=== PATIENT | male | born 1980 | race African-American/Black ===

== ENCOUNTER 2017-05-29 18:18 | Inpatient (IN) | payer MEDICAID, OTHER ==
[~2017-05-29] VITALS: Ht 190.5 cm; Wt 122.7 kg
[2017-05-29] MEDS ORDERED: CEFEPIME 2GM/50 ML (PMX) 50 ML IVPB STA (18:45)
[2017-05-29] MEDS ORDERED: SODIUM CHLORIDE 0.9% 1L BAG IV* STA (18:45)
[2017-05-29] MEDS ORDERED: ACETAMINOPHEN 650 MG SUPP PR ONE (19:00)
[2017-05-29] MEDS ORDERED: VANCOMYCIN 1 GM (PMX) 250 ML IVPB ONE (19:00)
--- NOTE | 2017-05-29 19:09 | RADRPT ---
PROCEDURE: XR Chest. CLINICAL INDICATION: Possible sepsis TECHNIQUE: Single frontal view of the chest was obtained COMPARISON: None FINDINGS: Tracheostomy tube with tip projecting 4.3 cm above the jenelle. Low lung volumes with bibasilar atelectasis. Perihilar ground-glass opacities most suggestive of mod erate interstitial pulmonary edema. Top normal cardiac silhouette. Elevated right hemidiaphragm. No acute osseous abnormality. IMPRESSION: Findings suggestive of moderate interstitial pulmonary edema. However, atypical infection could also have this appearance. Recommend clinical correlation. Low lung volumes with bibasilar atelectasis. RPTAT: EE Physician Rafael Date Time Electronically viewed and signed by Physician Rafael on 05/29/2017 19:08 /
[2017-05-29 20:08] LABS: ABNORMAL IP MESSAGE 1; BASOPHILS % 0.1 % (0.0-2.0); HEMATOCRIT 44.1 % (42.0-52.0); HEMOGLOBIN 13.7 g/dl (14.0-18.0); LYMPHOCYTES # 0.3 10^3/ul (0.8-2.9); LYMPHOCYTES % 1.5 % (15.0-51.0); MEAN CORPUSCULAR HEMOGLOBIN 22.7 pg (29.0-33.0); MEAN CORPUSCULAR HGB CONC 31.1 g/dl (32.0-37.0); MEAN CORPUSCULAR VOLUME 73.1 fl (82.0-101.0); MEAN PLATELET VOLUME 10.1 fl (7.4-10.4); MONOCYTE # 0.6 10^3/ul (0.3-0.9); MONOCYTES % 2.8 % (0.0-11.0); NEUTROPHIL # 20.5 10^3/ul (1.6-7.5); NEUTROPHILS % 94.8 % (39.0-77.0); PLATELET COUNT 223 10^3/UL (140-415); POSITIVE DIFF @See below; RED BLOOD COUNT 6.03 10^6/ul (4.70-6.10); RED CELL DISTRIBUTION WIDTH 15.5 % (11.5-14.5); WHITE BLOOD COUNT 21.7 10^3/ul (4.8-10.8)
[2017-05-29 20:20] LABS: INR 1.14; PROTIME 14.6 Sec (12.2-14.2); PT RATIO 1.1
[2017-05-29 20:21] LABS: PARTIAL THROMBOPLASTIN TIME 36.4 Sec (25.0-35.0)
[2017-05-29 20:22] LABS: AADO2 Arterial 186.3 mmHg (7.0-24.0); Allen Test ACCEPTAB; Arterial Base Excess -3.8 mmol/L (-3.0-3); Arterial COHb 0.8 % (0.0-3.0); Arterial Fraction of Oxyhgb 97.4 % (93.0-99.0); Arterial HCO3 20.8 mmol/L (22.0-26.0); Arterial MetHb 0.5 % (0.0-1.5); Arterial Total Hemglobin 14.1 g/dl (12.0-18.0); MODE VENT - AC
[2017-05-29 20:25] LABS: ALANINE AMINOTRANSFERASE 58 IU/L (13-69); ALBUMIN 3.9 g/dl (3.3-4.9); ALBUMIN/GLOBULIN RATIO 0.76; ALKALINE PHOSPHATASE 239 IU/L (42-121); ANION GAP 15 (8-16); ASPARTATE AMINO TRANSFERASE 40 IU/L (15-46); BILIRUBIN,INDIRECT 0.4 mg/dl (0-1.1); BILIRUBIN,TOTAL 1.4 mg/dl (0.2-1.3); BLOOD UREA NITROGEN 15 mg/dl (7-20); CALCIUM 9.2 mg/dl (8.4-10.2); CARBON DIOXIDE 22 mmol/L (21-31); CHLORIDE 104 mmol/L (97-110); CREATININE 0.69 mg/dl (0.61-1.24); GLUCOSE 117 mg/dl (70-220); POTASSIUM 4.4 mmol/L (3.5-5.1); SODIUM 137 mmol/L (135-144)
[2017-05-29 20:38] LABS: TROPONIN-I < 0.012 ng/ml (0.00-0.12)
--- NOTE | 2017-05-29 21:06 | ERA ---
ER Documentation Chief Complaint Date/Time DATE: 05/29/17 TIME: 21:03 Chief Complaint BROUGHT IN VIA PRIVATE AMBULANCE DUE TO CATHETER CHANGE HPI 36-year-old male with a history of traumatic brain injury, quadriplegia, seizure disorder, respiratory failure status post tracheostomy, encephalopathy, morbid obesity, anemia, diabetes mellitus type 2 and urinary retention sent to the ED from care home facility, [facility] for Rodriguez placement. Multiple attempts at the care home [facility] were unsuccessful. History is limited due to the patient's clinical condition is obtained entirely from care home facility records and transferring paramedics. No documented change in mental status, seizures, vomiting, respiratory distress or fevers. ROS Unobtainable except as per HPI due to the patient's clinical condition and cognitive impairment. Medications Home Meds Reported Medications Magnesium Hydroxide* (Milk Of Magnesia*) 400 Mg/5 Ml Oral.susp, 30 ML PO Y for CONSTIPATION, ML 05/30/17 Bisacodyl* (Bisacodyl*) 10 Mg Supp, 10 MG WI DAILY for CONSTIPATION, SUPP 05/30/17 Epinephrine (Epipen 2-Shadi) 0.3 Mg/0.3 Ml Pen.injctr, 0.3 MG IM DIRECTED, #1 EA 05/30/17 Diphenhydramine Hcl (Banophen) 12.5 Mg/5 Ml Liquid, 25 MG PO Q6 for ITCHING 05/30/17 Diphenhydramine in 0.9 % NaCl (Diphenhydramine 25 mg/50 ml-Ns) 25 Mg/50 Ml Piggyback, 12.5 MG IV 05/30/17 Hydrocodone Bit-Acetaminophen (Hydrocodone Bit-APAP) 5-325MG Tablet, 1.5 TAB PO Q6H, TAB 05/30/17 Acetaminophen* (Tylophen*) 500 Mg Capsule, 1000 MG PO Q6H Y for PAIN LEVEL 6-10 , TAB 05/30/17 Insulin Glargine* (Lantus*) 100 Unit/Ml Soln, 8 UNIT SC QHS, #1 VIAL 05/30/17 Sennosides* (Senna* Liq) 8.8 Mg/5 Ml Syrup, 5 ML PO BID, BOTTLE 05/30/17 Ipratropium-Albuterol (Ipratropium-Albuterol) 0.5-3 Mg/3 Ml Ampul.neb, 3 ML INHALATION Q6, #30 VIAL 05/30/17 Ipratropium [place]* (Atrovent HFA*) 12.9 Gm Aer.w.adap, 2 PUFF INHALATION Q4H for SHORTNESS OF BREATH, #1 INHALER 05/30/17 Docusate Sodium (Docu Liquid) 50 Mg/5 Ml Liquid, 200 MG PO DAILY 05/30/17 Selenomethionine* (Selenium*) 200 Mcg Tablet, 200 MCG PO DAILY, TAB 05/30/17 Ascorbic Acid (Vitamin C) 500 Mg Tab, 500 MG PO DAILY, TAB 05/30/17 Phenobarbital* (Phenobarbital*) 64.8 Mg Tablet, 64.8 MG PO BID, TAB 05/30/17 Fish Oil/Dha/Epa (FISH OIL 1,200 MG FISH OIL) 1 Each Capsule, 1 EACH PO TID, CAP 05/30/17 Calcium Carbonate/Vitamin D3 (Calcium 500 + Vit D 200 Tablet) 1 Each Tablet, 1 EACH PO DAILY, TAB 05/30/17 Polyethylene Glycol* (Miralax*) 17 Gm Powd.pack, 17 GM PO DAILY, #30 PACKET 05/30/17 Esomeprazole Magnesium (Esomeprazole Magnesium) 40 Mg Capsule.dr, 40 MG PO BEFORE BREAKFAST, #30 CAP 05/30/17 Lorazepam* (Lorazepam*) 1 Mg Tablet, 2 MG PO Q6 Y for SEIZURES, #60 TAB 05/30/17 Levalbuterol Hcl* (Levalbuterol Hcl*) 1.25 Mg/3 Ml Vial.neb, 1.25 MG INHALATION Q6H Y for WHEEZING AND SOB, VIAL 05/30/17 Baclofen* (Baclofen*) 10 Mg Tablet, 10 MG PO TID, TAB 05/30/17 Multivitamins* (Theragran*) 1 Tab Tab, 1 TAB PO DAILY, TAB 05/30/17 Allergies Allergies: Coded Allergies: No Known Allergy (Unverified , 05/29/17) PMhx/Soc As per [facility], care home facility resident. Medical and Surgical Hx: Unable to obtain History of Surgery: Yes (G-tube, tracheostomy) Hx Neurological Disorder: Yes (Quadraplegia, seizures) Hx Respiratory Disorders: Yes (vent dependent resp failure) Hx Cardiac Disorders: No Hx Psychiatric Problems: No Hx Miscellaneous Medical Probl: Yes Hx Alcohol Use: No Hx Substance Use: No Hx Tobacco Use: No Smoking Status: Never smoker FmHx Not relevant to presenting complaint Physical Exam Vitals Vital Signs Date Time Temp Pulse Resp B/P Pulse Ox O2 Delivery O2 Flow Rate FiO2 05/29/17 21:25 87 14 100 50 05/29/17 19:10 83 14 100 50 05/29/17 18:54 109 19 121/83 100 Mechanical Ventilator Trach Collar 05/29/17 18:53 109 17 100 50 05/29/17 18:22 101.0 104 19 98/56 95 Physical Exam Const: Chronically ill appearing, unresponsive. Head: s/p craniotomy Eyes: Normal Conjunctiva ENT: Normal External Ears, Nose and Mouth. Mucous membranes moist. Neck: Tracheostomy. No erythema, induration or drainage. Resp: BS diminished bilaterally with assisted ventilation. No wheezing. Cardio: Tachycardia. Regular rate and rhythm, no murmurs Abd: Soft, non tender. Normal bowel sounds. Mild suprapubic distention. G- tube site clean. Skin: No petechiae or rashes Back: No deformity Ext: No cyanosis. 1+edema Neur: Unresponsive, quadriplegia Physical exam is limited due to the constraints imposed by the patients clinical condition. Result Diagram: 05/30/17 0736 05/30/17 0736 Results 24 hrs Laboratory Tests Test 05/29/17 18:51 05/29/17 19:40 Blood Gas Specimen Source Blood arterial Arterial Blood Date Drawn 05/29/2017 8:10:58 PM Arterial Blood pH (Temp corrected) 7.373 Arterial Blood pCO2 (Temp correct) 36.5mmhg Arterial Blood pO2 (Temp corrected) 129.1mmHG Arterial Blood HCO3 20.8mmol/L Arterial Blood Base Excess -3.8mmol/L Arterial Blood Oxygen Saturation 98.7mmHG Robin Test ACCEPTAB Arterial Blood Gas Puncture Site Right Radial Arterial Blood Carboxyhemoglobin 0.8% Arterial Blood Methemoglobin 0.5% Blood Gas A-a O2 Differential 186.3mmHg Oxyhemoglobin Percent 97.4% Total Hemoglobin 14.1g/dl Blood Gas Temperature 37.0C Blood Gas Respiration Rate 14.0 Blood Gas Actual Respiration Rate 14 Blood Gas Modality VENT - AC FiO2 50.0% Blood Gas Tidal Volume 600.0mL Blood Gas Low PEEP Setting 5.0cmH2O Blood Gas Notified Whom MA Blood Gas Notified Time 05/29/2017 8:22:37 PM White Blood Count 21.710^3/ul Red Blood Count 6.0310^6/ul Hemoglobin 13.7g/dl Hematocrit 44.1% Mean Corpuscular Volume 73.1fl Mean Corpuscular Hemoglobin 22.7pg Mean Corpuscular Hemoglobin Concent 31.1g/dl Red Cell Distribution Width 15.5% Platelet Count 56142^3/UL Mean Platelet Volume 10.1fl Neutrophils % 94.8% Lymphocytes % 1.5% Monocytes % 2.8% Eosinophils % 0.0% Basophils % 0.1% Nucleated Red Blood Cells % 0.0/100WBC Neutrophils # 20.510^3/ul Lymphocytes # 0.310^3/ul Monocytes # 0.610^3/ul Eosinophils # 0.010^3/ul Basophils # 0.010^3/ul Nucleated Red Blood Cells # 0.010^3/ul Prothrombin Time 14.6Sec Prothrombin Time Ratio 1.1 INR International Normalized Ratio 1.14 Activated Partial Thromboplast Time 36.4Sec Sodium Level 137mmol/L Potassium Level 4.4mmol/L Chloride Level 104mmol/L Carbon Dioxide Level 22mmol/L Anion Gap 15 Blood Urea Nitrogen 15mg/dl Creatinine 0.69mg/dl Glucose Level 117mg/dl Lactic Acid Level 1.6mmol/L Calcium Level 9.2mg/dl Total Bilirubin 1.4mg/dl Direct Bilirubin 1.00mg/dl Indirect Bilirubin 0.4mg/dl Aspartate Amino Transf (AST/SGOT) 40IU/L Alanine Aminotransferase (ALT/SGPT) 58IU/L Alkaline Phosphatase 239IU/L Troponin I < 0.012ng/ml Total Protein 9.0g/dl Albumin 3.9g/dl Globulin 5.10g/dl Albumin/Globulin Ratio 0.76 Current Medications Medications (Trade) Dose Ordered Sig/Jh Route PRN Reason Start Time Stop Time Status Last Admin Dose Admin Sodium Chloride 3800 ml 3,800 ml BOLUS OVER 2 HOURS STAT IV* 05/29/17 18:45 05/29/17 18:48 DC 05/29/17 18:45 Cefepime HCl 50 ml @ 100 mls/hr ONCE STAT IVPB 05/29/17 18:45 05/29/17 19:14 DC 05/29/17 18:45 Vancomycin HCl (Vancocin) 250 ml @ 125 mls/hr ONCE ONCE IVPB 05/29/17 19:00 05/29/17 20:59 DC 05/29/17 19:00 Acetaminophen (Tylenol Supp) 650 mg ONCE ONCE WI 05/29/17 19:00 05/29/17 19:01 DC 05/29/17 19:00 IMAGING: PROCEDURE: XR Chest. CLINICAL INDICATION: Possible sepsis TECHNIQUE: Single frontal view of the chest was obtained COMPARISON: None FINDINGS: Tracheostomy tube with tip projecting 4.3 cm above the jenelle. Low lung volumes with bibasilar atelectasis. Perihilar ground-glass opacities most suggestive of moderate interstitial pulmonary edema. Top normal cardiac silhouette. Elevated right hemidiaphragm. No acute osseous abnormality. IMPRESSION: Findings suggestive of moderate interstitial pulmonary edema. However, atypical infection could also have this appearance. Recommend clinical correlation. Low lung volumes with bibasilar atelectasis. EKG: Time:18:58. Sinus tachycardia. Ventricular rate 113. Incomplete right bundle branch block. Nonspecific T-wave changes. No acute ST segment elevation or depression. No ectopy. EP interpretation: Abnormal ECG. Procedures/MDM DOCUMENTS REVIEWED: ED nurse, care home facility records and EMS report. MEDICAL DECISION MAKIN-year-old male with a history of traumatic brain injury, quadriplegia, seizure disorder, respiratory failure status post tracheostomy, encephalopathy, morbid obesity, anemia, diabetes mellitus type 2 and urinary retention sent to the ED from care home facility, [facility] for Rodriguez placement. SIRS criteria include fever, tachycardia and leukocytosis. Sepsis likely secondary to urinary tract infection and bacteremia. Possible pneumonia. NS 30cc/kg bolus, Zosyn and Vancomycin given after cultures. No hypotension, elevated lactate or criteria for severe sepsis or septic shock. Urinary retention with multiple unsuccessful catheterization attempts will require urology consultations. Admit to telemetry. PROCEDURES: CRITICAL CARE TIME: Due to the high probability of sudden clinically significant respiratory, hemodynamic and cardiovascular deterioration, this patient with vent dependent respiratory failure, quadriplegia s/p TBA who now present with SIRS and sepsis required multiple, frequent reevaluations of vital signs and response to therapy. Additional critical care time was spent in interpretation of relevant clinical data including labs, imaging studies and ABG 's, ventilator management, obtaining supplemental history from EMS and family, review of SNF records and arranging for ongoing care with the admitting physician, Dr. Conway. TOTAL CRITICAL CARE TIME: 40 minutes not including other separately reportable procedures. Counseled family regarding diagnosis, diagnostic results and plan for admission. CALLS/CONSULTS: Time 21:10, Dr. Conway. PATIENT CARE TRANSITIONED: Time: 21:20, Dr. Conway. Departure Diagnosis: Primary Impression: Sepsis Qualified Code: A41.9 - Sepsis, due to unspecified organism Additional Impressions: SIRS (systemic inflammatory response syndrome) Post-traumatic quadriplegia Urinary retention Respiratory failure, chronic Qualified Code: J96.10 - Chronic respiratory failure, unspecified whether with hypoxia or hypercapnia Tracheostomy dependence Condition: Critical ELI BROOKS MD May 29, 2017 21:06
[2017-05-29] MEDS ORDERED: ONDANSETRON 4 MG INJ IV PRN (22:00)
[2017-05-29] MEDS ORDERED: ACETAMINOPHEN 325 MG TAB PO PRN (22:00)
[2017-05-29 22:06] VITALS: TEMP 99
--- NOTE | 2017-05-29 23:04 | RADRPT ---
PROCEDURE: Ultrasound abdomen limited. CLINICAL INDICATION: Rodriguez catheter placement.. TECHNIQUE: Ultrasound of the urinary bladder was performed via a transabdominal approach, [employer] g sun scale imaging. COMPARISON: None. FINDINGS: The urinary bladder measures 10.0 x 10.0 x 6.4 cm. The urinary bladder wall thickening is identified . There is echogenic material the posterior urinary bladder lumen, nonspecific. No Rodriguez catheter is visualized. IMPRESSION: 1. No Rodriguez catheter is visualized. 2. Echogenic material in the posterior bladder lumen. This is nonspecific but could represent sedim ent, blood, or possibly a bladder mass. Doppler imaging was not performed. Correlation with urinalys is is recommended. RPTAT: HTAR .Juan Soto MD, MD Date Time Electronically viewed and signed by .Juan Soto MD, on 05/29/2017 23:04 .R/
[2017-05-29] MEDS ORDERED: PHENOBARBITAL 32.4 MG TAB GTB ONE (23:30)
[2017-05-30] VITALS (24 sets, daily range): BP systolic 98–133; BP diastolic 54–97; PULSE 79–133; RESP 14–26; Ht 190.5 cm; Wt 122.7 kg
[2017-05-30] MEDS ORDERED: MULTI PO (01:18)
[2017-05-30] MEDS ORDERED: ESOM40CA51 PO (01:28)
[2017-05-30] MEDS ORDERED: LORA1TAB PO (01:28)
[2017-05-30] MEDS ORDERED: LEVA1.257 INHALATION (01:28)
[2017-05-30] MEDS ORDERED: CALC-61 PO (01:28)
[2017-05-30] MEDS ORDERED: POLY17PO6 PO (01:28)
[2017-05-30] MEDS ORDERED: FISH1CAP PO (01:28)
[2017-05-30] MEDS ORDERED: BACL10TA PO (01:28)
[2017-05-30] MEDS ORDERED: PHEN64.8 PO (01:55)
[2017-05-30] MEDS ORDERED: HYDR-3498 PO (01:55)
[2017-05-30] MEDS ORDERED: SENN8.8S5 PO (01:55)
[2017-05-30] MEDS ORDERED: EPIN0.3P4 IM (01:55)
[2017-05-30] MEDS ORDERED: SELE200T11 PO (01:55)
[2017-05-30] MEDS ORDERED: IPRA3AMP INHALATION (01:55)
[2017-05-30] MEDS ORDERED: DIPH25PI2 IV (01:55)
[2017-05-30] MEDS ORDERED: LANT3I SC (01:55)
[2017-05-30] MEDS ORDERED: DOCU50LI11 PO (01:55)
[2017-05-30] MEDS ORDERED: ASC500 PO (01:55)
[2017-05-30] MEDS ORDERED: BISA10SU75 PR (01:55)
[2017-05-30] MEDS ORDERED: IPRA12.93 INHALATION (01:55)
[2017-05-30] MEDS ORDERED: ACET500C5 PO (01:55)
[2017-05-30] MEDS ORDERED: DIPH12.541 PO (01:55)
[2017-05-30] MEDS ORDERED: MAGN400O4 PO (01:58)
[2017-05-30] MEDS ORDERED: HYDROmorphONE 2 MG/ML SYG IV PRN (02:07)
[2017-05-30] MEDS: LORAZEPAM 1 MG TAB PO PRN ×2 (02:38→09:40)
[2017-05-30] MEDS ORDERED: SOD CHLORIDE 0.9% 1,000 ML IV SCH (02:45)
[2017-05-30] MEDS ORDERED: BARIUM SULF 2% 450 ML BTL (BERRY SMOOTHIE) PO ONE (03:00)
[2017-05-30] MEDS ORDERED: ONDANSETRON 4 MG INJ IV PRN (03:00)
[2017-05-30] MEDS ORDERED: ACETAMINOPHEN 500 MG TAB PO PRN (03:00)
[2017-05-30] MEDS ORDERED: IPRATROPIUM (HFA) 12.9 GM INHALER INH SCH (03:00)
[2017-05-30] MEDS ORDERED: NACL 0.9% 3 ML SYG IV SCH (03:00)
[2017-05-30] MEDS ORDERED: VANCOMYCIN IV PER PHARMACY XX SCH (03:00)
[2017-05-30] MEDS ORDERED: VANCOMYCIN 1.5 GM in SOD CHLORIDE 0.9% 250 ML IVPB SCH (06:00)
--- NOTE | 2017-05-30 06:26 | HP ---
Date/Time of Note Date/Time of Note DATE: 05/30/17 TIME: 06:06 Assessment/Plan VTE Prophylaxis VTE Prophylaxis Intervention: SCD's Lines/Catheters IV Catheter Type (from [facility]): Saline Lock Urinary Cath still in place: No (failed cisneros placement 1x; failed straight cath x2) Assessment/Plan Assessment/Plan 1. Urinary tract obstruction -Multiple attempts to insert the Cisneros as well as straight cath was unsuccessful. Patient now with gross hematuria, most likely from urethral injury -Urology consult 2. Sepsis, as evidenced by fever and leukocytosis, most likely secondary to UTI , and possibly from pneumonia as well -IV antibiotic -will send blood culture and when able urinalysis and urine culture as well. 3. Chronic trach/vent dependent respiratory failure -Continue vent support -Pulmonary to manage 4. Chronic vegetative state, Quadriplegia -Supportive care - Daughter Ellen Fuchs ([phone]) has conservatorship. 5. Dysphagia, s/p G-tube -Resume tube feeding HPI/ROS Admit Date/Time Admit Date/Time May 29, 2017 at 21:56 Hx of Present Illness This is a 36-year-old male who is in a chronic vegetative state, with a history of quadriplegia, trach/vent dependent respiratory failure, anemia, type II diabetes mellitus and urinary retention who was sent to the ED from SNF for Cisneros placement. Multiple attempts at the nursing home facility were unsuccessful. Patient is in a vegetative type of state and as such information is gathered from review of ER notes. Per ER, daughter Ellen Fuchs ) has conservatorship. She stated that he had similar problem with the Cisneros insertion years ago. When he presented to the ER, attempt to place a Cisneros was unsuccessful. He actually since then has been having gross hematuria. After Cisneros was inserted in the ER, abdominal ultrasound was done that showed nonspecific echogenic material in the posterior bladder lumen, which could represent sediment, blood, or possibly a bladder mass. No Cisneros was seen in the bladder. Once admitted to the floor, a straight catheterization was unsuccessful. Initial vitals shows temperature of 101 and the labs shows a WBC of almost 22, 000. CXR showed Findings suggestive of moderate interstitial pulmonary edema. However, atypical infection could also have this appearance. Urinalysis has not been done. . PMH/Family/Social Social History Smoking Status: Unknown if ever smoked Exam/Review of Systems Vital Signs Vitals Vital Signs Date Time Temp Pulse Resp B/P Pulse Ox O2 Delivery O2 Flow Rate FiO2 05/30/17 04:34 89 05/30/17 04:18 99.0 20 98/54 97 05/30/17 03:00 50 05/29/17 22:06 Mechanical Ventilator Trach Collar Exam Constitutional: other (Trach connected to the vent. Nonverbal. No acute distress) Head: atraumatic, normocephalic Neck: other (Trach tube in place) Respiratory: diminished breath sounds Cardiovascular: other (Tachycardic with regular rhythm) Gastrointestinal: other (G-tube in place, no sign of infection in the surrounding), surgical scars Extremities: normal pulses Labs Result Diagram: 05/29/17193905/29/171939 Medications Medications Current Medications Hydromorphone HCl (Dilaudid) 1.5 mg ONCE PRN IV PAIN Last administered on 02:24; Admin Dose 1.5 MG; Start 05/30/17 at 02:07 Lorazepam 2 mg 2 mg Q6H PRN PO SEIZURES Last administered on 05/30/17 02:38; Admin Dose 2 MG; Start 05/30/17 at 02:30 Sodium Chloride (NS) 1,000 ml @ 100 mls/hr Q10H IV ; Start 05/30/17 at 02:45; Stop 05/31/17 at 23:00 Ondansetron HCl (Zofran Inj) 4 mg Q6H PRN IV NAUSEA AND/OR VOMITING; Start at 03:00 Acetaminophen (Tylenol Tab) 650 mg Q6H PRN PO PAIN LEVEL 1-3 OR FEVER; Start at 03:00 Acetaminophen (Tylenol Tab) 1,000 mg Q6H PRN PO PAIN LEVEL 6-10; Start at 03:00 Ascorbic Acid (Vitamin C) 500 mg DAILY PO ; Start 05/30/17 at 09:00 Baclofen (Lioresal) 10 mg TID PO ; Start 05/30/17 at 09:00 Bisacodyl (Dulcolax Supp) 10 mg DAILY [place] ; Start 05/30/17 at 09:00 Docusate Sodium (Colace Liquid Cup) 200 mg DAILY PO ; Start 05/30/17 at 09:00 Insulin Glargine (Lantus) 8 unit QHS SC ; Start 05/30/17 at 21:00 Multivitamins Therapeutic (Theragran) 1 tab DAILY PO ; Start 05/30/17 at 09:00 Phenobarbital (Luminal) 64.8 mg BID PO ; Start 05/30/17 at 09:00 Polyethylene Glycol (Miralax) 17 gm DAILY PO ; Start 05/30/17 at 09:00 Senna 5 ml 5 ml BID PO ; Start 05/30/17 at 09:00 Cefepime HCl 50 ml @ 100 mls/hr Q12 IVPB ; Start 05/30/17 at 09:00 Vancomycin HCl/ Sodium Chloride (Vancocin/NS) 250 ml @ 83.333 mls/ hr Q8H IVPB ; Start 05/30/17 at 06:00 MYRON LAMA MD May 30, 2017 06:16
[2017-05-30] MEDS ORDERED: GLUCOSE GEL 15 GRAM TUBE PO PRN ×2 (07:30)
[2017-05-30] MEDS ORDERED: GLUCOSE GEL 15 GRAM TUBE BUCCAL PRN (07:30)
[2017-05-30] MEDS ORDERED: GLUCAGON 1 MG INJ IM PRN (07:30)
[2017-05-30] MEDS ORDERED: DEXTROSE 50% 50 ML SYRINGE IV PRN ×2 (07:30)
--- NOTE | 2017-05-30 07:46 | RADRPT ---
PROCEDURE: CT Abdomen and Pelvis without contrast. CLINICAL INDICATION: Abdominal pain. Abnormal ultrasound. Bladder mass. TECHNIQUE: CT scan of the abdomen and pelvis without contrast was performed on a multidetector hig h-resolution CT scanner. The patient was scanned without intravenous contrast. Evaluation for under lying bladder mass is limited due to lack of IV contrast. Evaluation is limited as the patient's arm s are in the field of view causing significant scatter artifact. Coronal and sagittal reformatted im ages were obtained from the axial source images. Images were reviewed on a high-resolution PACS work station. The total exam CTDI equals 23.25 mGy and the total exam DLP equals 1746.76 mGy-cm. One or more of the following dose reduction techniques were used: - Automated exposure control. - Adjustment of the mA and/or kV according to patient size. - Use of iterative reconstruction technique. COMPARISON: US ABDOMEN 05/29/2017; DR CHEST 05/29/2017 FINDINGS: Limited study due to lack of IV contrast. CT abdomen: Severe dense confluent consolidation is seen involving the entire right lower lung. The right upper lung is still aerated at this time. Dense subsegmental atelectasis is seen in the posterior left jonah g base. Increased vascular congestion and mild subtle interstitial edema is seen scattered throughou t the lungs as well. The heart size is normal, without pericardial thickening or effusion. The liver is normal in size and density without focal mass or intrahepatic biliary dilatation. The spleen is normal in size and homogeneous in density. The stomach is partially collapsed, but is gwen ssly unremarkable. There is a G-tube in place within the stomach, in appropriate location. The pancr eas as visualized is normal. The gallbladder is remarkable for numerous small subtle layering galls tones; the biliary tree is unremarkable and there is no evidence for biliary dilatation. The adrena l glands are symmetric and normal. The kidneys are symmetrically remarkable for mild bilateral hydr onephrosis. The ureters are dilated down to the bladder region. No renal calculus or renal mass les ion is seen. The aorta is of normal caliber. Aortic vascular calcifications are present. There is no retroperit michaels lymphadenopathy. Abundant small shoddy reactive lymph nodes are seen throughout the retroperi toneum, not pathologically enlarged by size criteria. The crystal hepatis region is clear. The bowel and mesentery, as visualized, are equally unremarkable. Surgical microstaple line is seen involving a loop of bowel in the right anterior mid abdomen, old and chronic. Minimal fluid and soft tissue th ickening along the right pericolic gutter region is seen, nonspecific. CT pelvis: The bladder is distended. Air is seen along the anterior and wall of the bladder secondary to previo us recent instrumentation. There is significant hyperdense material along the posterior dependent po rtion of the bladder presumably representing hemorrhage. The patient has a history of mass lesion an d this hemorrhage may be obscure an underlying mass lesion. Further evaluation with cystoscopy is ad vised as evaluation is significantly limited due to lack of IV contrast. The small bowel loops situated within the pelvis are unremarkable. The ureters are mildly dilated do wn to the bladder. There is obstruction of the ureters secondary to the hemorrhage and bladder diste nsion and other acute process ongoing within the bladder at this time. The pelvic organs are grossly unremarkable. The prostate gland does not appear to be significantly enlarged. The pelvic sidewall s and inguinal regions are clear. The sigmoid colon and rectum are remarkable for contrast within t he distal colon. No acute colonic abnormality is present. No pelvic mass or adenopathy is seen. No free fluid is present. No acute inflammation is identified at this time. The surrounding osseous structures are remarkable for degenerative spondylosis of the spine. No ost eolytic or osteoblastic lesion is detected. Multiple mild subtle superior endplate compression fract ures throughout the lumbar spine is seen at every level. These are benign and chronic in nature. Cirilo ign chronic senescent changes are seen elsewhere throughout the study. Diffuse bony demineralization is present. Severe chronic degenerative changes of the hip joints is seen bilaterally. IMPRESSION: 1. Limited evaluation due to lack of IV contrast. 2. Distended bladder with a large area of presumed hemorrhage accumulating within the bladder. Unde rlying bladder mass cannot be excluded, and further evaluation with cystoscopy is advised. 3. Dense confluent consolidation involving the entire right lower lung, with dense subsegmental ate lectasis in the posterior left lung base. 4. Bilateral hydronephrosis secondary to ureteral obstruction at the level of the bladder. 5. Severe chronic bony demineralization with multiple old vertebral body compression fractures. 6. Other benign reactive changes and postsurgical changes, as discussed above. RPTAT: HMJB .Erich García MD, MD Date Time Electronically viewed and signed by .Erich García MD, MD on 05/30/2017 07:46 .B/
[2017-05-30] MEDS ORDERED: ALBUTEROL/IPRATROPIUM (NEB) 3 ML AMP HHN SCH (08:00)
[2017-05-30] MEDS: ALBUTEROL 18 GM INHALER INH SCH ×3 (08:04→19:33)
[2017-05-30] MEDS: IPRATROPIUM (HFA) 12.9 GM INHALER INH SCH ×3 (08:04→19:33)
[2017-05-30 08:09] LABS: ABNORMAL IP MESSAGE 1; BASOPHIL # 0.1 10^3/ul (0.0-0.1); BASOPHILS % 0.3 % (0.0-2.0); EOSINOPHILS # 0.1 10^3/ul (0.0-0.5); EOSINOPHILS % 0.3 % (0.0-7.0); HEMATOCRIT 39.3 % (42.0-52.0); HEMOGLOBIN 11.8 g/dl (14.0-18.0); LYMPHOCYTES # 0.7 10^3/ul (0.8-2.9); MEAN CORPUSCULAR HEMOGLOBIN 22.3 pg (29.0-33.0); MEAN CORPUSCULAR VOLUME 74.3 fl (82.0-101.0); MEAN PLATELET VOLUME 10.6 fl (7.4-10.4); MONOCYTE # 1.1 10^3/ul (0.3-0.9); MONOCYTES % 4.8 % (0.0-11.0); NEUTROPHIL # 20.6 10^3/ul (1.6-7.5); NEUTROPHILS % 90.2 % (39.0-77.0); PLATELET COUNT 199 10^3/UL (140-415); POSITIVE DIFF @See below; RED BLOOD COUNT 5.29 10^6/ul (4.70-6.10); WHITE BLOOD COUNT 22.8 10^3/ul (4.8-10.8)
[2017-05-30 08:35] LABS: ALBUMIN 3.5 g/dl (3.3-4.9); ALBUMIN/GLOBULIN RATIO 0.72; BILIRUBIN,DIRECT 0.7 mg/dl (0.00-0.20); BILIRUBIN,INDIRECT 0.5 mg/dl (0-1.1); BILIRUBIN,TOTAL 1.2 mg/dl (0.2-1.3); CALCIUM 8.4 mg/dl (8.4-10.2); CREATININE 0.62 mg/dl (0.61-1.24); MAGNESIUM 1.8 mg/dl (1.7-2.5); POTASSIUM 4.5 mmol/L (3.5-5.1); TOTAL PROTEIN 8.3 g/dl (6.1-8.1)
[2017-05-30] MEDS: SENNA (PO SYG) PO SCH (09:00)
[2017-05-30] MEDS: DOCUSATE SODIUM 10 MG/ML (10ML CUP) PO SCH (09:00)
[2017-05-30] MEDS: BISACODYL 10 MG SUPP PR SCH (09:00)
[2017-05-30] MEDS: POLYETHYLENE GLYCOL 17 GM PACKET PO SCH (09:00)
[2017-05-30] MEDS: CEFEPIME 1GM/50 ML (PMX) 50 ML IVPB SCH ×2 (09:40→22:08)
[2017-05-30] MEDS: ASCORBIC ACID 500 MG TAB PO SCH (09:40)
[2017-05-30] MEDS: MULTIVITAMINS THERAPEUTIC TAB PO SCH (09:40)
[2017-05-30] MEDS: BACLOFEN 10 MG TAB PO SCH ×3 (09:40→22:08)
[2017-05-30] MEDS: PHENOBARBITAL 32.4 MG TAB PO SCH ×2 (09:47→22:22)
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
[2017-05-30 12:08] LABS: IRON 26 ug/dl (35-150)
[2017-05-30 12:17] LABS: TOTAL IRON BINDING CAPACITY 252 ug/dl (241-421)
[2017-05-30] MEDS: SOD CHLORIDE 0.45% 1,000 ML IV SCH (13:09)
[2017-05-30] MEDS ORDERED: LIDOCAINE 1% (MPF) 5 ML VIAL SC ONE ×2 (14:00)
[2017-05-30] MEDS ORDERED: EPINEPHRINE 0.3 MG IM SCH (15:00)
[2017-05-30] MEDS ORDERED: IOHEXOL 300MG/ML 30 ML BTL ONE (15:16)
--- NOTE | 2017-05-30 15:52 | RADRPT ---
PROCEDURE: Ultrasound guidance for placement of needle in left upper extremity vein. CLINICAL INDICATION: Venous access. TECHNIQUE: Limited sonography of the left upper extremity was performed. Ultrasound images were recorded and s tored in the patient's medical record. COMPARISON: None. FINDINGS: The ultrasound images demonstrate a patent left upper extremity vein. The PICC line was inserted by the PICC line nurse. IMPRESSION: 1. Ultrasound guidance for a needle placement in a left upper extremity vein. 2. The left upper extremity vein is patent. RPTAT: QQ .Quirino Valera MD, MD Date Time Electronically viewed and signed by .Quirino Valera MD, MD on 05/30/2017 15:52 .R/
--- NOTE | 2017-05-30 16:36 | RADRPT ---
PROCEDURE: XR Chest. CLINICAL INDICATION: PICC line placement . TECHNIQUE: Single frontal chest x-ray. COMPARISON: None. FINDINGS: There is a guide wire extending from the left upper extremity with tip at the subclavian region. Tra cheostomy tube is in place. . There is bibasilar atelectasis or consolidations increased on the righ t.. Cardiomegaly is unchanged.. The osseous structures are intact. IMPRESSION: Tracheostomy tube in place. Bibasilar atelectasis or consolidations increased on the right. Left upper extremity guidewire in place with tip at the subclavian region.. RPTAT: GG .Guero Powers MD, Date Time Electronically viewed and signed by .Guero Powers MD, on 05/30/2017 16:35 .L/
[2017-05-30] MEDS ORDERED: LEVALBUTEROL (NEB) 1.25 MG/0.5 ML AMP INH PRN (17:00)
--- NOTE | 2017-05-30 17:11 | RADRPT ---
PROCEDURE: Ultrasound guidance for placement of needle in right upper extremity vein. CLINICAL INDICATION: Venous access. TECHNIQUE: Limited sonography of the right upper extremity was performed. Ultrasound images were recorded and stored in the patient's medical record. COMPARISON: None. FINDINGS: The ultrasound images demonstrate a patent right upper extremity vein. The PICC line was inserted b y the PICC line nurse. IMPRESSION: 1. Ultrasound guidance for a needle placement in a right upper extremity vein. 2. The visualized right upper extremity vein is patent. RPTAT: QQ .Quirino Valera MD, MD Date Time Electronically viewed and signed by .Quirino Valera MD, MD on 05/30/2017 17:11 .R/
--- NOTE | 2017-05-30 17:29 | RADRPT ---
PROCEDURE: XR Chest. CLINICAL INDICATION: Catheter placement, venous occlusion TECHNIQUE: AP Portable chest. COMPARISON: 05/30/2017 04:40 p.m. FINDINGS: The right PICC line has been pulled back with the tip in the right subclavian vein. Tracheostomy tub e is midline. Left IJ catheter is unchanged. There is tubing artifact over the right upper chest. The cardiac silhouette is enlarged. No pneumothorax is seen. Bibasilar pleural parenchymal opacities are unchanged. The hemidiaphragms are obscured. The osseous structures are intact. IMPRESSION: Right PICC line has been pulled back with the tip in the subclavian vein. Unchanged bibasilar pleural parenchymal opacities, and mild edema. Physician Edson Date Time Electronically viewed and signed by Physician Edson on 05/30/2017 17:28 /
[2017-05-30] MEDS: INSULIN ASPART [NOVOLOG] 3 ML PEN SC SCH ×2 (17:36→21:00)
--- NOTE | 2017-05-30 18:11 | RADRPT ---
PROCEDURE: Left upper extremity contrast venogram. CLINICAL INDICATION: Physical placement of left arm PICC line. TECHNIQUE: 10 ml Omnipaque-300 was injected into the PICC line in the left axillary region and a s terrence frontal view of the chest was obtained. COMPARISON: Prior chest x-ray done earlier the same day. FINDINGS: Contrast is present in multiple collateral veins in the left chest wall. There is no contrast in lef t axillary or subclavian vein. IMPRESSION: 1. Completely occluded left subclavian vein. RPTAT: QQ .Quirino Valera MD, MD Date Time Electronically viewed and signed by .Quirino Valera MD, on 05/30/2017 18:11 .R/
--- NOTE | 2017-05-30 18:14 | RADRPT ---
PROCEDURE: XR Chest. CLINICAL INDICATION: Check PICC line position. TECHNIQUE: Single frontal view. COMPARISON: Prior study done earlier the same day. FINDINGS: There is a right arm PICC line with the tip in the collateral vein in the right upper chest wall. T he tracheostomy tube remains in position. There is atelectasis at the lung bases with right worse th an left. The heart is enlarged. There is no pleural effusion. There is no pneumothorax. IMPRESSION: 1. Right arm PICC line tip in collateral vein in the right upper chest wall. 2. No other change from the prior study done earlier the same day. RPTAT: QQ .Quirino Valera MD, MD Date Time Electronically viewed and signed by .Quirino Valera MD, on 05/30/2017 18:13 .R/
--- NOTE | 2017-05-30 18:16 | RADRPT ---
PROCEDURE: XR Chest. CLINICAL INDICATION: Check PICC line position. TECHNIQUE: Single frontal view. COMPARISON: Prior study done earlier the same day. FINDINGS: There is a right arm PICC line with the tip in the right internal jugular vein. The tracheostomy tu be remains in satisfactory position. There is atelectasis at the lung bases with right worse than le ft, unchanged. The heart is enlarged. There is no pleural effusion. There is no pneumothorax. IMPRESSION: 1. Right arm PICC line tip in right internal jugular vein. 2. No other change from the prior study done earlier the same day. RPTAT: QQ .Quirino Valera MD, MD Date Time Electronically viewed and signed by .Quirino Valera MD, on 05/30/2017 18:16 .R/
--- NOTE | 2017-05-30 18:30 | RADRPT ---
AMENDMENT: 05/30/2017 7:21:19 PM Quirino Valera MD Correction: The right axillary vein is patent. However, there is occlusion of the mid right subclav kaitlin vein. PROCEDURE: Right upper extremity contrast venogram. CLINICAL INDICATION: Difficult placement of right arm PICC line. TECHNIQUE: 10 ml Omnipaque-300 was injected into the PICC line in the right axillary region and a si ngle frontal view of the chest was obtained. COMPARISON: Prior chest x-ray done earlier the same day. FINDINGS: Contrast is present in a small right axillary vein and right subclavian vein. IMPRESSION: 1. Small but patent right axillary and subclavian vein. RPTAT: QQ .Quirino Valera MD, MD Date Time Electronically viewed and signed by .Quirino Valera MD, MD on 05/30/2017 19:21 .R/
[2017-05-30] MEDS ORDERED: FISH OIL 1,000 MG CAP PO SCH (21:00)
[2017-05-30] MEDS: INSULIN GLARGINE [LANtus] 3 ML PEN SC SCH (22:13)
--- NOTE | 2017-05-30 22:33 | PN ---
DATE: 05/30/2017 REQUESTING PHYSICIAN: Dr. Bai. Thank you Dr. Bai for this consultation. HISTORY OF PRESENT ILLNESS: This is a debilitated, 36-year-old man from [facility] facility with a history of chronic respiratory failure, quadriplegia, persistent vegetative state, diabetes, anemia, urinary retention. Acutely, the patient was admitted with urinary retention after unsuccessful multiple attempts of placement of Rodriguez catheter at nursing facility. Patient came with fever of 101, heart rate 104, respirations 19, blood pressure 98/56, saturation 95% on vent. WBC 21.7, H and H 13.7 and 44.1, platelets 223,000, neutrophils 94.8, no bands. Sodium 137, potassium 4.4, carbon dioxide 22, BUN 15, creatinine 0.69. Lactic acid 1.6, total bilirubin 1.4, alk phos 239, AST 40, ALT 58, albumin 3.9. MICROBIOLOGY: Blood culture growing gram-negative rods, preliminary. INDWELLINGS: Patient has trach, PEG, peripheral IV. ANTIMICROBIALS: He was started on IV vancomycin and given a dose of cefepime. He is not allergic to any antibiotics or medications. PHYSICAL EXAMINATION: GENERAL: This is a chronically ill-appearing, middle-aged man who is in persistent vegetative state. HEENT: Head atraumatic, normocephalic. Sclerae anicteric. Buccal mucosa dry. NECK: Supple. Tracheostomy present. CHEST: Rise symmetrical. Breath sounds diminished at the bases. HEART: S1, S2. ABDOMEN: Soft, bowel sounds hypoactive. EXTREMITIES: With bilateral edema. SKIN: With severe anasarca. No rashes. No cyanosis. IMPRESSION: This is a 36-year-old man with numerous medical problems, admitted with sepsis, gram-negative gilbert bacteremia likely secondary to urinary tract infection. The patient has significant urinary retention and awaiting for urology evaluation for placement of Rodriguez catheter. He is currently on vancomycin and cefepime. We are going to discontinue vancomycin and keep him on cefepime to cover gram-negative rods which he is growing in his blood. Await for final cultures. Await for urology evaluation and once patient has Rodriguez catheter placement will send urine for culture as well. Discussed with Dr. Elias Esteban. Dictated By: Chau Swartz NP /guerline/jose luis /Document#: [id number] MTDD
[2017-05-30 23:00] LABS: HEMATOCRIT 36.5 % (42.0-52.0)
[2017-05-31] VITALS (23 sets, daily range): BP systolic 100–130; BP diastolic 56–84; PULSE 95–130; RESP 15–24
[2017-05-31] MEDS: SOD CHLORIDE 0.45% 1,000 ML IV SCH ×2 (00:51→18:38)
[2017-05-31] MEDS: SENNA (PO SYG) PO SCH ×2 (00:55→09:00)
[2017-05-31] MEDS: ALBUTEROL 18 GM INHALER INH SCH ×4 (01:41→19:53)
[2017-05-31] MEDS: IPRATROPIUM (HFA) 12.9 GM INHALER INH SCH ×4 (01:41→19:52)
[2017-05-31] MEDS ORDERED: ACCU-CHEK XX SCH ×2 (02:00)
[2017-05-31] MEDS ORDERED: morphine 4 MG/ML VIAL IV ONE (03:56)
[2017-05-31] MEDS: INSULIN ASPART [NOVOLOG] 3 ML PEN SC SCH ×4 (06:00→18:00)
[2017-05-31 07:11] LABS: BASOPHILS % 0.2 % (0.0-2.0); EOSINOPHILS % 0.1 % (0.0-7.0); HEMATOCRIT 35.4 % (42.0-52.0); HEMOGLOBIN 10.7 g/dl (14.0-18.0); LYMPHOCYTES # 0.6 10^3/ul (0.8-2.9); LYMPHOCYTES % 4.2 % (15.0-51.0); MEAN CORPUSCULAR HEMOGLOBIN 22.3 pg (29.0-33.0); MEAN CORPUSCULAR HGB CONC 30.2 g/dl (32.0-37.0); MEAN CORPUSCULAR VOLUME 73.8 fl (82.0-101.0); MEAN PLATELET VOLUME 10.4 fl (7.4-10.4); MONOCYTE # 0.8 10^3/ul (0.3-0.9); MONOCYTES % 5.7 % (0.0-11.0); NEUTROPHIL # 12.7 10^3/ul (1.6-7.5); NEUTROPHILS % 87.5 % (39.0-77.0); PLATELET COUNT 172 10^3/UL (140-415); POSITIVE DIFF @See below; RED CELL DISTRIBUTION WIDTH 15.8 % (11.5-14.5); WHITE BLOOD COUNT 14.5 10^3/ul (4.8-10.8)
[2017-05-31 07:44] LABS: PHOSPHORUS 3.6 mg/dl (2.5-4.9)
[2017-05-31 08:16] LABS: CALCIUM 8.2 mg/dl (8.4-10.2); CREATININE 0.94 mg/dl (0.61-1.24); POTASSIUM 3.8 mmol/L (3.5-5.1)
[2017-05-31] MEDS ORDERED: SELENOMETHIONINE 200 MCG PO SCH (09:00)
[2017-05-31] MEDS: BISACODYL 10 MG SUPP PR SCH (09:00)
[2017-05-31] MEDS: DOCUSATE SODIUM 10 MG/ML (10ML CUP) PO SCH (09:45)
[2017-05-31] MEDS: ASCORBIC ACID 500 MG TAB PO SCH (09:45)
[2017-05-31] MEDS: ACETAMINOPHEN 325 MG TAB PO PRN (09:46)
[2017-05-31] MEDS: METOPROLOL 25 MG TAB PO SCH ×2 (09:46→21:00)
[2017-05-31] MEDS: CEFEPIME 1GM/50 ML (PMX) 50 ML IVPB SCH (09:47)
[2017-05-31] MEDS: MULTIVITAMINS THERAPEUTIC TAB PO SCH (09:47)
[2017-05-31] MEDS: POLYETHYLENE GLYCOL 17 GM PACKET PO SCH (09:47)
[2017-05-31] MEDS: BACLOFEN 10 MG TAB PO SCH ×2 (09:50→13:38)
[2017-05-31] MEDS: PHENOBARBITAL 32.4 MG TAB PO SCH (09:51)
[2017-05-31] MEDS: FISH OIL 1,000 MG CAP PO SCH ×3 (09:54→21:00)
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
--- NOTE | 2017-05-31 19:04 | CONS ---
Date/Time of Note Date/Time of Note DATE: 05/31/17 TIME: 19:03 Consult Date/Type/Reason Admit Date/Time May 29, 2017 at 21:56 Initial Consult Date 05/30/17 Type of Consultation: Pulmonary Subjective On vent. No events. Objective Vital Signs Date Time Temp Pulse Resp B/P Pulse Ox O2 Delivery O2 Flow Rate FiO2 05/31/17 17:06 111 16 100 30 05/31/17 15:10 99.0 105/58 05/29/17 22:06 Mechanical Ventilator Trach Collar Intake and Output 05/30/17 05/30/17 05/31/17 15:00 23:00 07:00 Intake Total 1875 ml 1010 ml Output Total 900 ml Balance 1875 ml 110 ml Exam HEENT: Neck supple; no JVD; no LAD; trach clean CVS: RRR, S1 and S2 CHEST: Clear ABD: Soft, NT, + BS EXT: No c/c/e Results/Medications Result Diagram: 05/31/17 0640 05/31/17 0640 Results 24 hrs Laboratory Tests Test 05/30/17 22:01 05/30/17 22:02 05/31/17 00:32 05/31/17 06:09 Bedside Glucose 114 117 151 Hemoglobin 11.0 L Hematocrit 36.5 L Test 05/31/17 06:40 05/31/17 11:21 05/31/17 18:12 White Blood Count 14.5 #H Red Blood Count 4.80 Hemoglobin 10.7 L Hematocrit 35.4 L Mean Corpuscular Volume 73.8 L Mean Corpuscular Hemoglobin 22.3 L Mean Corpuscular Hemoglobin Concent 30.2 L Red Cell Distribution Width 15.8 H Platelet Count 172 Mean Platelet Volume 10.4 Neutrophils % 87.5 H Lymphocytes % 4.2 L Monocytes % 5.7 Eosinophils % 0.1 Basophils % 0.2 Nucleated Red Blood Cells % 0.0 Neutrophils # 12.7 H Lymphocytes # 0.6 L Monocytes # 0.8 Eosinophils # 0.0 Basophils # 0.0 Nucleated Red Blood Cells # 0.0 Sodium Level 140 Potassium Level 3.8 Chloride Level 112 H Carbon Dioxide Level 20 L Anion Gap 12 Blood Urea Nitrogen 24 H Creatinine 0.94 Glucose Level 128 Calcium Level 8.2 L Phosphorus Level 3.6 Magnesium Level 2.0 Bedside Glucose 162 117 Medications Current Medications Hydromorphone HCl (Dilaudid) 1.5 mg ONCE PRN IV PAIN Last administered on 02:24; Admin Dose 1.5 MG; Start 05/30/17 at 02:07 Lorazepam (Ativan) 2 mg Q6H PRN PO SEIZURES Last administered on 05/30/17 09: 40; Admin Dose 2 MG; Start 05/30/17 at 02:30 Ondansetron HCl (Zofran Inj) 4 mg Q6H PRN IV NAUSEA AND/OR VOMITING; Start at 03:00 Acetaminophen (Tylenol Tab) 650 mg Q6H PRN PO PAIN LEVEL 1-3 OR FEVER Last administered on 05/31/17 09:46; Admin Dose 650 MG; Start 05/30/17 at 03:00 Acetaminophen (Tylenol Tab) 1,000 mg Q6H PRN PO PAIN LEVEL 6-10; Start at 03:00 Ascorbic Acid (Vitamin C) 500 mg DAILY PO Last administered on 05/31/17 09:45 ; Admin Dose 500 MG; Start 05/30/17 at 09:00 Baclofen (Lioresal) 10 mg TID PO Last administered on 05/31/17 13:38; Admin Dose 10 MG; Start 05/30/17 at 09:00 Bisacodyl (Dulcolax Supp) 10 mg DAILY [place] ; Start 05/30/17 at 09:00 Docusate Sodium (Colace Liquid Cup) 200 mg DAILY PO Last administered on 09:45; Admin Dose 200 MG; Start 05/30/17 at 09:00 Insulin Glargine (Lantus) 8 unit QHS SC Last administered on 05/30/17 22:13; Admin Dose 8 UNIT; Start 05/30/17 at 21:00 Multivitamins Therapeutic (Theragran) 1 tab DAILY PO Last administered on 09:47; Admin Dose 1 TAB; Start 05/30/17 at 09:00 Phenobarbital (Luminal) 64.8 mg BID PO Last administered on 05/31/17 09:51; Admin Dose 64.8 MG; Start 05/30/17 at 09:00 Polyethylene Glycol (Miralax) 17 gm DAILY PO Last administered on 05/31/17 09: 47; Admin Dose 17 GM; Start 05/30/17 at 09:00 Senna 5 ml 5 ml BID PO Last administered on 05/31/17 00:55; Admin Dose 5 ML; Start 05/30/17 at 09:00 Cefepime HCl (Maxipime 1gm/50 ml (Pmx)) 50 ml @ 100 mls/hr Q12 IVPB Last administered on 05/31/17 09:47; Admin Dose 100 MLS/HR; Start 05/30/17 at 09:00 Miscellaneous Information 1 ea NOTE XX ; Start 05/30/17 at 07:30 Glucose (Glutose) 15 gm Q15M PRN PO DECREASED GLUCOSE; Start 05/30/17 at 07:30 Glucose (Glutose) 22.5 gm Q15M PRN PO DECREASED GLUCOSE; Start 05/30/17 at 07: 30 Dextrose (D50w Syringe) 25 ml Q15M PRN IV DECREASED GLUCOSE; Start 05/30/17 at 07:30 Dextrose (D50w Syringe) 50 ml Q15M PRN IV DECREASED GLUCOSE; Start 05/30/17 at 07:30 Glucagon (Glucagen) 1 mg Q15M PRN IM DECREASED GLUCOSE; Start 05/30/17 at 07:30 Glucose 15 gm 15 gm Q15M PRN BUCCAL DECREASED GLUCOSE; Start 05/30/17 at 07:30 Sodium Chloride (1/2 NS) 1,000 ml @ 75 mls/hr [id number] IV Last administered on 05/31/17 18:38; Admin Dose 75 MLS/HR; Start 05/30/17 at 12:00 Lorazepam (Ativan) 1 mg Q1H PRN IV SEIZURES; Start 05/30/17 at 15:00 IV Flush (NS 10 ml) 10 ml PRN PRN IV IV PROTOCOL; Start 05/30/17 at 18:30 Insulin Aspart (Novolog Insulin Pen) NOVOLOG *MILD* ALGORI... Q6 SC Last administered on 05/31/17 11:43; Admin Dose 1 UNIT; Start 05/31/17 at 00:00 Metoprolol Tartrate (Lopressor) 25 mg BID PO Last administered on 05/31/17 09: 46; Admin Dose 25 MG; Start 05/31/17 at 09:00 Fish Oil (Fish Oil) 1,000 mg TID PO Last administered on 05/31/17t 13:38; Admin Dose 1,000 MG; Start 05/31/17 at 10:00 Assessment/Plan Additional Assessment/Plan IMP: 1. Urosepsis 2. VDRF RECS: 1. Abx per ID 2. Vent support BRIANDA ADAMS MD May 31, 2017 19:04
[2017-06-01] VITALS (24 sets, daily range): BP systolic 109–129; BP diastolic 55–81; PULSE 85–100; RESP 14–25
[2017-06-01] MEDS: SENNA (PO SYG) PO SCH ×3 (00:51→21:27)
[2017-06-01] MEDS: CEFEPIME 1GM/50 ML (PMX) 50 ML IVPB SCH ×2 (00:54→09:15)
[2017-06-01] MEDS: BACLOFEN 10 MG TAB PO SCH ×4 (00:59→21:27)
[2017-06-01] MEDS: PHENOBARBITAL 32.4 MG TAB PO SCH ×3 (01:00→21:28)
[2017-06-01] MEDS: INSULIN GLARGINE [LANtus] 3 ML PEN SC SCH ×2 (01:04→22:57)
[2017-06-01] MEDS: IPRATROPIUM (HFA) 12.9 GM INHALER INH SCH ×4 (01:31→19:20)
[2017-06-01] MEDS: ALBUTEROL 18 GM INHALER INH SCH ×4 (01:32→19:20)
[2017-06-01] MEDS ORDERED: morphine 4 MG/ML VIAL IV PRN (02:30)
[2017-06-01] MEDS ORDERED: morphine (ER) 30 MG TAB PO SCH (02:30)
[2017-06-01] MEDS ORDERED: FENTAnyl PATCH 75 MCG/HR TRANSDERM SCH (04:00)
[2017-06-01] MEDS: SOD CHLORIDE 0.45% 1,000 ML IV SCH ×2 (04:36→09:13)
[2017-06-01] MEDS: INSULIN ASPART [NOVOLOG] 3 ML PEN SC SCH ×4 (06:00→18:00)
[2017-06-01 06:41] LABS: BASOPHILS % 0.2 % (0.0-2.0); EOSINOPHILS # 0.1 10^3/ul (0.0-0.5); EOSINOPHILS % 0.7 % (0.0-7.0); HEMATOCRIT 31.7 % (42.0-52.0); HEMOGLOBIN 9.9 g/dl (14.0-18.0); LYMPHOCYTES # 1.1 10^3/ul (0.8-2.9); MEAN CORPUSCULAR HEMOGLOBIN 22.7 pg (29.0-33.0); MEAN CORPUSCULAR HGB CONC 31.2 g/dl (32.0-37.0); MEAN CORPUSCULAR VOLUME 72.7 fl (82.0-101.0); MEAN PLATELET VOLUME 11.1 fl (7.4-10.4); MONOCYTE # 0.8 10^3/ul (0.3-0.9); MONOCYTES % 7.3 % (0.0-11.0); NEUTROPHIL # 9.2 10^3/ul (1.6-7.5); NEUTROPHILS % 81.3 % (39.0-77.0); PLATELET COUNT 172 10^3/UL (140-415); RED BLOOD COUNT 4.36 10^6/ul (4.70-6.10); RED CELL DISTRIBUTION WIDTH 15.7 % (11.5-14.5); WHITE BLOOD COUNT 11.4 10^3/ul (4.8-10.8)
[2017-06-01 07:04] LABS: MAGNESIUM 2.2 mg/dl (1.7-2.5); PHOSPHORUS 2.6 mg/dl (2.5-4.9)
[2017-06-01 07:23] LABS: CALCIUM 8.3 mg/dl (8.4-10.2); CREATININE 0.62 mg/dl (0.61-1.24); POTASSIUM 3.1 mmol/L (3.5-5.1)
[2017-06-01] MEDS: BISACODYL 10 MG SUPP PR SCH (09:00)
[2017-06-01] MEDS: METOPROLOL 25 MG TAB PO SCH ×2 (09:00→21:28)
[2017-06-01] MEDS: DOCUSATE SODIUM 10 MG/ML (10ML CUP) PO SCH (09:11)
[2017-06-01] MEDS: FISH OIL 1,000 MG CAP PO SCH ×3 (09:12→21:27)
[2017-06-01] MEDS: ASCORBIC ACID 500 MG TAB PO SCH (09:12)
[2017-06-01] MEDS: POLYETHYLENE GLYCOL 17 GM PACKET PO SCH (09:12)
[2017-06-01] MEDS: MULTIVITAMINS THERAPEUTIC TAB PO SCH (09:12)
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
[2017-06-01] MEDS ORDERED: HYDROCODONE/APAP (7.5/325) TAB PO PRN (11:30)
[2017-06-01] MEDS: POTASSIUM CHLORIDE 250 ML IVPB SCH ×2 (11:36→16:26)
[2017-06-01] MEDS ORDERED: morphine 2 MG INJ IV PRN (12:00)
[2017-06-01] MEDS: SOD FERRIC GLUC COMPLX 125 MG in SOD CHLORIDE 0.9% 100 ML IVPB SCH (13:21)
[2017-06-01] MEDS: MEROPENEM 1 GM/50ML(PMX) 50 ML IVPB SCH ×2 (14:51→22:56)
--- NOTE | 2017-06-01 17:26 | CONS ---
Date/Time of Note Date/Time of Note DATE: 06/01/17 TIME: 17:24 Consult Date/Type/Reason Admit Date/Time May 29, 2017 at 21:56 Initial Consult Date 05/30/17 Type of Consultation: Pulmonary Subjective Hematuria noted overnight Objective Vital Signs Date Time Temp Pulse Resp B/P Pulse Ox O2 Delivery O2 Flow Rate FiO2 06/01/17 16:48 97 06/01/17 15:43 98.6 23 114/55 99 06/01/17 15:11 30 05/29/17 22:06 Mechanical Ventilator Trach Collar Intake and Output 05/31/17 05/31/17 06/01/17 15:00 23:00 07:00 Intake Total 1460 ml 1700 ml Output Total 1200 ml 1400 ml Balance 260 ml 300 ml Exam HEENT: Neck supple; no JVD; no LAD; trach clean CVS: RRR, S1 and S2 CHEST: Clear ABD: Soft, NT, + BS EXT: No c/c/e Results/Medications Result Diagram: 06/01/17 0604 06/01/17 0604 Results 24 hrs Laboratory Tests Test 05/31/17 18:12 05/31/17 22:07 06/01/17 00:38 06/01/17 05:38 Bedside Glucose 117 117 115 97 Test 06/01/17 06:04 06/01/17 11:28 White Blood Count 11.4 #H Red Blood Count 4.36 L Hemoglobin 9.9 L Hematocrit 31.7 L Mean Corpuscular Volume 72.7 L Mean Corpuscular Hemoglobin 22.7 L Mean Corpuscular Hemoglobin Concent 31.2 L Red Cell Distribution Width 15.7 H Platelet Count 172 Mean Platelet Volume 11.1 H Neutrophils % 81.3 H Lymphocytes % 10.0 L Monocytes % 7.3 Eosinophils % 0.7 Basophils % 0.2 Nucleated Red Blood Cells % 0.0 Neutrophils # 9.2 H Lymphocytes # 1.1 Monocytes # 0.8 Eosinophils # 0.1 Basophils # 0.0 Nucleated Red Blood Cells # 0.0 Sodium Level 142 Potassium Level 3.1 L Chloride Level 111 H Carbon Dioxide Level 23 Anion Gap 11 Blood Urea Nitrogen 20 Creatinine 0.62 Glucose Level 94 Calcium Level 8.3 L Phosphorus Level 2.6 Magnesium Level 2.2 Bedside Glucose 121 Medications Current Medications Hydromorphone HCl (Dilaudid) 1.5 mg ONCE PRN IV PAIN Last administered on 02:24; Admin Dose 1.5 MG; Start 05/30/17 at 02:07 Lorazepam (Ativan) 2 mg Q6H PRN PO SEIZURES Last administered on 05/30/17 09: 40; Admin Dose 2 MG; Start 05/30/17 at 02:30 Ondansetron HCl (Zofran Inj) 4 mg Q6H PRN IV NAUSEA AND/OR VOMITING; Start at 03:00 Acetaminophen (Tylenol Tab) 650 mg Q6H PRN PO PAIN LEVEL 1-3 OR FEVER Last administered on 05/31/17 09:46; Admin Dose 650 MG; Start 05/30/17 at 03:00 Acetaminophen (Tylenol Tab) 1,000 mg Q6H PRN PO PAIN LEVEL 6-10; Start at 03:00 Ascorbic Acid (Vitamin C) 500 mg DAILY PO Last administered on 06/01/17 09:12 ; Admin Dose 500 MG; Start 05/30/17 at 09:00 Baclofen (Lioresal) 10 mg TID PO Last administered on 06/01/17 13:21; Admin Dose 10 MG; Start 05/30/17 at 09:00 Bisacodyl (Dulcolax Supp) 10 mg DAILY [place] ; Start 05/30/17 at 09:00 Docusate Sodium (Colace Liquid Cup) 200 mg DAILY PO Last administered on 09:11; Admin Dose 200 MG; Start 05/30/17 at 09:00 Insulin Glargine (Lantus) 8 unit QHS SC Last administered on 06/01/17 01:04; Admin Dose 8 UNIT; Start 05/30/17 at 21:00 Multivitamins Therapeutic (Theragran) 1 tab DAILY PO Last administered on 09:12; Admin Dose 1 TAB; Start 05/30/17 at 09:00 Phenobarbital (Luminal) 64.8 mg BID PO Last administered on 06/01/17 09:12; Admin Dose 64.8 MG; Start 05/30/17 at 09:00 Polyethylene Glycol (Miralax) 17 gm DAILY PO Last administered on 06/01/17 09: 12; Admin Dose 17 GM; Start 05/30/17 at 09:00 Senna (Senokot (Ped)) 5 ml BID PO Last administered on 06/01/17 09:12; Admin Dose 5 ML; Start 05/30/17 at 09:00 Miscellaneous Information 1 ea NOTE XX ; Start 05/30/17 at 07:30 Glucose (Glutose) 15 gm Q15M PRN PO DECREASED GLUCOSE; Start 05/30/17 at 07:30 Glucose (Glutose) 22.5 gm Q15M PRN PO DECREASED GLUCOSE; Start 05/30/17 at 07: 30 Dextrose (D50w Syringe) 25 ml Q15M PRN IV DECREASED GLUCOSE; Start 05/30/17 at 07:30 Dextrose (D50w Syringe) 50 ml Q15M PRN IV DECREASED GLUCOSE; Start 05/30/17 at 07:30 Glucagon (Glucagen) 1 mg Q15M PRN IM DECREASED GLUCOSE; Start 05/30/17 at 07:30 Glucose 15 gm 15 gm Q15M PRN BUCCAL DECREASED GLUCOSE; Start 05/30/17 at 07:30 Sodium Chloride (1/2 NS) 1,000 ml @ 75 mls/hr [id number] IV Last administered on 06/01/17 09:13; Admin Dose 75 MLS/HR; Start 05/30/17 at 12:00 Lorazepam (Ativan) 1 mg Q1H PRN IV SEIZURES; Start 05/30/17 at 15:00 IV Flush (NS 10 ml) 10 ml PRN PRN IV IV PROTOCOL; Start 05/30/17 at 18:30 Insulin Aspart (Novolog Insulin Pen) NOVOLOG *MILD* ALGORI... Q6 SC Last administered on 05/31/17 11:43; Admin Dose 1 UNIT; Start 05/31/17 at 00:00 Metoprolol Tartrate (Lopressor) 25 mg BID PO Last administered on 05/31/17 21: 00; Admin Dose 25 MG; Start 05/31/17 at 09:00 Fish Oil 1000 mg 1,000 mg TID PO Last administered on 06/01/17 13:21; Admin Dose 1,000 MG; Start 05/31/17 at 10:00 Meropenem/Sodium Chloride 50 ml @ 100 mls/hr Q8 IVPB Last administered on 06/01 14:51; Admin Dose 100 MLS/HR; Start 06/01/17 at 14:00 Ferric Sodium Gluconate Complex 125 mg/Sodium Chloride 110 ml @ 100 mls/hr Q24H IVPB Last administered on 06/01/17 13:21; Admin Dose 100 MLS/HR; Start at 13:00; Stop 06/03/17 at 14:05 Potassium Chloride (KCl 40 MEQ/250 ML NS) 250 ml @ 62.5 mls/hr Q4H IVPB Last administered on 06/01/17 16:26; Admin Dose 62.5 MLS/HR; Start 06/01/17 at 11:30 ; Stop 06/01/17 at 19:29 Morphine Sulfate (morphine) 2 mg Q4H PRN IV breakthrough pain Last administered on 06/01/17 13:22; Admin Dose 2 MG; Start 06/01/17 at 12:00 Acetaminophen/ Hydrocodone Bitart ([place] (7.5-325)) 1 tab Q4H PRN PO PAIN LEVEL 8-10; Start 06/01/17 at 11:30 Assessment/Plan Additional Assessment/Plan IMP: 1. Urosepsis 2. VDRF 3. PVS RECS: 1. Abx per ID 2. Vent support 3. check H/H 4. replete BRIANDA Danielle MD Jun 01, 2017 17:25
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
[2017-06-02] VITALS (24 sets, daily range): BP systolic 104–136; BP diastolic 62–81; PULSE 84–93; RESP 14–20
[2017-06-02] MEDS: IPRATROPIUM (HFA) 12.9 GM INHALER INH SCH ×4 (03:31→20:19)
[2017-06-02] MEDS: ALBUTEROL 18 GM INHALER INH SCH ×4 (03:31→20:19)
[2017-06-02] MEDS: INSULIN ASPART [NOVOLOG] 3 ML PEN SC SCH ×4 (06:00→18:00)
[2017-06-02] MEDS: SOD CHLORIDE 0.45% 1,000 ML IV SCH (06:03)
[2017-06-02] MEDS: MEROPENEM 1 GM/50ML(PMX) 50 ML IVPB SCH ×2 (06:03→12:47)
[2017-06-02 07:25] LABS: BASOPHILS % 0.1 % (0.0-2.0); EOSINOPHILS # 0.1 10^3/ul (0.0-0.5); EOSINOPHILS % 1.4 % (0.0-7.0); HEMATOCRIT 30.5 % (42.0-52.0); HEMOGLOBIN 9.2 g/dl (14.0-18.0); LYMPHOCYTES # 1.3 10^3/ul (0.8-2.9); LYMPHOCYTES % 14.8 % (15.0-51.0); MEAN CORPUSCULAR HEMOGLOBIN 21.9 pg (29.0-33.0); MEAN CORPUSCULAR HGB CONC 30.2 g/dl (32.0-37.0); MEAN CORPUSCULAR VOLUME 72.4 fl (82.0-101.0); MEAN PLATELET VOLUME 11.1 fl (7.4-10.4); MONOCYTE # 0.7 10^3/ul (0.3-0.9); MONOCYTES % 7.8 % (0.0-11.0); NEUTROPHIL # 6.9 10^3/ul (1.6-7.5); NEUTROPHILS % 75.5 % (39.0-77.0); PLATELET COUNT 167 10^3/UL (140-415); RED BLOOD COUNT 4.21 10^6/ul (4.70-6.10); RED CELL DISTRIBUTION WIDTH 16.1 % (11.5-14.5); WHITE BLOOD COUNT 9.1 10^3/ul (4.8-10.8)
[2017-06-02 07:58] LABS: CALCIUM 8.5 mg/dl (8.4-10.2); CREATININE 0.48 mg/dl (0.61-1.24); POTASSIUM 3.7 mmol/L (3.5-5.1)
[2017-06-02] MEDS: METOPROLOL 25 MG TAB PO SCH ×2 (09:00→22:56)
[2017-06-02] MEDS: POLYETHYLENE GLYCOL 17 GM PACKET PO SCH (09:41)
[2017-06-02] MEDS: SENNA (PO SYG) PO SCH (09:42)
[2017-06-02] MEDS: DOCUSATE SODIUM 10 MG/ML (10ML CUP) PO SCH (09:42)
[2017-06-02] MEDS: BISACODYL 10 MG SUPP PR SCH (09:43)
[2017-06-02] MEDS: ASCORBIC ACID 500 MG TAB PO SCH (09:43)
[2017-06-02] MEDS: MULTIVITAMINS THERAPEUTIC TAB PO SCH (09:43)
[2017-06-02] MEDS: FISH OIL 1,000 MG CAP PO SCH ×3 (09:43→22:55)
[2017-06-02] MEDS: PHENOBARBITAL 32.4 MG TAB PO SCH ×2 (09:43→22:56)
[2017-06-02] MEDS: BACLOFEN 10 MG TAB PO SCH ×3 (09:43→22:55)
--- NOTE | 2017-06-02 11:18 | CONS ---
Date/Time of Note Date/Time of Note DATE: 06/02/17 TIME: 11:16 Assessment/Plan Assessment/Plan Additional Assessment/Plan Ventilator setting; AC of 14, tidal volume 600, PEEP of 5, 30% FiO2. Assessment and recommendations; 1. Patient admitted with UTI and sepsis clinically improving. 2. Chronic respiratory failure due to severe anoxic brain injury. Continue current treatment. Consultation Date/Type/Reason Admit Date/Time May 29, 2017 at 21:56 Initial Consult Date 05/30/17 Type of Consultation: Pulmonary 24 HR Interval Summary Free Text/Dictation Patient condition stable. Remains unresponsive due to anoxic brain injury. Also remains chronically ventilator dependent. General exam; young male, on ventilator via tracheostomy unresponsive, currently in no distress. Exam/Review of Systems Vital Signs Vitals Vital Signs Date Time Temp Pulse Resp B/P Pulse Ox O2 Delivery O2 Flow Rate FiO2 06/02/17 09:10 87 15 99 30 06/02/17 07:09 98.2 104/62 05/29/17 22:06 Mechanical Ventilator Trach Collar Intake and Output 06/01/17 06/01/17 06/02/17 15:00 23:00 07:00 Intake Total 1500 ml 1600 ml Output Total 1250 ml 2000 ml Balance 250 ml -400 ml Exam HEENT exam; supple neck, no JVD. No lymphadenopathy. Midline trachea. No thyromegaly. Tracheostomy. Chest exam; clear to auscultation. S1-S2 audible, no murmurs. Regular rhythm. Abdomen exam; soft, no organomegaly. G-tube in place. Bowel sounds audible. Extremity exam; no peripheral edema. 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 Results Result Diagram: 06/02/17 0612 06/02/17 0612 Results 24 hrs Laboratory Tests Test 06/01/17 11:28 06/01/17 18:06 06/02/17 00:50 06/02/17 06:12 Bedside Glucose 121 92 93 93 White Blood Count 9.1 # Red Blood Count 4.21 L Hemoglobin 9.2 L Hematocrit 30.5 L Mean Corpuscular Volume 72.4 L Mean Corpuscular Hemoglobin 21.9 L Mean Corpuscular Hemoglobin Concent 30.2 L Red Cell Distribution Width 16.1 H Platelet Count 167 Mean Platelet Volume 11.1 H Neutrophils % 75.5 Lymphocytes % 14.8 L Monocytes % 7.8 Eosinophils % 1.4 Basophils % 0.1 Nucleated Red Blood Cells % 0.0 Neutrophils # 6.9 Lymphocytes # 1.3 Monocytes # 0.7 Eosinophils # 0.1 Basophils # 0.0 Nucleated Red Blood Cells # 0.0 Sodium Level 142 Potassium Level 3.7 Chloride Level 110 Carbon Dioxide Level 26 Anion Gap 10 Blood Urea Nitrogen 15 Creatinine 0.48 L Glucose Level 93 Calcium Level 8.5 Medications Medications Current Medications Hydromorphone HCl (Dilaudid) 1.5 mg ONCE PRN IV PAIN Last administered on 02:24; Admin Dose 1.5 MG; Start 05/30/17 at 02:07 Lorazepam (Ativan) 2 mg Q6H PRN PO SEIZURES Last administered on 05/30/17 09: 40; Admin Dose 2 MG; Start 05/30/17 at 02:30 Ondansetron HCl (Zofran Inj) 4 mg Q6H PRN IV NAUSEA AND/OR VOMITING; Start at 03:00 Acetaminophen (Tylenol Tab) 650 mg Q6H PRN PO PAIN LEVEL 1-3 OR FEVER Last administered on 05/31/17 09:46; Admin Dose 650 MG; Start 05/30/17 at 03:00 Acetaminophen (Tylenol Tab) 1,000 mg Q6H PRN PO PAIN LEVEL 6-10; Start at 03:00 Ascorbic Acid (Vitamin C) 500 mg DAILY PO Last administered on 06/02/17 09:43 ; Admin Dose 500 MG; Start 05/30/17 at 09:00 Baclofen (Lioresal) 10 mg TID PO Last administered on 06/02/17 09:43; Admin Dose 10 MG; Start 05/30/17 at 09:00 Bisacodyl (Dulcolax Supp) 10 mg DAILY [place] Last administered on 06/02/17 09:43; Admin Dose 10 MG; Start 05/30/17 at 09:00 Docusate Sodium (Colace Liquid Cup) 200 mg DAILY PO Last administered on 09:42; Admin Dose 200 MG; Start 05/30/17 at 09:00 Insulin Glargine (Lantus) 8 unit QHS SC Last administered on 06/01/17 22:57; Admin Dose 8 UNIT; Start 05/30/17 at 21:00 Multivitamins Therapeutic (Theragran) 1 tab DAILY PO Last administered on 09:43; Admin Dose 1 TAB; Start 05/30/17 at 09:00 Phenobarbital (Luminal) 64.8 mg BID PO Last administered on 06/02/17 09:43; Admin Dose 64.8 MG; Start 05/30/17 at 09:00 Polyethylene Glycol (Miralax) 17 gm DAILY PO Last administered on 06/02/17 09: 41; Admin Dose 17 GM; Start 05/30/17 at 09:00 Senna (Senokot (Ped)) 5 ml BID PO Last administered on 06/02/17 09:42; Admin Dose 5 ML; Start 05/30/17 at 09:00 Miscellaneous Information 1 ea NOTE XX ; Start 05/30/17 at 07:30 Glucose (Glutose) 15 gm Q15M PRN PO DECREASED GLUCOSE; Start 05/30/17 at 07:30 Glucose (Glutose) 22.5 gm Q15M PRN PO DECREASED GLUCOSE; Start 05/30/17 at 07: 30 Dextrose (D50w Syringe) 25 ml Q15M PRN IV DECREASED GLUCOSE; Start 05/30/17 at 07:30 Dextrose (D50w Syringe) 50 ml Q15M PRN IV DECREASED GLUCOSE; Start 05/30/17 at 07:30 Glucagon (Glucagen) 1 mg Q15M PRN IM DECREASED GLUCOSE; Start 05/30/17 at 07:30 Glucose 15 gm 15 gm Q15M PRN BUCCAL DECREASED GLUCOSE; Start 05/30/17 at 07:30 Sodium Chloride (1/2 NS) 1,000 ml @ 75 mls/hr [id number] IV Last administered on 06/02/17 06:03; Admin Dose 75 MLS/HR; Start 05/30/17 at 12:00 Lorazepam (Ativan) 1 mg Q1H PRN IV SEIZURES; Start 05/30/17 at 15:00 IV Flush (NS 10 ml) 10 ml PRN PRN IV IV PROTOCOL; Start 05/30/17 at 18:30 Insulin Aspart (Novolog Insulin Pen) NOVOLOG *MILD* ALGORI... Q6 SC Last administered on 05/31/17 11:43; Admin Dose 1 UNIT; Start 05/31/17 at 00:00 Metoprolol Tartrate (Lopressor) 25 mg BID PO Last administered on 06/01/17 21: 28; Admin Dose 25 MG; Start 05/31/17 at 09:00 Fish Oil 1000 mg 1,000 mg TID PO Last administered on 06/02/17 09:43; Admin Dose 1,000 MG; Start 05/31/17 at 10:00 Meropenem/Sodium Chloride 50 ml @ 100 mls/hr Q8 IVPB Last administered on 06/02 06:03; Admin Dose 100 MLS/HR; Start 06/01/17 at 14:00 Ferric Sodium Gluconate Complex/ Sodium Chloride ([place]cit/NS) 110 ml @ 100 mls/hr Q24H IVPB Last administered on 06/01/17 13:21; Admin Dose 100 MLS/HR; Start 06/01/17 at 13:00; Stop 06/03/17 at 14:05 Morphine Sulfate (morphine) 2 mg Q4H PRN IV breakthrough pain Last administered on 06/01/17 13:22; Admin Dose 2 MG; Start 06/01/17 at 12:00 Acetaminophen/ Hydrocodone Bitart ([place] (7.5-325)) 1 tab Q4H PRN PO PAIN LEVEL 8-10; Start 06/01/17 at 11:30 DONOVAN NULL Jun 02, 2017 11:18
[2017-06-02] MEDS: SOD FERRIC GLUC COMPLX 125 MG in SOD CHLORIDE 0.9% 100 ML IVPB SCH (12:47)
[2017-06-02] MEDS: ERTAPENEM SODIUM 1 GM in SOD CHLORIDE 0.9% 100 ML IVPB SCH (17:35)
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
--- NOTE | 2017-06-02 18:44 | PN ---
DATE: 06/02/2017 SUBJECTIVE DATA: No acute changes. Patient is nonverbal, noncommunicative, lying comfortably in bed. He is afebrile. LABORATORY AND DIAGNOSTIC DATA: WBC today 9.1, no shift, no bands. BUN 15, creatinine 0.48. MICROBIOLOGY: Blood and urine culture growing E coli, ESBL. ANTIMICROBIALS: Patient is on meropenem. INDWELLINGS: Trach, PEG, suprapubic catheter, peripheral IV, PICC line. OBJECTIVE DATA: GENERAL: Chronically ill-appearing, middle-aged man, who is in persistent vegetative state. HEENT: Head atraumatic, normocephalic. Sclerae anicteric. NECK: Obese. CHEST: Rise symmetrical. Breath sounds diminished at the bases. HEART: S1, S2. ABDOMEN: Soft, bowel sounds present. EXTREMITIES: With bilateral edema. ASSESSMENT: 1. Sepsis with Escherichia coli extended-spectrum beta- lactamase bacteremia secondary to number 2. 2. Escherichia coli extended-spectrum beta-lactamase urinary tract infection. 3. Chronic respiratory failure. 4. Anoxic brain injury. 5. Diabetes. PLAN: Patient remains stable. We are going to change meropenem to Invanz. Repeat blood cultures. Anticipate complete treatment with antibiotics for 2 weeks. Dictated By: Chau Swartz NP /[email or web address]/chet /Document#: [id number]
[2017-06-02] MEDS: INSULIN GLARGINE [LANtus] 3 ML PEN SC SCH (23:09)
[2017-06-03] VITALS (23 sets, daily range): BP systolic 123–155; BP diastolic 66–87; PULSE 77–85; RESP 14–20
[2017-06-03] MEDS: IPRATROPIUM (HFA) 12.9 GM INHALER INH SCH ×4 (02:00→20:47)
[2017-06-03] MEDS: ALBUTEROL 18 GM INHALER INH SCH ×4 (02:00→20:47)
[2017-06-03] MEDS: INSULIN ASPART [NOVOLOG] 3 ML PEN SC SCH ×5 (06:00→23:35)
[2017-06-03] MEDS: SENNA (PO SYG) PO SCH ×2 (06:50→08:52)
[2017-06-03 07:35] LABS: BASOPHILS % 0.4 % (0.0-2.0); EOSINOPHILS # 0.1 10^3/ul (0.0-0.5); EOSINOPHILS % 1.5 % (0.0-7.0); HEMATOCRIT 29.3 % (42.0-52.0); LYMPHOCYTES # 1.6 10^3/ul (0.8-2.9); LYMPHOCYTES % 19.6 % (15.0-51.0); MEAN CORPUSCULAR HEMOGLOBIN 21.9 pg (29.0-33.0); MEAN CORPUSCULAR HGB CONC 30.7 g/dl (32.0-37.0); MEAN CORPUSCULAR VOLUME 71.3 fl (82.0-101.0); MEAN PLATELET VOLUME 11.1 fl (7.4-10.4); MONOCYTE # 0.8 10^3/ul (0.3-0.9); MONOCYTES % 9.8 % (0.0-11.0); NEUTROPHIL # 5.6 10^3/ul (1.6-7.5); PLATELET COUNT 191 10^3/UL (140-415); RED BLOOD COUNT 4.11 10^6/ul (4.70-6.10); RED CELL DISTRIBUTION WIDTH 15.8 % (11.5-14.5); WHITE BLOOD COUNT 8.3 10^3/ul (4.8-10.8)
[2017-06-03 08:07] LABS: CALCIUM 8.6 mg/dl (8.4-10.2); CREATININE 0.47 mg/dl (0.61-1.24); POTASSIUM 3.7 mmol/L (3.5-5.1)
[2017-06-03] MEDS: DOCUSATE SODIUM 10 MG/ML (10ML CUP) PO SCH (08:40)
[2017-06-03] MEDS: BACLOFEN 10 MG TAB PO SCH ×2 (08:40→12:46)
[2017-06-03] MEDS: ASCORBIC ACID 500 MG TAB PO SCH (08:41)
[2017-06-03] MEDS: METOPROLOL 25 MG TAB PO SCH (08:42)
[2017-06-03] MEDS: BISACODYL 10 MG SUPP PR SCH (08:43)
[2017-06-03] MEDS: POLYETHYLENE GLYCOL 17 GM PACKET PO SCH (08:43)
[2017-06-03] MEDS: MULTIVITAMINS THERAPEUTIC TAB PO SCH (08:43)
[2017-06-03] MEDS: FISH OIL 1,000 MG CAP PO SCH ×3 (08:43→21:00)
[2017-06-03] MEDS: PHENOBARBITAL 32.4 MG TAB PO SCH (08:52)
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
--- NOTE | 2017-06-03 11:56 | CONS ---
Date/Time of Note Date/Time of Note DATE: 06/03/17 TIME: 11:54 Assessment/Plan Assessment/Plan Additional Assessment/Plan Data setting; AC of 14, tidal volume 600, PEEP of 5, 30% FiO2. Assessment and recommendations; 1. Patient admitted with sepsis due to UTI with a history of severe anoxic brain injury requiring chronic ventilator support. Continue current treatment. Consider discharge. Consultation Date/Type/Reason Admit Date/Time May 29, 2017 at 21:56 Initial Consult Date 05/30/17 Type of Consultation: Pulmonary 24 HR Interval Summary Free Text/Dictation Patient's condition remains stable. Has remained hemodynamically stable. No untoward events reported. General exam; young male, on ventilator via tracheostomy. Currently in no distress. Unresponsive. Exam/Review of Systems Vital Signs Vitals Vital Signs Date Time Temp Pulse Resp B/P Pulse Ox O2 Delivery O2 Flow Rate FiO2 06/03/17 11:31 100.0 83 17 137/87 100 06/03/17 11:05 30 Intake and Output 06/02/17 06/02/17 06/03/17 15:00 23:00 07:00 Intake Total 50 ml 1200 ml Output Total 1200 ml Balance 50 ml 0 ml Exam HEENT exam; supple neck, no JVD. No lymphadenopathy. Midline trachea. No thyromegaly. Tracheostomy in place. Insertion site is clean. Patient has fair dentition. Multiple well-healed cranial scars are present. Chest exam; clear to auscultation. S1-S2 audible, no murmurs. Regular rhythm. Abdomen exam; soft, no organomegaly. Bowel sounds audible. G-tube in place. Extremity exam; no edema. [employer] exam; patient remains unresponsive. Results Result Diagram: 06/03/17 0646 06/03/17 0646 Results 24 hrs Laboratory Tests Test 06/02/17 18:15 06/02/17 22:52 06/03/17 01:06 06/03/17 06:42 Bedside Glucose 109 95 105 105 Test 06/03/17 06:46 White Blood Count 8.3 Red Blood Count 4.11 L Hemoglobin 9.0 L Hematocrit 29.3 L Mean Corpuscular Volume 71.3 L Mean Corpuscular Hemoglobin 21.9 L Mean Corpuscular Hemoglobin Concent 30.7 L Red Cell Distribution Width 15.8 H Platelet Count 191 Mean Platelet Volume 11.1 H Neutrophils % 68.0 Lymphocytes % 19.6 Monocytes % 9.8 Eosinophils % 1.5 Basophils % 0.4 Nucleated Red Blood Cells % 0.0 Neutrophils # 5.6 Lymphocytes # 1.6 Monocytes # 0.8 Eosinophils # 0.1 Basophils # 0.0 Nucleated Red Blood Cells # 0.0 Sodium Level 141 Potassium Level 3.7 Chloride Level 106 Carbon Dioxide Level 28 Anion Gap 11 Blood Urea Nitrogen 12 Creatinine 0.47 L Glucose Level 95 Calcium Level 8.6 Medications Medications Current Medications Hydromorphone HCl (Dilaudid) 1.5 mg ONCE PRN IV PAIN Last administered on 02:24; Admin Dose 1.5 MG; Start 05/30/17 at 02:07 Lorazepam (Ativan) 2 mg Q6H PRN PO SEIZURES Last administered on 05/30/17 09: 40; Admin Dose 2 MG; Start 05/30/17 at 02:30 Ondansetron HCl (Zofran Inj) 4 mg Q6H PRN IV NAUSEA AND/OR VOMITING; Start at 03:00 Acetaminophen (Tylenol Tab) 650 mg Q6H PRN PO PAIN LEVEL 1-3 OR FEVER Last administered on 05/31/17 09:46; Admin Dose 650 MG; Start 05/30/17 at 03:00 Acetaminophen (Tylenol Tab) 1,000 mg Q6H PRN PO PAIN LEVEL 6-10; Start at 03:00 Ascorbic Acid (Vitamin C) 500 mg DAILY PO Last administered on 06/03/17 08:41 ; Admin Dose 500 MG; Start 05/30/17 at 09:00 Baclofen (Lioresal) 10 mg TID PO Last administered on 06/03/17 08:40; Admin Dose 10 MG; Start 05/30/17 at 09:00 Bisacodyl (Dulcolax Supp) 10 mg DAILY [place] Last administered on 06/03/17 08:43; Admin Dose 10 MG; Start 05/30/17 at 09:00 Docusate Sodium (Colace Liquid Cup) 200 mg DAILY PO Last administered on 08:40; Admin Dose 200 MG; Start 05/30/17 at 09:00 Insulin Glargine (Lantus) 8 unit QHS SC Last administered on 06/02/17 23:09; Admin Dose 8 UNIT; Start 05/30/17 at 21:00 Multivitamins Therapeutic (Theragran) 1 tab DAILY PO Last administered on 08:43; Admin Dose 1 TAB; Start 05/30/17 at 09:00 Phenobarbital (Luminal) 64.8 mg BID PO Last administered on 06/03/17 08:52; Admin Dose 64.8 MG; Start 05/30/17 at 09:00 Polyethylene Glycol (Miralax) 17 gm DAILY PO Last administered on 06/03/17 08: 43; Admin Dose 17 GM; Start 05/30/17 at 09:00 Senna (Senokot (Ped)) 5 ml BID PO Last administered on 06/03/17 08:52; Admin Dose 5 ML; Start 05/30/17 at 09:00 Miscellaneous Information 1 ea NOTE XX ; Start 05/30/17 at 07:30 Glucose (Glutose) 15 gm Q15M PRN PO DECREASED GLUCOSE; Start 05/30/17 at 07:30 Glucose (Glutose) 22.5 gm Q15M PRN PO DECREASED GLUCOSE; Start 05/30/17 at 07: 30 Dextrose (D50w Syringe) 25 ml Q15M PRN IV DECREASED GLUCOSE; Start 05/30/17 at 07:30 Dextrose (D50w Syringe) 50 ml Q15M PRN IV DECREASED GLUCOSE; Start 05/30/17 at 07:30 Glucagon (Glucagen) 1 mg Q15M PRN IM DECREASED GLUCOSE; Start 05/30/17 at 07:30 Glucose (Glutose) 15 gm Q15M PRN BUCCAL DECREASED GLUCOSE; Start 05/30/17 at 07 :30 Lorazepam (Ativan) 1 mg Q1H PRN IV SEIZURES; Start 05/30/17 at 15:00 IV Flush (NS 10 ml) 10 ml PRN PRN IV IV PROTOCOL; Start 05/30/17 at 18:30 Insulin Aspart (Novolog Insulin Pen) NOVOLOG *MILD* ALGORI... Q6 SC Last administered on 05/31/17 11:43; Admin Dose 1 UNIT; Start 05/31/17 at 00:00 Metoprolol Tartrate (Lopressor) 25 mg BID PO Last administered on 06/03/17 08: 42; Admin Dose 25 MG; Start 05/31/17 at 09:00 Fish Oil 1000 mg 1,000 mg TID PO Last administered on 06/02/17 22:55; Admin Dose 1,000 MG; Start 05/31/17 at 10:00 Ferric Sodium Gluconate Complex/ Sodium Chloride (Ferrlecit/NS) 110 ml @ 100 mls/hr Q24H IVPB Last administered on 06/02/17 12:47; Admin Dose 100 MLS/HR; Start 06/01/17 at 13:00; Stop 06/03/17 at 14:05 Morphine Sulfate (morphine) 2 mg Q4H PRN IV breakthrough pain Last administered on 06/01/17 13:22; Admin Dose 2 MG; Start 06/01/17 at 12:00 Acetaminophen/ Hydrocodone Bitart 1 tab 1 tab Q4H PRN PO PAIN LEVEL 8-10; Start 06/01/17 at 11:30 Ertapenem/Sodium Chloride (Invanz/NS) 100 ml @ 200 mls/hr Q24H IVPB Last administered on 06/02/17 17:35; Admin Dose 200 MLS/HR; Start 06/02/17 at 17:00 DONOVAN NULL Jun 03, 2017 11:56
[2017-06-03] MEDS: ACETAMINOPHEN 325 MG TAB PO PRN (12:46)
[2017-06-03] MEDS: SOD FERRIC GLUC COMPLX 125 MG in SOD CHLORIDE 0.9% 100 ML IVPB SCH (12:46)
--- NOTE | 2017-06-03 15:25 | CONS ---
Date/Time of Note Date/Time of Note DATE: 06/03/17 TIME: 15:24 Assessment/Plan Assessment/Plan Chief Complaint/Hosp Course SUBJECTIVE DATA: No acute changes. Patient is nonverbal, noncommunicative, lying comfortably in bed. He is afebrile. MICROBIOLOGY: Blood and urine culture since admission growing E coli, ESBL. ANTIMICROBIALS: Invanz INDWELLINGS: Trach, PEG, suprapubic catheter, peripheral IV, PICC line. OBJECTIVE DATA: GENERAL: Chronically ill-appearing, middle-aged man, who is in persistent vegetative state. HEENT: Head atraumatic, normocephalic. Sclerae anicteric. NECK: Obese. CHEST: Rise symmetrical. Breath sounds diminished at the bases. HEART: S1, S2. ABDOMEN: Soft, bowel sounds present. EXTREMITIES: With bilateral edema. ASSESSMENT: 1. Sepsis with Escherichia coli extended-spectrum beta- lactamase bacteremia secondary to number 2. 2. Escherichia coli extended-spectrum beta-lactamase urinary tract infection. 3. Chronic respiratory failure. 4. Anoxic brain injury. 5. Diabetes. PLAN: Patient remains stable. Continue abx to complete treatment for urosepsis , f/u repeat bld cx Problems: Consultation Date/Type/Reason Admit Date/Time May 29, 2017 at 21:56 Initial Consult Date 05/30/17 Type of Consultation: id Exam/Review of Systems Vital Signs Vitals Vital Signs Date Time Temp Pulse Resp B/P Pulse Ox O2 Delivery O2 Flow Rate FiO2 06/03/17 13:20 78 15 98 30 06/03/17 11:31 100.0 137/87 Intake and Output 06/02/17 06/02/17 06/03/17 15:00 23:00 07:00 Intake Total 50 ml 1200 ml Output Total 1200 ml Balance 50 ml 0 ml Results Result Diagram: 06/03/17 0646 06/03/17 0646 Results 24 hrs Laboratory Tests Test 06/02/17 18:15 06/02/17 22:52 06/03/17 01:06 06/03/17 06:42 Bedside Glucose 109 95 105 105 Test 06/03/17 06:46 06/03/17 12:48 White Blood Count 8.3 Red Blood Count 4.11 L Hemoglobin 9.0 L Hematocrit 29.3 L Mean Corpuscular Volume 71.3 L Mean Corpuscular Hemoglobin 21.9 L Mean Corpuscular Hemoglobin Concent 30.7 L Red Cell Distribution Width 15.8 H Platelet Count 191 Mean Platelet Volume 11.1 H Neutrophils % 68.0 Lymphocytes % 19.6 Monocytes % 9.8 Eosinophils % 1.5 Basophils % 0.4 Nucleated Red Blood Cells % 0.0 Neutrophils # 5.6 Lymphocytes # 1.6 Monocytes # 0.8 Eosinophils # 0.1 Basophils # 0.0 Nucleated Red Blood Cells # 0.0 Sodium Level 141 Potassium Level 3.7 Chloride Level 106 Carbon Dioxide Level 28 Anion Gap 11 Blood Urea Nitrogen 12 Creatinine 0.47 L Glucose Level 95 Calcium Level 8.6 Bedside Glucose 106 Medications Medications Current Medications Hydromorphone HCl (Dilaudid) 1.5 mg ONCE PRN IV PAIN Last administered on 02:24; Admin Dose 1.5 MG; Start 05/30/17 at 02:07 Lorazepam (Ativan) 2 mg Q6H PRN PO SEIZURES Last administered on 05/30/17 09: 40; Admin Dose 2 MG; Start 05/30/17 at 02:30 Ondansetron HCl (Zofran Inj) 4 mg Q6H PRN IV NAUSEA AND/OR VOMITING; Start at 03:00 Acetaminophen (Tylenol Tab) 650 mg Q6H PRN PO PAIN LEVEL 1-3 OR FEVER Last administered on 06/03/17 12:46; Admin Dose 650 MG; Start 05/30/17 at 03:00 Acetaminophen (Tylenol Tab) 1,000 mg Q6H PRN PO PAIN LEVEL 6-10; Start at 03:00 Ascorbic Acid (Vitamin C) 500 mg DAILY PO Last administered on 06/03/17 08:41 ; Admin Dose 500 MG; Start 05/30/17 at 09:00 Baclofen (Lioresal) 10 mg TID PO Last administered on 06/03/17 12:46; Admin Dose 10 MG; Start 05/30/17 at 09:00 Bisacodyl (Dulcolax Supp) 10 mg DAILY IN Last administered on 06/03/17 08:43; Admin Dose 10 MG; Start 05/30/17 at 09:00 Docusate Sodium (Colace Liquid Cup) 200 mg DAILY PO Last administered on 08:40; Admin Dose 200 MG; Start 05/30/17 at 09:00 Insulin Glargine (Lantus) 8 unit QHS SC Last administered on 06/02/17 23:09; Admin Dose 8 UNIT; Start 05/30/17 at 21:00 Multivitamins Therapeutic (Theragran) 1 tab DAILY PO Last administered on 08:43; Admin Dose 1 TAB; Start 05/30/17 at 09:00 Phenobarbital (Luminal) 64.8 mg BID PO Last administered on 06/03/17 08:52; Admin Dose 64.8 MG; Start 05/30/17 at 09:00 Polyethylene Glycol (Miralax) 17 gm DAILY PO Last administered on 06/03/17 08: 43; Admin Dose 17 GM; Start 05/30/17 at 09:00 Senna (Senokot (Ped)) 5 ml BID PO Last administered on 06/03/17 08:52; Admin Dose 5 ML; Start 05/30/17 at 09:00 Miscellaneous Information 1 ea NOTE XX ; Start 05/30/17 at 07:30 Glucose (Glutose) 15 gm Q15M PRN PO DECREASED GLUCOSE; Start 05/30/17 at 07:30 Glucose (Glutose) 22.5 gm Q15M PRN PO DECREASED GLUCOSE; Start 05/30/17 at 07: 30 Dextrose (D50w Syringe) 25 ml Q15M PRN IV DECREASED GLUCOSE; Start 05/30/17 at 07:30 Dextrose (D50w Syringe) 50 ml Q15M PRN IV DECREASED GLUCOSE; Start 05/30/17 at 07:30 Glucagon (Glucagen) 1 mg Q15M PRN IM DECREASED GLUCOSE; Start 05/30/17 at 07:30 Glucose (Glutose) 15 gm Q15M PRN BUCCAL DECREASED GLUCOSE; Start 05/30/17 at 07 :30 Lorazepam (Ativan) 1 mg Q1H PRN IV SEIZURES; Start 05/30/17 at 15:00 IV Flush (NS 10 ml) 10 ml PRN PRN IV IV PROTOCOL; Start 05/30/17 at 18:30 Insulin Aspart (Novolog Insulin Pen) NOVOLOG *MILD* ALGORI... Q6 SC Last administered on 05/31/17 11:43; Admin Dose 1 UNIT; Start 05/31/17 at 00:00 Metoprolol Tartrate (Lopressor) 25 mg BID PO Last administered on 06/03/17 08: 42; Admin Dose 25 MG; Start 05/31/17 at 09:00 Fish Oil (Fish Oil) 1,000 mg TID PO Last administered on 06/02/17 22:55; Admin Dose 1,000 MG; Start 05/31/17 at 10:00 Morphine Sulfate (morphine) 2 mg Q4H PRN IV breakthrough pain Last administered on 06/01/17 13:22; Admin Dose 2 MG; Start 06/01/17 at 12:00 Acetaminophen/ Hydrocodone Bitart 1 tab 1 tab Q4H PRN PO PAIN LEVEL 8-10; Start 06/01/17 at 11:30 Ertapenem/Sodium Chloride (Invanz/NS) 100 ml @ 200 mls/hr Q24H IVPB Last administered on 06/02/17 17:35; Admin Dose 200 MLS/HR; Start 06/02/17 at 17:00 MIKE TRACY NP Jun 03, 2017 15:25
[2017-06-03] MEDS: ERTAPENEM SODIUM 1 GM in SOD CHLORIDE 0.9% 100 ML IVPB SCH (18:21)
[2017-06-03] MEDS: SENNA (PO SYG) GTB SCH (21:00)
[2017-06-03] MEDS: INSULIN GLARGINE [LANtus] 3 ML PEN SC SCH (21:55)
[2017-06-03] MEDS ORDERED: METOPROLOL 25 MG TAB ONE (22:05)
[2017-06-03] MEDS ORDERED: BACLOFEN 10 MG TAB ONE (22:05)
[2017-06-03] MEDS: BACLOFEN 10 MG TAB GTB SCH (22:10)
[2017-06-03] MEDS: PHENOBARBITAL 32.4 MG TAB GTB SCH (22:11)
[2017-06-03] MEDS: METOPROLOL 25 MG TAB GTB SCH (22:12)
[2017-06-03] MEDS ORDERED: VANCOMYCIN IV PER PHARMACY XX SCH (23:00)
[2017-06-03] MEDS ORDERED: VANCOMYCIN 2 GM in SOD CHLORIDE 0.9% 500 ML IVPB ONE (23:00)
[2017-06-04] VITALS (25 sets, daily range): BP systolic 109–129; BP diastolic 66–80; PULSE 70–83; RESP 14–20
[2017-06-04] MEDS: ALBUTEROL 18 GM INHALER INH SCH ×4 (01:34→19:16)
[2017-06-04] MEDS: IPRATROPIUM (HFA) 12.9 GM INHALER INH SCH ×4 (01:34→19:16)
[2017-06-04] MEDS: INSULIN ASPART [NOVOLOG] 3 ML PEN SC SCH ×4 (05:48→23:28)
[2017-06-04] MEDS: VANCOMYCIN 1.5 GM in SOD CHLORIDE 0.9% 250 ML IVPB SCH ×3 (07:11→23:12)
[2017-06-04 08:16] LABS: BASOPHILS % 0.2 % (0.0-2.0); EOSINOPHILS # 0.1 10^3/ul (0.0-0.5); EOSINOPHILS % 1.4 % (0.0-7.0); HEMATOCRIT 29.7 % (42.0-52.0); HEMOGLOBIN 9.1 g/dl (14.0-18.0); LYMPHOCYTES # 1.7 10^3/ul (0.8-2.9); LYMPHOCYTES % 18.6 % (15.0-51.0); MEAN CORPUSCULAR HEMOGLOBIN 21.8 pg (29.0-33.0); MEAN CORPUSCULAR HGB CONC 30.6 g/dl (32.0-37.0); MEAN CORPUSCULAR VOLUME 71.2 fl (82.0-101.0); MEAN PLATELET VOLUME 11.1 fl (7.4-10.4); MONOCYTE # 0.8 10^3/ul (0.3-0.9); MONOCYTES % 8.1 % (0.0-11.0); NEUTROPHIL # 6.5 10^3/ul (1.6-7.5); NEUTROPHILS % 70.4 % (39.0-77.0); PLATELET COUNT 219 10^3/UL (140-415); RED BLOOD COUNT 4.17 10^6/ul (4.70-6.10); RED CELL DISTRIBUTION WIDTH 15.8 % (11.5-14.5); WHITE BLOOD COUNT 9.3 10^3/ul (4.8-10.8)
[2017-06-04] MEDS: DOCUSATE SODIUM 10 MG/ML (10ML CUP) PO SCH (08:19)
[2017-06-04] MEDS: SENNA (PO SYG) GTB SCH ×2 (08:20→20:19)
[2017-06-04] MEDS: ASCORBIC ACID 500 MG TAB PO SCH (08:20)
[2017-06-04] MEDS: PHENOBARBITAL 32.4 MG TAB GTB SCH ×2 (08:29→20:19)
[2017-06-04] MEDS: BACLOFEN 10 MG TAB GTB SCH ×3 (08:30→20:18)
[2017-06-04] MEDS: BISACODYL 10 MG SUPP PR SCH (08:31)
[2017-06-04] MEDS: MULTIVITAMINS THERAPEUTIC TAB PO SCH (08:31)
[2017-06-04] MEDS: METOPROLOL 25 MG TAB GTB SCH ×2 (08:31→20:19)
[2017-06-04] MEDS: FISH OIL 1,000 MG CAP PO SCH ×3 (08:31→20:20)
[2017-06-04] MEDS: POLYETHYLENE GLYCOL 17 GM PACKET PO SCH (08:32)
[2017-06-04 08:41] LABS: CALCIUM 8.5 mg/dl (8.4-10.2); CREATININE 0.41 mg/dl (0.61-1.24); POTASSIUM 3.7 mmol/L (3.5-5.1)
[2017-06-04] MEDS ORDERED: SENNA (PO SYG) GTB SCH (09:00)
[2017-06-04] MEDS ORDERED: BACLOFEN 10 MG TAB GTB SCH (09:00)
[2017-06-04] MEDS ORDERED: PHENOBARBITAL 32.4 MG TAB GTB SCH (09:00)
[2017-06-04] MEDS ORDERED: METOPROLOL 25 MG TAB GTB SCH (09:00)
--- NOTE | 2017-06-04 12:09 | RADRPT ---
PROCEDURE: US upper extremity Venous. CLINICAL INDICATION: Upper extremity swelling TECHNIQUE: Multiple sonographic images of the bilateral upper extremity venous system was obtained utilizing sun scale, color-flow, compressive sonography and doppler imaging with augmentation. COMPARISON: Chest 05/30/2017 FINDINGS: Catheter within the left internal jugular vein. Catheter within the right basilic vein. Nonocclusive thrombus in the left subclavian vein. Normal compressibility and flow demonstrated with in the bilateral internal jugular veins, right subclavian vein, bilateral axillary and brachial vein s.. Normal compressibility of the basilic and cephalic veins. IMPRESSION: Nonocclusive thrombus in the left subclavian vein. Results called to the patient's nurse, Francheska at 06/04/2017 12:03:13 PM. RPTAT:AAJJ Physician Shaylee Date Time Electronically viewed and signed by Physician Shaylee on 06/04/2017 12:09 /
--- NOTE | 2017-06-04 12:11 | CONS ---
Date/Time of Note Date/Time of Note DATE: 06/04/17 TIME: 12:09 Assessment/Plan Assessment/Plan Chief Complaint/Hosp Course SUBJECTIVE DATA: No acute changes overnight patient is nonverbal and noncommunicative. T-max 99.9 pulse 79 respirations 16 blood pressure 111/66 saturation 100 on vent WBC 9.3 H&H 9.1 and 29.7 platelets 219 BUN 12 creatinine 0.41 Microbiology: Repeat blood culture growing staph species 1 out of 2 sets ANTIMICROBIALS: Invanz INDWELLINGS: Trach, PEG, suprapubic catheter, PICC line. OBJECTIVE DATA: GENERAL: Chronically ill-appearing, middle-aged man, who is in persistent vegetative state. HEENT: Head atraumatic, normocephalic. Sclerae anicteric. NECK: Obese. CHEST: Rise symmetrical. Breath sounds diminished at the bases. HEART: S1, S2. ABDOMEN: Soft, bowel sounds present. EXTREMITIES: With bilateral edema. ASSESSMENT: 1. Sepsis with Escherichia coli extended-spectrum beta- lactamase bacteremia secondary to number 2. 2. Escherichia coli extended-spectrum beta-lactamase urinary tract infection. 3. Chronic respiratory failure. 4. Anoxic brain injury. 5. Diabetes. PLAN: Patient remains stable. Repeat blood culture growing staph species likely contaminant, will repeat blood culture again today, will give her Vanco dose, continue abx to complete treatment for urosepsis Problems: Consultation Date/Type/Reason Admit Date/Time May 29, 2017 at 21:56 Initial Consult Date 05/30/17 Type of Consultation: id Exam/Review of Systems Vital Signs Vitals Vital Signs Date Time Temp Pulse Resp B/P Pulse Ox O2 Delivery O2 Flow Rate FiO2 06/04/17 11:30 99.9 79 16 111/66 100 06/04/17 05:17 30 Intake and Output 06/03/17 06/03/17 06/04/17 15:00 23:00 07:00 Intake Total 950 ml 1060 ml 900 ml Output Total 1000 ml 900 ml 2000 ml Balance -50 ml 160 ml -1100 ml Results Result Diagram: 06/04/17 0737 06/04/17 0737 Results 24 hrs Laboratory Tests Test 06/03/17 12:48 06/03/17 18:22 06/03/17 21:53 06/03/17 23:29 Bedside Glucose 106 100 99 103 Test 06/04/17 05:45 06/04/17 07:37 Bedside Glucose 122 White Blood Count 9.3 Red Blood Count 4.17 L Hemoglobin 9.1 L Hematocrit 29.7 L Mean Corpuscular Volume 71.2 L Mean Corpuscular Hemoglobin 21.8 L Mean Corpuscular Hemoglobin Concent 30.6 L Red Cell Distribution Width 15.8 H Platelet Count 219 Mean Platelet Volume 11.1 H Neutrophils % 70.4 Lymphocytes % 18.6 Monocytes % 8.1 Eosinophils % 1.4 Basophils % 0.2 Nucleated Red Blood Cells % 0.0 Neutrophils # 6.5 Lymphocytes # 1.7 Monocytes # 0.8 Eosinophils # 0.1 Basophils # 0.0 Nucleated Red Blood Cells # 0.0 Sodium Level 138 Potassium Level 3.7 Chloride Level 104 Carbon Dioxide Level 27 Anion Gap 11 Blood Urea Nitrogen 12 Creatinine 0.41 L Glucose Level 109 Calcium Level 8.5 Medications Medications Current Medications Hydromorphone HCl (Dilaudid) 1.5 mg ONCE PRN IV PAIN Last administered on 02:24; Admin Dose 1.5 MG; Start 05/30/17 at 02:07 Lorazepam (Ativan) 2 mg Q6H PRN PO SEIZURES Last administered on 05/30/17 09: 40; Admin Dose 2 MG; Start 05/30/17 at 02:30 Ondansetron HCl (Zofran Inj) 4 mg Q6H PRN IV NAUSEA AND/OR VOMITING; Start at 03:00 Acetaminophen (Tylenol Tab) 650 mg Q6H PRN PO PAIN LEVEL 1-3 OR FEVER Last administered on 06/03/17 12:46; Admin Dose 650 MG; Start 05/30/17 at 03:00 Acetaminophen (Tylenol Tab) 1,000 mg Q6H PRN PO PAIN LEVEL 6-10; Start at 03:00 Ascorbic Acid (Vitamin C) 500 mg DAILY PO Last administered on 06/04/17 08:20 ; Admin Dose 500 MG; Start 05/30/17 at 09:00 Bisacodyl (Dulcolax Supp) 10 mg DAILY [place] Last administered on 06/04/17 08:31; Admin Dose 10 MG; Start 05/30/17 at 09:00 Docusate Sodium (Colace Liquid Cup) 200 mg DAILY PO Last administered on 08:19; Admin Dose 200 MG; Start 05/30/17 at 09:00 Insulin Glargine (Lantus) 8 unit QHS SC Last administered on 06/03/17 21:55; Admin Dose 8 UNIT; Start 05/30/17 at 21:00 Multivitamins Therapeutic (Theragran) 1 tab DAILY PO Last administered on 08:31; Admin Dose 1 TAB; Start 05/30/17 at 09:00 Polyethylene Glycol (Miralax) 17 gm DAILY PO Last administered on 06/04/17 08: 32; Admin Dose 17 GM; Start 05/30/17 at 09:00 Miscellaneous Information 1 ea NOTE XX ; Start 05/30/17 at 07:30 Glucose (Glutose) 15 gm Q15M PRN PO DECREASED GLUCOSE; Start 05/30/17 at 07:30 Glucose (Glutose) 22.5 gm Q15M PRN PO DECREASED GLUCOSE; Start 05/30/17 at 07: 30 Dextrose (D50w Syringe) 25 ml Q15M PRN IV DECREASED GLUCOSE; Start 05/30/17 at 07:30 Dextrose (D50w Syringe) 50 ml Q15M PRN IV DECREASED GLUCOSE; Start 05/30/17 at 07:30 Glucagon (Glucagen) 1 mg Q15M PRN IM DECREASED GLUCOSE; Start 05/30/17 at 07:30 Glucose (Glutose) 15 gm Q15M PRN BUCCAL DECREASED GLUCOSE; Start 05/30/17 at 07 :30 Lorazepam (Ativan) 1 mg Q1H PRN IV SEIZURES; Start 05/30/17 at 15:00 IV Flush (NS 10 ml) 10 ml PRN PRN IV IV PROTOCOL; Start 05/30/17 at 18:30 Insulin Aspart (Novolog Insulin Pen) NOVOLOG *MILD* ALGORI... Q6 SC Last administered on 05/31/17 11:43; Admin Dose 1 UNIT; Start 05/31/17 at 00:00 Fish Oil (Fish Oil) 1,000 mg TID PO Last administered on 06/02/17 22:55; Admin Dose 1,000 MG; Start 05/31/17 at 10:00 Morphine Sulfate (morphine) 2 mg Q4H PRN IV breakthrough pain Last administered on 06/01/17 13:22; Admin Dose 2 MG; Start 06/01/17 at 12:00 Acetaminophen/ Hydrocodone Bitart 1 tab 1 tab Q4H PRN PO PAIN LEVEL 8-10; Start 06/01/17 at 11:30 Ertapenem/Sodium Chloride (Invanz/NS) 100 ml @ 200 mls/hr Q24H IVPB Last administered on 06/03/17 18:21; Admin Dose 200 MLS/HR; Start 06/02/17 at 17:00 Baclofen (Lioresal) 10 mg TID GTB Last administered on 06/04/17 08:30; Admin Dose 10 MG; Start 06/03/17 at 21:00 Metoprolol Tartrate (Lopressor) 25 mg BID GTB Last administered on 06/04/17 08 :31; Admin Dose 25 MG; Start 06/03/17 at 21:00 Phenobarbital (Luminal) 64.8 mg BID GTB Last administered on 06/04/17 08:29; Admin Dose 64.8 MG; Start 06/03/17 at 21:00 Senna 5 ml 5 ml BID GTB Last administered on 06/04/17 08:20; Admin Dose 5 ML; Start 06/03/17 at 21:00 Vancomycin HCl/ Sodium Chloride (Vancocin/NS) 250 ml @ 83.333 mls/ hr Q8H IVPB Last administered on 06/04/17 07:11; Admin Dose 83.333 MLS/HR; Start at 07:00 Miscellaneous Information (*Rx Drug Level Order Reminder*) VANCO TROUGH @ 2, 200 ON... ONCE ONCE XX ; Start 06/04/17 at 22:00; Stop 06/04/17 at 22:01 MIKE TRACY NP Jun 04, 2017 12:11
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
--- NOTE | 2017-06-04 12:51 | CONS ---
Date/Time of Note Date/Time of Note DATE: 06/04/17 TIME: 12:49 Assessment/Plan Assessment/Plan Additional Assessment/Plan Assessment and recommendations; 1. Patient admitted with sepsis due to UTI. Currently on appropriate antibiotic regimen. 2. Gram-negative septicemia. 3. Chronic respiratory failure. 4. Status post anoxic brain injury. 5. Stable seizure disorder. 6. History of hypertension and diabetes. 7. Left subclavian vein thrombosis. 8. Mild anemia. Continue current treatment. Add Lovenox for left subclavian vein DVT. Consultation Date/Type/Reason Admit Date/Time May 29, 2017 at 21:56 Initial Consult Date 05/30/17 Type of Consultation: Pulmonary 24 HR Interval Summary Free Text/Dictation Patient condition remains stable. Remains unresponsive due to anoxic brain injury. Also remains chronically ventilator dependent. General exam; young male, on ventilator via tracheostomy, unresponsive, currently in no distress. Exam/Review of Systems Vital Signs Vitals Vital Signs Date Time Temp Pulse Resp B/P Pulse Ox O2 Delivery O2 Flow Rate FiO2 06/04/17 11:30 99.9 79 16 111/66 100 06/04/17 05:17 30 Intake and Output 06/03/17 06/03/17 06/04/17 15:00 23:00 07:00 Intake Total 950 ml 1060 ml 900 ml Output Total 1000 ml 900 ml 2000 ml Balance -50 ml 160 ml -1100 ml Exam HEENT exam; supple neck, no JVD. No lymphadenopathy. Midline trachea. No thyromegaly. Tracheostomy in place. Patient has fair dentition. Multiple well -healed cranial scars are present. Chest exam; clear to auscultation. S1-S2 audible, no murmurs. Regular rhythm. Abdomen exam; soft, no organomegaly. G-tube in place. Bowel sounds audible. Extremity exam; no peripheral edema. [employer] exam; patient remains unresponsive. Results Result Diagram: 06/04/17 0737 06/04/17 0737 Results 24 hrs Laboratory Tests Test 06/03/17 18:22 06/03/17 21:53 06/03/17 23:29 06/04/17 05:45 Bedside Glucose 100 99 103 122 Test 06/04/17 07:37 06/04/17 12:36 White Blood Count 9.3 Red Blood Count 4.17 L Hemoglobin 9.1 L Hematocrit 29.7 L Mean Corpuscular Volume 71.2 L Mean Corpuscular Hemoglobin 21.8 L Mean Corpuscular Hemoglobin Concent 30.6 L Red Cell Distribution Width 15.8 H Platelet Count 219 Mean Platelet Volume 11.1 H Neutrophils % 70.4 Lymphocytes % 18.6 Monocytes % 8.1 Eosinophils % 1.4 Basophils % 0.2 Nucleated Red Blood Cells % 0.0 Neutrophils # 6.5 Lymphocytes # 1.7 Monocytes # 0.8 Eosinophils # 0.1 Basophils # 0.0 Nucleated Red Blood Cells # 0.0 Sodium Level 138 Potassium Level 3.7 Chloride Level 104 Carbon Dioxide Level 27 Anion Gap 11 Blood Urea Nitrogen 12 Creatinine 0.41 L Glucose Level 109 Calcium Level 8.5 Bedside Glucose 91 Medications Medications Current Medications Hydromorphone HCl (Dilaudid) 1.5 mg ONCE PRN IV PAIN Last administered on 02:24; Admin Dose 1.5 MG; Start 05/30/17 at 02:07 Lorazepam (Ativan) 2 mg Q6H PRN PO SEIZURES Last administered on 05/30/17 09: 40; Admin Dose 2 MG; Start 05/30/17 at 02:30 Ondansetron HCl (Zofran Inj) 4 mg Q6H PRN IV NAUSEA AND/OR VOMITING; Start at 03:00 Acetaminophen (Tylenol Tab) 650 mg Q6H PRN PO PAIN LEVEL 1-3 OR FEVER Last administered on 06/03/17 12:46; Admin Dose 650 MG; Start 05/30/17 at 03:00 Acetaminophen (Tylenol Tab) 1,000 mg Q6H PRN PO PAIN LEVEL 6-10; Start at 03:00 Ascorbic Acid (Vitamin C) 500 mg DAILY PO Last administered on 06/04/17 08:20 ; Admin Dose 500 MG; Start 05/30/17 at 09:00 Bisacodyl (Dulcolax Supp) 10 mg DAILY HI Last administered on 06/04/17 08:31; Admin Dose 10 MG; Start 05/30/17 at 09:00 Docusate Sodium (Colace Liquid Cup) 200 mg DAILY PO Last administered on 08:19; Admin Dose 200 MG; Start 05/30/17 at 09:00 Insulin Glargine (Lantus) 8 unit QHS SC Last administered on 06/03/17 21:55; Admin Dose 8 UNIT; Start 05/30/17 at 21:00 Multivitamins Therapeutic (Theragran) 1 tab DAILY PO Last administered on 08:31; Admin Dose 1 TAB; Start 05/30/17 at 09:00 Polyethylene Glycol (Miralax) 17 gm DAILY PO Last administered on 06/04/17 08: 32; Admin Dose 17 GM; Start 05/30/17 at 09:00 Miscellaneous Information 1 ea NOTE XX ; Start 05/30/17 at 07:30 Glucose (Glutose) 15 gm Q15M PRN PO DECREASED GLUCOSE; Start 05/30/17 at 07:30 Glucose (Glutose) 22.5 gm Q15M PRN PO DECREASED GLUCOSE; Start 05/30/17 at 07: 30 Dextrose (D50w Syringe) 25 ml Q15M PRN IV DECREASED GLUCOSE; Start 05/30/17 at 07:30 Dextrose (D50w Syringe) 50 ml Q15M PRN IV DECREASED GLUCOSE; Start 05/30/17 at 07:30 Glucagon (Glucagen) 1 mg Q15M PRN IM DECREASED GLUCOSE; Start 05/30/17 at 07:30 Glucose (Glutose) 15 gm Q15M PRN BUCCAL DECREASED GLUCOSE; Start 05/30/17 at 07 :30 Lorazepam (Ativan) 1 mg Q1H PRN IV SEIZURES; Start 05/30/17 at 15:00 IV Flush (NS 10 ml) 10 ml PRN PRN IV IV PROTOCOL; Start 05/30/17 at 18:30 Insulin Aspart (Novolog Insulin Pen) NOVOLOG *MILD* ALGORI... Q6 SC Last administered on 05/31/17 11:43; Admin Dose 1 UNIT; Start 05/31/17 at 00:00 Fish Oil (Fish Oil) 1,000 mg TID PO Last administered on 06/02/17 22:55; Admin Dose 1,000 MG; Start 05/31/17 at 10:00 Morphine Sulfate (morphine) 2 mg Q4H PRN IV breakthrough pain Last administered on 06/01/17 13:22; Admin Dose 2 MG; Start 06/01/17 at 12:00 Acetaminophen/ Hydrocodone Bitart 1 tab 1 tab Q4H PRN PO PAIN LEVEL 8-10; Start 06/01/17 at 11:30 Ertapenem/Sodium Chloride (Invanz/NS) 100 ml @ 200 mls/hr Q24H IVPB Last administered on 06/03/17 18:21; Admin Dose 200 MLS/HR; Start 06/02/17 at 17:00 Baclofen (Lioresal) 10 mg TID GTB Last administered on 06/04/17 12:35; Admin Dose 10 MG; Start 06/03/17 at 21:00 Metoprolol Tartrate (Lopressor) 25 mg BID GTB Last administered on 06/04/17 08 :31; Admin Dose 25 MG; Start 06/03/17 at 21:00 Phenobarbital (Luminal) 64.8 mg BID GTB Last administered on 06/04/17 08:29; Admin Dose 64.8 MG; Start 06/03/17 at 21:00 Senna 5 ml 5 ml BID GTB Last administered on 06/04/17 08:20; Admin Dose 5 ML; Start 06/03/17 at 21:00 Vancomycin HCl/ Sodium Chloride (Vancocin/NS) 250 ml @ 83.333 mls/ hr Q8H IVPB Last administered on 06/04/17 07:11; Admin Dose 83.333 MLS/HR; Start at 07:00 Miscellaneous Information (*Rx Drug Level Order Reminder*) VANCO TROUGH @ 2, 200 ON... ONCE ONCE XX ; Start 06/04/17 at 22:00; Stop 06/04/17 at 22:01 DONOVAN NULL Jun 04, 2017 12:51
[2017-06-04] MEDS: ENOXAPARIN 100 MG/ML SYG SC SCH (13:00)
[2017-06-04] MEDS: ERTAPENEM SODIUM 1 GM in SOD CHLORIDE 0.9% 100 ML IVPB SCH (17:01)
[2017-06-04] MEDS: BALSAM PERU/CASTOR OIL 60 GM TUBE TOP SCH (17:01)
[2017-06-04] MEDS: ACETAMINOPHEN 325 MG TAB PO PRN (17:05)
[2017-06-04] MEDS: INSULIN GLARGINE [LANtus] 3 ML PEN SC SCH (21:48)
[2017-06-05] VITALS (23 sets, daily range): BP systolic 122–156; BP diastolic 72–106; PULSE 70–79; RESP 14–20
[2017-06-05] MEDS: ALBUTEROL 18 GM INHALER INH SCH ×4 (01:17→19:32)
[2017-06-05] MEDS: IPRATROPIUM (HFA) 12.9 GM INHALER INH SCH ×4 (01:17→19:32)
[2017-06-05] MEDS: VANCOMYCIN 1.5 GM in SOD CHLORIDE 0.9% 250 ML IVPB SCH ×2 (05:32→17:56)
[2017-06-05] MEDS: INSULIN ASPART [NOVOLOG] 3 ML PEN SC SCH ×3 (05:35→17:40)
[2017-06-05] MEDS: FISH OIL 1,000 MG CAP PO SCH ×3 (09:00→21:44)
[2017-06-05] MEDS: BACLOFEN 10 MG TAB GTB SCH ×3 (09:10→21:44)
[2017-06-05] MEDS: ASCORBIC ACID 500 MG TAB PO SCH (09:10)
[2017-06-05] MEDS: DOCUSATE SODIUM 10 MG/ML (10ML CUP) PO SCH (09:10)
[2017-06-05] MEDS: POLYETHYLENE GLYCOL 17 GM PACKET PO SCH (09:11)
[2017-06-05] MEDS: SENNA (PO SYG) GTB SCH ×2 (09:11→21:47)
[2017-06-05] MEDS: MULTIVITAMINS THERAPEUTIC TAB PO SCH (09:11)
[2017-06-05] MEDS: LORAZEPAM 2 MG INJ IV PRN (09:11)
[2017-06-05] MEDS: METOPROLOL 25 MG TAB GTB SCH ×2 (09:12→21:46)
[2017-06-05] MEDS: BISACODYL 10 MG SUPP PR SCH (09:12)
[2017-06-05] MEDS: BALSAM PERU/CASTOR OIL 60 GM TUBE TOP SCH (09:12)
[2017-06-05] MEDS: PHENOBARBITAL 32.4 MG TAB GTB SCH ×2 (09:21→21:46)
[2017-06-05] MEDS ORDERED: hydrALAzine 20 MG INJ IV PRN (12:00)
[2017-06-05] MEDS ORDERED: LABETALOL HCL 20MG INJ IV PRN (12:00)
[2017-06-05] MEDS ORDERED: FENTAnyl 50 MCG/ML VIAL IV PRN ×2 (12:00)
[2017-06-05] MEDS ORDERED: EPHEDrine SULFATE 50 MG/5 ML SYG IV PRN (12:00)
[2017-06-05] MEDS: ENOXAPARIN 100 MG/ML SYG SC SCH (13:17)
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
--- NOTE | 2017-06-05 15:08 | CONS ---
Date/Time of Note Date/Time of Note DATE: 06/05/17 TIME: 15:06 Assessment/Plan Assessment/Plan Chief Complaint/Hosp Course SUBJECTIVE DATA: No acute changes patient is nonverbal, looks comfortable Temperature 98.2 pulse 75 respirations 19 blood pressure 122/77 saturation 95 on FiO2 of 30 Microbiology repeat blood culture on June 04 growing gram-negative rods Antimicrobials patient is on IV vancomycin and Invanz INDWELLINGS: Trach, PEG, suprapubic catheter, PICC line. OBJECTIVE DATA: GENERAL: Chronically ill-appearing, middle-aged man, who is in persistent vegetative state. HEENT: Head atraumatic, normocephalic. Sclerae anicteric. NECK: Obese. CHEST: Rise symmetrical. Breath sounds diminished at the bases. HEART: S1, S2. ABDOMEN: Soft, bowel sounds present. EXTREMITIES: With bilateral edema. ASSESSMENT: 1. Sepsis with Escherichia coli extended-spectrum beta- lactamase bacteremia secondary to number 2. 2. Escherichia coli extended-spectrum beta-lactamase urinary tract infection. 3. Chronic respiratory failure. 4. Anoxic brain injury. 5. Diabetes. 6. Left subclavian DVT PLAN: Nuclei unchanged still growing gram-negative rods, continue abx await for final cultures, follow urology recommendations, consider CT abdomen and pelvis with IV contrast Problems: Consultation Date/Type/Reason Admit Date/Time May 29, 2017 at 21:56 Initial Consult Date 05/30/17 Type of Consultation: ID Exam/Review of Systems Vital Signs Vitals Vital Signs Date Time Temp Pulse Resp B/P Pulse Ox O2 Delivery O2 Flow Rate FiO2 06/05/17 15:00 75 18 98 30 06/05/17 11:34 Intake and Output 06/04/17 06/04/17 06/05/17 15:00 23:00 07:00 Intake Total 960 ml 280 ml Output Total 1200 ml 800 ml Balance -240 ml -520 ml Results Result Diagram: 06/04/17 0737 06/04/17 0737 Results 24 hrs Laboratory Tests Test 06/04/17 17:06 06/04/17 20:26 06/04/17 22:14 06/04/17 23:23 Bedside Glucose 97 98 100 Vancomycin Level Trough 23.7 *H Test 06/05/17 05:33 06/05/17 12:23 Bedside Glucose 94 88 Medications Medications Current Medications Hydromorphone HCl (Dilaudid) 1.5 mg ONCE PRN IV PAIN Last administered on 02:24; Admin Dose 1.5 MG; Start 05/30/17 at 02:07 Lorazepam (Ativan) 2 mg Q6H PRN PO SEIZURES Last administered on 05/30/17 09: 40; Admin Dose 2 MG; Start 05/30/17 at 02:30 Ondansetron HCl (Zofran Inj) 4 mg Q6H PRN IV NAUSEA AND/OR VOMITING; Start at 03:00 Acetaminophen (Tylenol Tab) 650 mg Q6H PRN PO PAIN LEVEL 1-3 OR FEVER Last administered on 06/04/17 17:05; Admin Dose 650 MG; Start 05/30/17 at 03:00 Acetaminophen (Tylenol Tab) 1,000 mg Q6H PRN PO PAIN LEVEL 6-10; Start at 03:00 Ascorbic Acid (Vitamin C) 500 mg DAILY PO Last administered on 06/05/17 09:10 ; Admin Dose 500 MG; Start 05/30/17 at 09:00 Bisacodyl (Dulcolax Supp) 10 mg DAILY PA Last administered on 06/05/17 09:12; Admin Dose 10 MG; Start 05/30/17 at 09:00 Docusate Sodium (Colace Liquid Cup) 200 mg DAILY PO Last administered on 09:10; Admin Dose 200 MG; Start 05/30/17 at 09:00 Insulin Glargine (Lantus) 8 unit QHS SC Last administered on 06/04/17 21:48; Admin Dose 8 UNIT; Start 05/30/17 at 21:00 Multivitamins Therapeutic (Theragran) 1 tab DAILY PO Last administered on 09:11; Admin Dose 1 TAB; Start 05/30/17 at 09:00 Polyethylene Glycol (Miralax) 17 gm DAILY PO Last administered on 06/05/17 09: 11; Admin Dose 17 GM; Start 05/30/17 at 09:00 Miscellaneous Information 1 ea NOTE XX ; Start 05/30/17 at 07:30 Glucose (Glutose) 15 gm Q15M PRN PO DECREASED GLUCOSE; Start 05/30/17 at 07:30 Glucose (Glutose) 22.5 gm Q15M PRN PO DECREASED GLUCOSE; Start 05/30/17 at 07: 30 Dextrose (D50w Syringe) 25 ml Q15M PRN IV DECREASED GLUCOSE; Start 05/30/17 at 07:30 Dextrose (D50w Syringe) 50 ml Q15M PRN IV DECREASED GLUCOSE; Start 05/30/17 at 07:30 Glucagon (Glucagen) 1 mg Q15M PRN IM DECREASED GLUCOSE; Start 05/30/17 at 07:30 Glucose (Glutose) 15 gm Q15M PRN BUCCAL DECREASED GLUCOSE; Start 05/30/17 at 07 :30 Lorazepam (Ativan) 1 mg Q1H PRN IV SEIZURES Last administered on 06/05/17 09: 11; Admin Dose 1 MG; Start 05/30/17 at 15:00 IV Flush (NS 10 ml) 10 ml PRN PRN IV IV PROTOCOL; Start 05/30/17 at 18:30 Insulin Aspart (Novolog Insulin Pen) NOVOLOG *MILD* ALGORI... Q6 SC Last administered on 05/31/17 11:43; Admin Dose 1 UNIT; Start 05/31/17 at 00:00 Fish Oil (Fish Oil) 1,000 mg TID PO Last administered on 06/05/17 13:16; Admin Dose 1,000 MG; Start 05/31/17 at 10:00 Morphine Sulfate (morphine) 2 mg Q4H PRN IV breakthrough pain Last administered on 06/01/17 13:22; Admin Dose 2 MG; Start 06/01/17 at 12:00 Acetaminophen/ Hydrocodone Bitart 1 tab 1 tab Q4H PRN PO PAIN LEVEL 8-10; Start 06/01/17 at 11:30 Ertapenem/Sodium Chloride (Invanz/NS) 100 ml @ 200 mls/hr Q24H IVPB Last administered on 06/04/17 17:01; Admin Dose 200 MLS/HR; Start 06/02/17 at 17:00 Baclofen (Lioresal) 10 mg TID GTB Last administered on 06/05/17 13:16; Admin Dose 10 MG; Start 06/03/17 at 21:00 Metoprolol Tartrate (Lopressor) 25 mg BID GTB Last administered on 06/05/17 09 :12; Admin Dose 25 MG; Start 06/03/17 at 21:00 Phenobarbital (Luminal) 64.8 mg BID GTB Last administered on 06/05/17 09:21; Admin Dose 64.8 MG; Start 06/03/17 at 21:00 Senna (Senokot (Ped)) 5 ml BID GTB Last administered on 06/05/17 09:11; Admin Dose 5 ML; Start 06/03/17 at 21:00 Enoxaparin Sodium 100 mg 100 mg Q24H SC Last administered on 06/05/17 13:17; Admin Dose 100 MG; Start 06/04/17 at 13:00 Vancomycin HCl/ Sodium Chloride (Vancocin/NS) 250 ml @ 83.333 mls/ hr Q12H IVPB Last administered on 06/05/17 05:32; Admin Dose 83.333 MLS/HR; Start at 05:30 MIKE TRACY NP Jun 05, 2017 15:08
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
[2017-06-05] MEDS: ERTAPENEM SODIUM 1 GM in SOD CHLORIDE 0.9% 100 ML IVPB SCH (18:25)
[2017-06-05] MEDS: INSULIN GLARGINE [LANtus] 3 ML PEN SC SCH (21:54)
[2017-06-06] VITALS (22 sets, daily range): BP systolic 109–140; BP diastolic 64–76; PULSE 64–94; RESP 14–20
[2017-06-06] MEDS: ALBUTEROL 18 GM INHALER INH SCH ×4 (01:28→21:09)
[2017-06-06] MEDS: IPRATROPIUM (HFA) 12.9 GM INHALER INH SCH ×4 (01:28→21:09)
[2017-06-06] MEDS: VANCOMYCIN 1.5 GM in SOD CHLORIDE 0.9% 250 ML IVPB SCH (05:22)
[2017-06-06] MEDS: INSULIN ASPART [NOVOLOG] 3 ML PEN SC SCH ×4 (05:23→17:28)
[2017-06-06] MEDS: ACETAMINOPHEN 325 MG TAB GTB PRN (06:30)
[2017-06-06] MEDS: POLYETHYLENE GLYCOL 17 GM PACKET PO SCH (08:11)
[2017-06-06] MEDS: BALSAM PERU/CASTOR OIL 60 GM TUBE TOP SCH (08:11)
[2017-06-06] MEDS: DOCUSATE SODIUM 10 MG/ML (10ML CUP) PO SCH (08:11)
[2017-06-06] MEDS: FISH OIL 1,000 MG CAP PO SCH ×3 (08:12→22:29)
[2017-06-06] MEDS: BACLOFEN 10 MG TAB GTB SCH ×3 (08:12→22:31)
[2017-06-06] MEDS: BISACODYL 10 MG SUPP PR SCH (08:13)
[2017-06-06] MEDS: ASCORBIC ACID 500 MG TAB PO SCH (08:13)
[2017-06-06] MEDS: MULTIVITAMINS THERAPEUTIC TAB PO SCH (08:13)
[2017-06-06] MEDS: PHENOBARBITAL 32.4 MG TAB GTB SCH ×2 (08:13→22:30)
[2017-06-06 08:14] LABS: CREATININE 0.37 mg/dl (0.61-1.24)
[2017-06-06] MEDS: SENNA (PO SYG) GTB SCH ×2 (08:14→21:00)
[2017-06-06] MEDS: METOPROLOL 25 MG TAB GTB SCH ×2 (08:15→22:32)
[2017-06-06] MEDS: ENOXAPARIN 100 MG/ML SYG SC SCH (12:31)
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
--- NOTE | 2017-06-06 14:53 | CONS ---
Date/Time of Note Date/Time of Note DATE: 06/06/17 TIME: 14:51 Assessment/Plan Assessment/Plan Chief Complaint/Hosp Course SUBJECTIVE DATA: no fevers patient is lying comfortably in bed BUN 11 creatinine 0.37 Blood cultures repeated on June 04 positive for gram-negative rods Antimicrobials patient is on IV vancomycin and Invanz INDWELLINGS: Trach, PEG, Rodriguez, PICC line. OBJECTIVE DATA: GENERAL: Chronically ill-appearing, middle-aged man, who is in persistent vegetative state. HEENT: Head atraumatic, normocephalic. Sclerae anicteric. NECK: Obese. CHEST: Rise symmetrical. Breath sounds diminished at the bases. HEART: S1, S2. ABDOMEN: Soft, bowel sounds present. EXTREMITIES: With bilateral edema. ASSESSMENT: 1. Sepsis with persistent bacteremia 2. Escherichia coli extended-spectrum beta-lactamase urinary tract infection. 3. Chronic respiratory failure. 4. Anoxic brain injury. 5. Diabetes. 6. Left subclavian DVT 7. Coag negative staph bacteremia, consistent with contaminant PLAN: Clinically unchanged, status post cystoscopy with placement of Rodriguez catheter, no report of procedure in the computer yet, we are going to discontinue vancomycin, keep patient on Invanz, follow repeat cultures, follow urology recommendations Problems: Consultation Date/Type/Reason Admit Date/Time May 29, 2017 at 21:56 Initial Consult Date 05/30/17 Type of Consultation: ID Exam/Review of Systems Vital Signs Vitals Vital Signs Date Time Temp Pulse Resp B/P Pulse Ox O2 Delivery O2 Flow Rate FiO2 06/06/17 12:24 98.0 72 18 112/64 98 06/06/17 07:48 30 Intake and Output 06/05/17 06/05/17 06/06/17 15:00 23:00 07:00 Intake Total 100 ml 680 ml 950 ml Output Total 101 ml 650 ml 850 ml Balance -1 ml 30 ml 100 ml Results Result Diagram: 06/04/17 0737 06/06/17 0646 Results 24 hrs Laboratory Tests Test 06/05/17 17:37 06/05/17 21:49 06/06/17 00:32 06/06/17 05:18 Bedside Glucose 84 91 95 82 Test 06/06/17 06:46 06/06/17 11:45 Blood Urea Nitrogen 11 Creatinine 0.37 L Bedside Glucose 98 Medications Medications Current Medications Hydromorphone HCl (Dilaudid) 1.5 mg ONCE PRN IV PAIN Last administered on 02:24; Admin Dose 1.5 MG; Start 05/30/17 at 02:07 Lorazepam (Ativan) 2 mg Q6H PRN PO SEIZURES Last administered on 05/30/17 09: 40; Admin Dose 2 MG; Start 05/30/17 at 02:30 Ondansetron HCl (Zofran Inj) 4 mg Q6H PRN IV NAUSEA AND/OR VOMITING; Start at 03:00 Acetaminophen (Tylenol Tab) 1,000 mg Q6H PRN PO PAIN LEVEL 6-10; Start at 03:00 Ascorbic Acid (Vitamin C) 500 mg DAILY PO Last administered on 06/06/17 08:13 ; Admin Dose 500 MG; Start 05/30/17 at 09:00 Bisacodyl (Dulcolax Supp) 10 mg DAILY [place] Last administered on 06/05/17 09:12; Admin Dose 10 MG; Start 05/30/17 at 09:00 Docusate Sodium (Colace Liquid Cup) 200 mg DAILY PO Last administered on 08:11; Admin Dose 200 MG; Start 05/30/17 at 09:00 Insulin Glargine (Lantus) 8 unit QHS SC Last administered on 06/05/17 21:54; Admin Dose 8 UNIT; Start 05/30/17 at 21:00 Multivitamins Therapeutic (Theragran) 1 tab DAILY PO Last administered on 08:13; Admin Dose 1 TAB; Start 05/30/17 at 09:00 Polyethylene Glycol (Miralax) 17 gm DAILY PO Last administered on 06/06/17 08: 11; Admin Dose 17 GM; Start 05/30/17 at 09:00 Miscellaneous Information 1 ea NOTE XX ; Start 05/30/17 at 07:30 Glucose (Glutose) 15 gm Q15M PRN PO DECREASED GLUCOSE; Start 05/30/17 at 07:30 Glucose (Glutose) 22.5 gm Q15M PRN PO DECREASED GLUCOSE; Start 05/30/17 at 07: 30 Dextrose (D50w Syringe) 25 ml Q15M PRN IV DECREASED GLUCOSE; Start 05/30/17 at 07:30 Dextrose (D50w Syringe) 50 ml Q15M PRN IV DECREASED GLUCOSE; Start 05/30/17 at 07:30 Glucagon (Glucagen) 1 mg Q15M PRN IM DECREASED GLUCOSE; Start 05/30/17 at 07:30 Glucose (Glutose) 15 gm Q15M PRN BUCCAL DECREASED GLUCOSE; Start 05/30/17 at 07 :30 Lorazepam (Ativan) 1 mg Q1H PRN IV SEIZURES Last administered on 06/05/17 09: 11; Admin Dose 1 MG; Start 05/30/17 at 15:00 IV Flush (NS 10 ml) 10 ml PRN PRN IV IV PROTOCOL; Start 05/30/17 at 18:30 Insulin Aspart (Novolog Insulin Pen) NOVOLOG *MILD* ALGORI... Q6 SC Last administered on 05/31/17 11:43; Admin Dose 1 UNIT; Start 05/31/17 at 00:00 Fish Oil (Fish Oil) 1,000 mg TID PO Last administered on 06/06/17 12:20; Admin Dose 1,000 MG; Start 05/31/17 at 10:00 Morphine Sulfate (morphine) 2 mg Q4H PRN IV breakthrough pain Last administered on 06/01/17 13:22; Admin Dose 2 MG; Start 06/01/17 at 12:00 Acetaminophen/ Hydrocodone Bitart 1 tab 1 tab Q4H PRN PO PAIN LEVEL 8-10; Start 06/01/17 at 11:30 Ertapenem/Sodium Chloride (Invanz/NS) 100 ml @ 200 mls/hr Q24H IVPB Last administered on 06/05/17 18:25; Admin Dose 200 MLS/HR; Start 06/02/17 at 17:00 Baclofen (Lioresal) 10 mg TID GTB Last administered on 06/06/17 12:21; Admin Dose 10 MG; Start 06/03/17 at 21:00 Metoprolol Tartrate (Lopressor) 25 mg BID GTB Last administered on 06/06/17 08 :15; Admin Dose 25 MG; Start 06/03/17 at 21:00 Phenobarbital (Luminal) 64.8 mg BID GTB Last administered on 06/06/17 08:13; Admin Dose 64.8 MG; Start 06/03/17 at 21:00 Senna (Senokot (Ped)) 5 ml BID GTB Last administered on 06/06/17 08:14; Admin Dose 5 ML; Start 06/03/17 at 21:00 Enoxaparin Sodium 100 mg 100 mg Q24H SC Last administered on 06/06/17 12:31; Admin Dose 100 MG; Start 06/04/17 at 13:00 Vancomycin HCl/ Sodium Chloride (Vancocin/NS) 250 ml @ 83.333 mls/ hr Q12H IVPB Last administered on 06/06/17 05:22; Admin Dose 83.333 MLS/HR; Start at 05:30 Miscellaneous Information (*Rx Drug Level Order Reminder*) VANCO TROUGH @ 1, 630 ON... ONCE ONCE XX ; Start 06/06/17 at 16:30; Stop 06/06/17 at 16:31 Acetaminophen (Tylenol Tab) 650 mg Q6H PRN GTB PAIN LEVEL 1-3 OR FEVER Last administered on 06/06/17 06:30; Admin Dose 650 MG; Start 06/06/17 at 09:00 MIKE TRACY NP Jun 06, 2017 14:53
[2017-06-06] MEDS: ERTAPENEM SODIUM 1 GM in SOD CHLORIDE 0.9% 100 ML IVPB SCH (16:21)
[2017-06-06] MEDS: INSULIN GLARGINE [LANtus] 3 ML PEN SC SCH (22:49)
[2017-06-07] VITALS (24 sets, daily range): BP systolic 129–158; BP diastolic 67–83; PULSE 75–88; RESP 14–24
[2017-06-07] MEDS: ALBUTEROL 18 GM INHALER INH SCH ×4 (02:39→19:40)
[2017-06-07] MEDS: IPRATROPIUM (HFA) 12.9 GM INHALER INH SCH ×4 (02:40→19:40)
[2017-06-07] MEDS: INSULIN ASPART [NOVOLOG] 3 ML PEN SC SCH ×4 (05:23→17:06)
[2017-06-07] MEDS: BISACODYL 10 MG SUPP PR SCH ×2 (08:03→09:00)
[2017-06-07] MEDS: SENNA (PO SYG) GTB SCH ×3 (08:03→21:00)
[2017-06-07] MEDS: DOCUSATE SODIUM 10 MG/ML (10ML CUP) PO SCH ×2 (08:03→09:00)
[2017-06-07 08:09] LABS: CALCIUM 8.6 mg/dl (8.4-10.2); CREATININE 0.4 mg/dl (0.61-1.24); POTASSIUM 5.2 mmol/L (3.5-5.1)
[2017-06-07] MEDS: POLYETHYLENE GLYCOL 17 GM PACKET PO SCH (09:00)
[2017-06-07] MEDS: FISH OIL 1,000 MG CAP PO SCH ×3 (09:09→21:45)
[2017-06-07] MEDS: BACLOFEN 10 MG TAB GTB SCH ×3 (09:10→21:45)
[2017-06-07] MEDS: METOPROLOL 25 MG TAB GTB SCH ×2 (09:10→21:47)
[2017-06-07] MEDS: MULTIVITAMINS THERAPEUTIC TAB PO SCH (09:10)
[2017-06-07] MEDS: ASCORBIC ACID 500 MG TAB PO SCH (09:10)
[2017-06-07] MEDS: BALSAM PERU/CASTOR OIL 60 GM TUBE TOP SCH (09:11)
[2017-06-07] MEDS: PHENOBARBITAL 32.4 MG TAB GTB SCH ×2 (09:13→21:55)
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
[2017-06-07] MEDS: ENOXAPARIN 100 MG/ML SYG SC SCH (12:39)
--- NOTE | 2017-06-07 12:59 | CONS ---
Date/Time of Note Date/Time of Note DATE: 06/07/17 TIME: 12:57 Assessment/Plan Assessment/Plan Additional Assessment/Plan Ventilator setting; AC of 14, tidal volume 600, PEEP of 5, 30% FiO2. Assessment and recommendations; 1. Patient admitted with severe sepsis with Nel and E. coli positive blood cultures as well as coagulase-negative positive blood cultures. Currently on appropriate antibiotic regimen. 2. Persistent vegetative state. 3. Chronic respiratory failure. 4. History of brain trauma. Continue current supportive care. Consultation Date/Type/Reason Admit Date/Time May 29, 2017 at 21:56 Initial Consult Date 05/30/17 Type of Consultation: Pulmonary 24 HR Interval Summary Free Text/Dictation Patient condition remains stable. Remains chronically ventilator dependent. Has remained hemodynamically stable. General exam; young male, on ventilator via tracheostomy, unresponsive, currently in no distress. Awake. Exam/Review of Systems Vital Signs Vitals Vital Signs Date Time Temp Pulse Resp B/P Pulse Ox O2 Delivery O2 Flow Rate FiO2 06/07/17 12:30 75 06/07/17 11:33 98.6 18 130/72 94 06/07/17 11:05 30 Intake and Output 06/06/17 06/06/17 06/07/17 15:00 23:00 07:00 Intake Total 800 ml 850 ml Output Total 1500 ml 800 ml Balance -700 ml 50 ml Exam HEENT exam; supple neck, no JVD. No lymphadenopathy. Midline trachea. No thyromegaly. Multiple cranial scars are present. Tracheostomy in place. Patient has fair dentition. Chest exam; diminished but clear breath sounds. S1-S2 audible, no murmurs. Regular rhythm. Abdomen exam; soft, no organomegaly. G-tube in place. Bowel sounds audible. Extremity exam; no edema. Patient does have contractures involving all 4 extremities. FLOUR BROKER exam; patient is awake but unresponsive to any commands. Results Result Diagram: 06/04/17 0737 06/07/17 0716 Results 24 hrs Laboratory Tests Test 06/06/17 17:27 06/06/17 22:44 06/07/17 01:01 06/07/17 05:16 Bedside Glucose 86 91 108 104 Test 06/07/17 07:16 06/07/17 12:18 Sodium Level 133 L Potassium Level 5.2 H Chloride Level 99 Carbon Dioxide Level 23 Anion Gap 16 Blood Urea Nitrogen 11 Creatinine 0.40 L Glucose Level 89 Calcium Level 8.6 Bedside Glucose 101 Medications Medications Current Medications Hydromorphone HCl (Dilaudid) 1.5 mg ONCE PRN IV PAIN Last administered on 02:24; Admin Dose 1.5 MG; Start 05/30/17 at 02:07 Lorazepam (Ativan) 2 mg Q6H PRN PO SEIZURES Last administered on 05/30/17 09: 40; Admin Dose 2 MG; Start 05/30/17 at 02:30 Ondansetron HCl (Zofran Inj) 4 mg Q6H PRN IV NAUSEA AND/OR VOMITING; Start at 03:00 Acetaminophen (Tylenol Tab) 1,000 mg Q6H PRN PO PAIN LEVEL 6-10; Start at 03:00 Ascorbic Acid (Vitamin C) 500 mg DAILY PO Last administered on 06/07/17 09:10 ; Admin Dose 500 MG; Start 05/30/17 at 09:00 Bisacodyl (Dulcolax Supp) 10 mg DAILY [place] Last administered on 06/05/17 09:12; Admin Dose 10 MG; Start 05/30/17 at 09:00 Docusate Sodium (Colace Liquid Cup) 200 mg DAILY PO Last administered on 08:11; Admin Dose 200 MG; Start 05/30/17 at 09:00 Insulin Glargine (Lantus) 8 unit QHS SC Last administered on 06/06/17 22:49; Admin Dose 8 UNIT; Start 05/30/17 at 21:00 Multivitamins Therapeutic (Theragran) 1 tab DAILY PO Last administered on 09:10; Admin Dose 1 TAB; Start 05/30/17 at 09:00 Polyethylene Glycol (Miralax) 17 gm DAILY PO Last administered on 06/06/17 08: 11; Admin Dose 17 GM; Start 05/30/17 at 09:00 Miscellaneous Information 1 ea NOTE XX ; Start 05/30/17 at 07:30 Glucose (Glutose) 15 gm Q15M PRN PO DECREASED GLUCOSE; Start 05/30/17 at 07:30 Glucose (Glutose) 22.5 gm Q15M PRN PO DECREASED GLUCOSE; Start 05/30/17 at 07: 30 Dextrose (D50w Syringe) 25 ml Q15M PRN IV DECREASED GLUCOSE; Start 05/30/17 at 07:30 Dextrose (D50w Syringe) 50 ml Q15M PRN IV DECREASED GLUCOSE; Start 05/30/17 at 07:30 Glucagon (Glucagen) 1 mg Q15M PRN IM DECREASED GLUCOSE; Start 05/30/17 at 07:30 Glucose (Glutose) 15 gm Q15M PRN BUCCAL DECREASED GLUCOSE; Start 05/30/17 at 07 :30 Lorazepam (Ativan) 1 mg Q1H PRN IV SEIZURES Last administered on 06/05/17 09: 11; Admin Dose 1 MG; Start 05/30/17 at 15:00 IV Flush (NS 10 ml) 10 ml PRN PRN IV IV PROTOCOL; Start 05/30/17 at 18:30 Insulin Aspart (Novolog Insulin Pen) NOVOLOG *MILD* ALGORI... Q6 SC Last administered on 05/31/17 11:43; Admin Dose 1 UNIT; Start 05/31/17 at 00:00 Fish Oil (Fish Oil) 1,000 mg TID PO Last administered on 06/07/17 12:32; Admin Dose 1,000 MG; Start 05/31/17 at 10:00 Morphine Sulfate (morphine) 2 mg Q4H PRN IV breakthrough pain Last administered on 06/01/17 13:22; Admin Dose 2 MG; Start 06/01/17 at 12:00 Acetaminophen/ Hydrocodone Bitart 1 tab 1 tab Q4H PRN PO PAIN LEVEL 8-10; Start 06/01/17 at 11:30 Ertapenem/Sodium Chloride (Invanz/NS) 100 ml @ 200 mls/hr Q24H IVPB Last administered on 06/06/17 16:21; Admin Dose 200 MLS/HR; Start 06/02/17 at 17:00 Baclofen (Lioresal) 10 mg TID GTB Last administered on 06/07/17 12:33; Admin Dose 10 MG; Start 06/03/17 at 21:00 Metoprolol Tartrate (Lopressor) 25 mg BID GTB Last administered on 06/07/17 09 :10; Admin Dose 25 MG; Start 06/03/17 at 21:00 Phenobarbital (Luminal) 64.8 mg BID GTB Last administered on 06/07/17 09:13; Admin Dose 64.8 MG; Start 06/03/17 at 21:00 Senna (Senokot (Ped)) 5 ml BID GTB Last administered on 06/06/17 21:00; Admin Dose 5 ML; Start 06/03/17 at 21:00 Enoxaparin Sodium (Lovenox) 100 mg Q24H SC Last administered on 06/07/17 12:39 ; Admin Dose 100 MG; Start 06/04/17 at 13:00 Acetaminophen (Tylenol Tab) 650 mg Q6H PRN GTB PAIN LEVEL 1-3 OR FEVER Last administered on 06/06/17 06:30; Admin Dose 650 MG; Start 06/06/17 at 09:00 DONOVAN NULL Jun 07, 2017 12:59
--- NOTE | 2017-06-07 14:37 | CONS ---
Date/Time of Note Date/Time of Note DATE: 06/07/17 TIME: 14:33 Assessment/Plan Assessment/Plan Chief Complaint/Hosp Course SUBJECTIVE DATA: no fevers patient is lying comfortably in bed, eyes are open , noncommunicative BUN 11 creatinine 0.37 Blood cultures repeated on June 04 + MDR Kleb Antimicrobials patient is on IV vancomycin and Invanz INDWELLINGS: Trach, PEG, Rodriguez, PICC line. OBJECTIVE DATA: GENERAL: Chronically ill-appearing, middle-aged man, who is in persistent vegetative state. HEENT: Head atraumatic, normocephalic. Sclerae anicteric. NECK: Obese. CHEST: Rise symmetrical. Breath sounds diminished at the bases. HEART: S1, S2. ABDOMEN: Soft, bowel sounds present. EXTREMITIES: With bilateral edema. ASSESSMENT: 1. Sepsis with persistent bacteremia 2. Escherichia coli extended-spectrum beta-lactamase urinary tract infection. 3. Chronic respiratory failure. 4. Anoxic brain injury. 5. Diabetes. 6. Left subclavian DVT 7. Coag negative staph bacteremia, consistent with contaminant PLAN: Clinically unchanged, status post cystoscopy with placement of Rodriguez catheter, will add Colistin, continue Invanz for now, repeat bld cx again today Problems: Consultation Date/Type/Reason Admit Date/Time May 29, 2017 at 21:56 Initial Consult Date 05/30/17 Type of Consultation: ID Exam/Review of Systems Vital Signs Vitals Vital Signs Date Time Temp Pulse Resp B/P Pulse Ox O2 Delivery O2 Flow Rate FiO2 06/07/17 13:00 85 14 96 30 06/07/17 11:33 98.6 130/72 Intake and Output 06/06/17 06/06/17 06/07/17 15:00 23:00 07:00 Intake Total 800 ml 850 ml Output Total 1500 ml 800 ml Balance -700 ml 50 ml Results Result Diagram: 06/04/17 0737 06/07/17 0716 Results 24 hrs Laboratory Tests Test 06/06/17 17:27 06/06/17 22:44 06/07/17 01:01 06/07/17 05:16 Bedside Glucose 86 91 108 104 Test 06/07/17 07:16 06/07/17 12:18 Sodium Level 133 L Potassium Level 5.2 H Chloride Level 99 Carbon Dioxide Level 23 Anion Gap 16 Blood Urea Nitrogen 11 Creatinine 0.40 L Glucose Level 89 Calcium Level 8.6 Bedside Glucose 101 Medications Medications Current Medications Hydromorphone HCl (Dilaudid) 1.5 mg ONCE PRN IV PAIN Last administered on 02:24; Admin Dose 1.5 MG; Start 05/30/17 at 02:07 Lorazepam (Ativan) 2 mg Q6H PRN PO SEIZURES Last administered on 05/30/17 09: 40; Admin Dose 2 MG; Start 05/30/17 at 02:30 Ondansetron HCl (Zofran Inj) 4 mg Q6H PRN IV NAUSEA AND/OR VOMITING; Start at 03:00 Acetaminophen (Tylenol Tab) 1,000 mg Q6H PRN PO PAIN LEVEL 6-10; Start at 03:00 Ascorbic Acid (Vitamin C) 500 mg DAILY PO Last administered on 06/07/17 09:10 ; Admin Dose 500 MG; Start 05/30/17 at 09:00 Bisacodyl (Dulcolax Supp) 10 mg DAILY [place] Last administered on 06/05/17 09:12; Admin Dose 10 MG; Start 05/30/17 at 09:00 Docusate Sodium (Colace Liquid Cup) 200 mg DAILY PO Last administered on 08:11; Admin Dose 200 MG; Start 05/30/17 at 09:00 Insulin Glargine (Lantus) 8 unit QHS SC Last administered on 06/06/17 22:49; Admin Dose 8 UNIT; Start 05/30/17 at 21:00 Multivitamins Therapeutic (Theragran) 1 tab DAILY PO Last administered on 09:10; Admin Dose 1 TAB; Start 05/30/17 at 09:00 Polyethylene Glycol (Miralax) 17 gm DAILY PO Last administered on 06/06/17 08: 11; Admin Dose 17 GM; Start 05/30/17 at 09:00 Miscellaneous Information 1 ea NOTE XX ; Start 05/30/17 at 07:30 Glucose (Glutose) 15 gm Q15M PRN PO DECREASED GLUCOSE; Start 05/30/17 at 07:30 Glucose (Glutose) 22.5 gm Q15M PRN PO DECREASED GLUCOSE; Start 05/30/17 at 07: 30 Dextrose (D50w Syringe) 25 ml Q15M PRN IV DECREASED GLUCOSE; Start 05/30/17 at 07:30 Dextrose (D50w Syringe) 50 ml Q15M PRN IV DECREASED GLUCOSE; Start 05/30/17 at 07:30 Glucagon (Glucagen) 1 mg Q15M PRN IM DECREASED GLUCOSE; Start 05/30/17 at 07:30 Glucose (Glutose) 15 gm Q15M PRN BUCCAL DECREASED GLUCOSE; Start 05/30/17 at 07 :30 Lorazepam (Ativan) 1 mg Q1H PRN IV SEIZURES Last administered on 06/05/17 09: 11; Admin Dose 1 MG; Start 05/30/17 at 15:00 IV Flush (NS 10 ml) 10 ml PRN PRN IV IV PROTOCOL; Start 05/30/17 at 18:30 Insulin Aspart (Novolog Insulin Pen) NOVOLOG *MILD* ALGORI... Q6 SC Last administered on 05/31/17 11:43; Admin Dose 1 UNIT; Start 05/31/17 at 00:00 Fish Oil (Fish Oil) 1,000 mg TID PO Last administered on 06/07/17 12:32; Admin Dose 1,000 MG; Start 05/31/17 at 10:00 Morphine Sulfate (morphine) 2 mg Q4H PRN IV breakthrough pain Last administered on 06/01/17 13:22; Admin Dose 2 MG; Start 06/01/17 at 12:00 Acetaminophen/ Hydrocodone Bitart 1 tab 1 tab Q4H PRN PO PAIN LEVEL 8-10; Start 06/01/17 at 11:30 Ertapenem/Sodium Chloride (Invanz/NS) 100 ml @ 200 mls/hr Q24H IVPB Last administered on 06/06/17 16:21; Admin Dose 200 MLS/HR; Start 06/02/17 at 17:00 Baclofen (Lioresal) 10 mg TID GTB Last administered on 06/07/17 12:33; Admin Dose 10 MG; Start 06/03/17 at 21:00 Metoprolol Tartrate (Lopressor) 25 mg BID GTB Last administered on 06/07/17 09 :10; Admin Dose 25 MG; Start 06/03/17 at 21:00 Phenobarbital (Luminal) 64.8 mg BID GTB Last administered on 06/07/17 09:13; Admin Dose 64.8 MG; Start 06/03/17 at 21:00 Senna (Senokot (Ped)) 5 ml BID GTB Last administered on 06/06/17 21:00; Admin Dose 5 ML; Start 06/03/17 at 21:00 Enoxaparin Sodium (Lovenox) 100 mg Q24H SC Last administered on 06/07/17 12:39 ; Admin Dose 100 MG; Start 06/04/17 at 13:00 Acetaminophen (Tylenol Tab) 650 mg Q6H PRN GTB PAIN LEVEL 1-3 OR FEVER Last administered on 06/06/17 06:30; Admin Dose 650 MG; Start 06/06/17 at 09:00 MIKE TRACY NP Jun 07, 2017 14:37
[2017-06-07] MEDS ORDERED: COLISTIMETHATE 75 MG in SOD CHLORIDE 0.9% 100 ML IVPB SCH (16:00)
[2017-06-07] MEDS: ERTAPENEM SODIUM 1 GM in SOD CHLORIDE 0.9% 100 ML IVPB SCH (16:01)
[2017-06-07] MEDS: INSULIN GLARGINE [LANtus] 3 ML PEN SC SCH (21:49)
[2017-06-07] MEDS: COLISTIMETHATE 100 MG in SOD CHLORIDE 0.9% 100 ML IVPB SCH (21:58)
[2017-06-08] VITALS (24 sets, daily range): BP systolic 113–142; BP diastolic 65–84; PULSE 80–90; RESP 14–22
[2017-06-08] MEDS: ALBUTEROL 18 GM INHALER INH SCH ×4 (00:48→19:55)
[2017-06-08] MEDS: IPRATROPIUM (HFA) 12.9 GM INHALER INH SCH ×4 (00:48→19:54)
[2017-06-08] MEDS: INSULIN ASPART [NOVOLOG] 3 ML PEN SC SCH ×4 (06:00→17:27)
[2017-06-08] MEDS: FISH OIL 1,000 MG CAP PO SCH ×3 (09:50→21:50)
[2017-06-08] MEDS: BISACODYL 10 MG SUPP PR SCH (09:50)
[2017-06-08] MEDS: ASCORBIC ACID 500 MG TAB PO SCH (09:50)
[2017-06-08] MEDS: DOCUSATE SODIUM 10 MG/ML (10ML CUP) PO SCH (09:50)
[2017-06-08] MEDS: BACLOFEN 10 MG TAB GTB SCH ×3 (09:50→21:50)
[2017-06-08] MEDS: POLYETHYLENE GLYCOL 17 GM PACKET PO SCH (09:50)
[2017-06-08] MEDS: PHENOBARBITAL 32.4 MG TAB GTB SCH ×2 (09:50→21:48)
[2017-06-08] MEDS: MULTIVITAMINS THERAPEUTIC TAB PO SCH (09:50)
[2017-06-08] MEDS: SENNA (PO SYG) GTB SCH ×2 (09:50→21:47)
[2017-06-08] MEDS: BALSAM PERU/CASTOR OIL 60 GM TUBE TOP SCH (09:51)
[2017-06-08] MEDS: METOPROLOL 25 MG TAB GTB SCH ×2 (09:51→21:50)
[2017-06-08] MEDS: COLISTIMETHATE 100 MG in SOD CHLORIDE 0.9% 100 ML IVPB SCH ×2 (09:52→21:47)
[2017-06-08] MEDS: ACETAMINOPHEN 325 MG TAB GTB PRN ×2 (09:58→18:09)
--- NOTE | 2017-06-08 12:29 | CONS ---
Date/Time of Note Date/Time of Note DATE: 06/08/17 TIME: 12:27 Assessment/Plan Assessment/Plan Additional Assessment/Plan Ventilator setting; AC of 14, tidal volume 600, PEEP of 5, 30% FiO2. Assessment and recommendations; 1. Patient admitted with severe sepsis with multiple organisms grown from blood cultures including E. coli as well as Klebsiella and coagulase negative staph aureus. Currently on appropriate antibiotic regimen. 2. Chronic respiratory failure. 3. History of traumatic brain injury. Continue current treatment. Consultation Date/Type/Reason Admit Date/Time May 29, 2017 at 21:56 Initial Consult Date 05/30/17 Type of Consultation: Pulmonary 24 HR Interval Summary Free Text/Dictation Patient's condition has remained stable. Has remained hemodynamically stable. Patient remains in persistent vegetative state and remains chronically ventilator dependent. General exam; young male, on ventilator via tracheostomy, unresponsive, currently in no distress. Exam/Review of Systems Vital Signs Vitals Vital Signs Date Time Temp Pulse Resp B/P Pulse Ox O2 Delivery O2 Flow Rate FiO2 06/08/17 12:20 90 06/08/17 12:05 101.9 17 123/73 100 06/08/17 11:05 30 06/08/17 00:00 Mechanical Ventilator Intake and Output 06/07/17 06/07/17 06/08/17 15:00 23:00 07:00 Intake Total 1150 ml 910 ml Output Total 1200 ml 1900 ml Balance -50 ml -990 ml Exam HEENT exam; supple neck, no JVD. No lymphadenopathy. Midline trachea. No thyromegaly. Tracheostomy in place. There are multiple well-healed cranial scars present. Chest exam; diminished but clear breath sounds. S1-S2 audible, no murmurs. Regular rhythm. Abdomen exam; soft, non distended, G-tube in place. No organomegaly. Bowel sounds audible. Extremity exam; no peripheral edema. Patient does have contractures involving all 4 extremities. INDEX CLERK exam; patient remains unresponsive. Results Result Diagram: 06/04/17 0737 06/07/17 0716 Results 24 hrs Laboratory Tests Test 06/07/17 17:05 06/07/17 21:40 06/08/17 00:31 06/08/17 05:58 Bedside Glucose 100 101 97 99 Test 06/08/17 12:21 Bedside Glucose 101 Medications Medications Current Medications Hydromorphone HCl (Dilaudid) 1.5 mg ONCE PRN IV PAIN Last administered on 02:24; Admin Dose 1.5 MG; Start 05/30/17 at 02:07 Lorazepam (Ativan) 2 mg Q6H PRN PO SEIZURES Last administered on 05/30/17 09: 40; Admin Dose 2 MG; Start 05/30/17 at 02:30 Ondansetron HCl (Zofran Inj) 4 mg Q6H PRN IV NAUSEA AND/OR VOMITING; Start at 03:00 Acetaminophen (Tylenol Tab) 1,000 mg Q6H PRN PO PAIN LEVEL 6-10; Start at 03:00 Ascorbic Acid (Vitamin C) 500 mg DAILY PO Last administered on 06/08/17 09:50 ; Admin Dose 500 MG; Start 05/30/17 at 09:00 Bisacodyl (Dulcolax Supp) 10 mg DAILY [place] Last administered on 06/08/17 09:50; Admin Dose 10 MG; Start 05/30/17 at 09:00 Docusate Sodium (Colace Liquid Cup) 200 mg DAILY PO Last administered on 09:50; Admin Dose 200 MG; Start 05/30/17 at 09:00 Insulin Glargine (Lantus) 8 unit QHS SC Last administered on 06/07/17 21:49; Admin Dose 8 UNIT; Start 05/30/17 at 21:00 Multivitamins Therapeutic (Theragran) 1 tab DAILY PO Last administered on 09:50; Admin Dose 1 TAB; Start 05/30/17 at 09:00 Polyethylene Glycol (Miralax) 17 gm DAILY PO Last administered on 06/08/17 09: 50; Admin Dose 17 GM; Start 05/30/17 at 09:00 Miscellaneous Information 1 ea NOTE XX ; Start 05/30/17 at 07:30 Glucose (Glutose) 15 gm Q15M PRN PO DECREASED GLUCOSE; Start 05/30/17 at 07:30 Glucose (Glutose) 22.5 gm Q15M PRN PO DECREASED GLUCOSE; Start 05/30/17 at 07: 30 Dextrose (D50w Syringe) 25 ml Q15M PRN IV DECREASED GLUCOSE; Start 05/30/17 at 07:30 Dextrose (D50w Syringe) 50 ml Q15M PRN IV DECREASED GLUCOSE; Start 05/30/17 at 07:30 Glucagon (Glucagen) 1 mg Q15M PRN IM DECREASED GLUCOSE; Start 05/30/17 at 07:30 Glucose (Glutose) 15 gm Q15M PRN BUCCAL DECREASED GLUCOSE; Start 05/30/17 at 07 :30 Lorazepam (Ativan) 1 mg Q1H PRN IV SEIZURES Last administered on 06/05/17 09: 11; Admin Dose 1 MG; Start 05/30/17 at 15:00 IV Flush (NS 10 ml) 10 ml PRN PRN IV IV PROTOCOL; Start 05/30/17 at 18:30 Insulin Aspart (Novolog Insulin Pen) NOVOLOG *MILD* ALGORI... Q6 SC Last administered on 05/31/17 11:43; Admin Dose 1 UNIT; Start 05/31/17 at 00:00 Fish Oil (Fish Oil) 1,000 mg TID PO Last administered on 06/08/17 09:50; Admin Dose 1,000 MG; Start 05/31/17 at 10:00 Morphine Sulfate (morphine) 2 mg Q4H PRN IV breakthrough pain Last administered on 06/01/17 13:22; Admin Dose 2 MG; Start 06/01/17 at 12:00 Acetaminophen/ Hydrocodone Bitart 1 tab 1 tab Q4H PRN PO PAIN LEVEL 8-10; Start 06/01/17 at 11:30 Ertapenem/Sodium Chloride (Invanz/NS) 100 ml @ 200 mls/hr Q24H IVPB Last administered on 06/07/17 16:01; Admin Dose 200 MLS/HR; Start 06/02/17 at 17:00 Baclofen (Lioresal) 10 mg TID GTB Last administered on 06/08/17 09:50; Admin Dose 10 MG; Start 06/03/17 at 21:00 Metoprolol Tartrate (Lopressor) 25 mg BID GTB Last administered on 06/08/17 09 :51; Admin Dose 25 MG; Start 06/03/17 at 21:00 Phenobarbital (Luminal) 64.8 mg BID GTB Last administered on 06/08/17 09:50; Admin Dose 64.8 MG; Start 06/03/17 at 21:00 Enoxaparin Sodium (Lovenox) 100 mg Q24H SC Last administered on 06/07/17 12:39 ; Admin Dose 100 MG; Start 06/04/17 at 13:00 Acetaminophen (Tylenol Tab) 650 mg Q6H PRN GTB PAIN LEVEL 1-3 OR FEVER Last administered on 06/08/17 09:58; Admin Dose 650 MG; Start 06/06/17 at 09:00 Senna 5 ml 5 ml BID GTB Last administered on 06/08/17 09:50; Admin Dose 5 ML; Start 06/07/17 at 21:00 Colistimethate Sodium/Sodium Chloride (Coly-Mycin/NS) 100 ml @ 200 mls/hr Q12 IVPB Last administered on 06/08/17 09:52; Admin Dose 200 MLS/HR; Start at 21:00 DONOVAN NULL Jun 08, 2017 12:29
[2017-06-08] MEDS: ENOXAPARIN 100 MG/ML SYG SC SCH (13:01)
[2017-06-08] MEDS: LORAZEPAM 2 MG INJ IV PRN (14:01)
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
[2017-06-08 14:19] LABS: BASOPHILS % 0.3 % (0.0-2.0); EOSINOPHILS # 0.1 10^3/ul (0.0-0.5); EOSINOPHILS % 0.7 % (0.0-7.0); HEMATOCRIT 30.8 % (42.0-52.0); HEMOGLOBIN 9.9 g/dl (14.0-18.0); LYMPHOCYTES # 1.8 10^3/ul (0.8-2.9); LYMPHOCYTES % 15.2 % (15.0-51.0); MEAN CORPUSCULAR HEMOGLOBIN 22.7 pg (29.0-33.0); MEAN CORPUSCULAR HGB CONC 32.1 g/dl (32.0-37.0); MEAN CORPUSCULAR VOLUME 70.6 fl (82.0-101.0); MEAN PLATELET VOLUME 10.7 fl (7.4-10.4); MONOCYTE # 0.6 10^3/ul (0.3-0.9); MONOCYTES % 4.9 % (0.0-11.0); NEUTROPHIL # 9.4 10^3/ul (1.6-7.5); NEUTROPHILS % 78.1 % (39.0-77.0); PLATELET COUNT 403 10^3/UL (140-415); RED BLOOD COUNT 4.36 10^6/ul (4.70-6.10); RED CELL DISTRIBUTION WIDTH 15.2 % (11.5-14.5)
[2017-06-08 14:36] LABS: CALCIUM 8.8 mg/dl (8.4-10.2); CREATININE 0.46 mg/dl (0.61-1.24); POTASSIUM 4.8 mmol/L (3.5-5.1)
--- NOTE | 2017-06-08 14:37 | CONS ---
Date/Time of Note Date/Time of Note DATE: 06/08/17 TIME: 14:33 Assessment/Plan Assessment/Plan Chief Complaint/Hosp Course Assessment/Plan Chief Complaint/Hosp Course SUBJECTIVE DATA: Patient is lying comfortably in bed. Noncommunicative. No Acute Distress. BUN 11 creatinine 0.37 Blood cultures repeated on June 04 + MDR Kleb Antimicrobials patient is on IV vancomycin and Invanz INDWELLINGS: Trach, PEG, Rodriguez, PICC line. OBJECTIVE DATA: GENERAL: Chronically ill-appearing, middle-aged man, who is in persistent vegetative state. HEENT: Head atraumatic, normocephalic. Sclerae anicteric. NECK: Obese. CHEST: Rise symmetrical. Breath sounds diminished at the bases. HEART: S1, S2. ABDOMEN: Soft, bowel sounds present. EXTREMITIES: With bilateral edema. ASSESSMENT: 1. Sepsis with persistent bacteremia 2. Escherichia coli extended-spectrum beta-lactamase urinary tract infection. 3. Chronic respiratory failure. 4. Anoxic brain injury. 5. Diabetes. 6. Left subclavian DVT 7. Coag negative staph bacteremia, consistent with contaminant 8. Fever PLAN: Status post cystoscopy with placement of Rodriguez catheter, will add Colistin , continue Invanz for now. Follow Up on blood cultures. Monitor Labs. Problems: Consultation Date/Type/Reason Admit Date/Time May 29, 2017 at 21:56 Initial Consult Date 05/30/17 Type of Consultation: id Exam/Review of Systems Vital Signs Vitals Vital Signs Date Time Temp Pulse Resp B/P Pulse Ox O2 Delivery O2 Flow Rate FiO2 06/08/17 13:00 84 16 97 30 06/08/17 12:05 101.9 123/73 06/08/17 00:00 Mechanical Ventilator Intake and Output 06/07/17 06/07/17 06/08/17 15:00 23:00 07:00 Intake Total 1150 ml 910 ml Output Total 1200 ml 1900 ml Balance -50 ml -990 ml Results Result Diagram: 06/08/17 1411 06/07/17 0716 Results 24 hrs Laboratory Tests Test 06/07/17 17:05 06/07/17 21:40 06/08/17 00:31 06/08/17 05:58 Bedside Glucose 100 101 97 99 Test 06/08/17 12:21 06/08/17 14:11 Bedside Glucose 101 White Blood Count 12.0 #H Red Blood Count 4.36 L Hemoglobin 9.9 L Hematocrit 30.8 L Mean Corpuscular Volume 70.6 L Mean Corpuscular Hemoglobin 22.7 L Mean Corpuscular Hemoglobin Concent 32.1 Red Cell Distribution Width 15.2 H Platelet Count 403 # Mean Platelet Volume 10.7 H Neutrophils % 78.1 H Lymphocytes % 15.2 Monocytes % 4.9 Eosinophils % 0.7 Basophils % 0.3 Nucleated Red Blood Cells % 0.0 Neutrophils # 9.4 H Lymphocytes # 1.8 Monocytes # 0.6 Eosinophils # 0.1 Basophils # 0.0 Nucleated Red Blood Cells # 0.0 Medications Medications Current Medications Hydromorphone HCl (Dilaudid) 1.5 mg ONCE PRN IV PAIN Last administered on 02:24; Admin Dose 1.5 MG; Start 05/30/17 at 02:07 Lorazepam (Ativan) 2 mg Q6H PRN PO SEIZURES Last administered on 05/30/17 09: 40; Admin Dose 2 MG; Start 05/30/17 at 02:30 Ondansetron HCl (Zofran Inj) 4 mg Q6H PRN IV NAUSEA AND/OR VOMITING; Start at 03:00 Acetaminophen (Tylenol Tab) 1,000 mg Q6H PRN PO PAIN LEVEL 6-10; Start at 03:00 Ascorbic Acid (Vitamin C) 500 mg DAILY PO Last administered on 06/08/17 09:50 ; Admin Dose 500 MG; Start 05/30/17 at 09:00 Bisacodyl (Dulcolax Supp) 10 mg DAILY [place] Last administered on 06/08/17 09:50; Admin Dose 10 MG; Start 05/30/17 at 09:00 Docusate Sodium (Colace Liquid Cup) 200 mg DAILY PO Last administered on 09:50; Admin Dose 200 MG; Start 05/30/17 at 09:00 Insulin Glargine (Lantus) 8 unit QHS SC Last administered on 06/07/17 21:49; Admin Dose 8 UNIT; Start 05/30/17 at 21:00 Multivitamins Therapeutic (Theragran) 1 tab DAILY PO Last administered on 09:50; Admin Dose 1 TAB; Start 05/30/17 at 09:00 Polyethylene Glycol (Miralax) 17 gm DAILY PO Last administered on 06/08/17 09: 50; Admin Dose 17 GM; Start 05/30/17 at 09:00 Miscellaneous Information 1 ea NOTE XX ; Start 05/30/17 at 07:30 Glucose (Glutose) 15 gm Q15M PRN PO DECREASED GLUCOSE; Start 05/30/17 at 07:30 Glucose (Glutose) 22.5 gm Q15M PRN PO DECREASED GLUCOSE; Start 05/30/17 at 07: 30 Dextrose (D50w Syringe) 25 ml Q15M PRN IV DECREASED GLUCOSE; Start 05/30/17 at 07:30 Dextrose (D50w Syringe) 50 ml Q15M PRN IV DECREASED GLUCOSE; Start 05/30/17 at 07:30 Glucagon (Glucagen) 1 mg Q15M PRN IM DECREASED GLUCOSE; Start 05/30/17 at 07:30 Glucose (Glutose) 15 gm Q15M PRN BUCCAL DECREASED GLUCOSE; Start 05/30/17 at 07 :30 Lorazepam (Ativan) 1 mg Q1H PRN IV SEIZURES Last administered on 06/08/17 14: 01; Admin Dose 1 MG; Start 05/30/17 at 15:00 IV Flush (NS 10 ml) 10 ml PRN PRN IV IV PROTOCOL; Start 05/30/17 at 18:30 Insulin Aspart (Novolog Insulin Pen) NOVOLOG *MILD* ALGORI... Q6 SC Last administered on 05/31/17 11:43; Admin Dose 1 UNIT; Start 05/31/17 at 00:00 Fish Oil (Fish Oil) 1,000 mg TID PO Last administered on 06/08/17 12:33; Admin Dose 1,000 MG; Start 05/31/17 at 10:00 Morphine Sulfate (morphine) 2 mg Q4H PRN IV breakthrough pain Last administered on 06/01/17 13:22; Admin Dose 2 MG; Start 06/01/17 at 12:00 Acetaminophen/ Hydrocodone Bitart 1 tab 1 tab Q4H PRN PO PAIN LEVEL 8-10; Start 06/01/17 at 11:30 Ertapenem/Sodium Chloride (Invanz/NS) 100 ml @ 200 mls/hr Q24H IVPB Last administered on 06/07/17 16:01; Admin Dose 200 MLS/HR; Start 06/02/17 at 17:00 Baclofen (Lioresal) 10 mg TID GTB Last administered on 06/08/17 12:33; Admin Dose 10 MG; Start 06/03/17 at 21:00 Metoprolol Tartrate (Lopressor) 25 mg BID GTB Last administered on 06/08/17 09 :51; Admin Dose 25 MG; Start 06/03/17 at 21:00 Phenobarbital (Luminal) 64.8 mg BID GTB Last administered on 06/08/17 09:50; Admin Dose 64.8 MG; Start 06/03/17 at 21:00 Enoxaparin Sodium (Lovenox) 100 mg Q24H SC Last administered on 06/08/17 13:01 ; Admin Dose 100 MG; Start 06/04/17 at 13:00 Acetaminophen (Tylenol Tab) 650 mg Q6H PRN GTB PAIN LEVEL 1-3 OR FEVER Last administered on 06/08/17 09:58; Admin Dose 650 MG; Start 06/06/17 at 09:00 Senna 5 ml 5 ml BID GTB Last administered on 06/08/17 09:50; Admin Dose 5 ML; Start 06/07/17 at 21:00 Colistimethate Sodium/Sodium Chloride (Coly-Mycin/NS) 100 ml @ 200 mls/hr Q12 IVPB Last administered on 06/08/17 09:52; Admin Dose 200 MLS/HR; Start at 21:00 MARYURI HUGHES NP Jun 08, 2017 14:37
[2017-06-08] MEDS: ERTAPENEM SODIUM 1 GM in SOD CHLORIDE 0.9% 100 ML IVPB SCH (17:26)
[2017-06-08] MEDS: LORAZEPAM 1 MG TAB PO SCH ×2 (17:27→22:08)
[2017-06-08] MEDS: INSULIN GLARGINE [LANtus] 3 ML PEN SC SCH (21:55)
[2017-06-09] VITALS (25 sets, daily range): BP systolic 115–144; BP diastolic 59–91; PULSE 87–112; RESP 14–21
[2017-06-09] MEDS: INSULIN ASPART [NOVOLOG] 3 ML PEN SC SCH ×5 (01:14→23:25)
[2017-06-09] MEDS: ALBUTEROL 18 GM INHALER INH SCH ×4 (01:15→20:15)
[2017-06-09] MEDS: IPRATROPIUM (HFA) 12.9 GM INHALER INH SCH ×4 (01:16→20:15)
[2017-06-09] MEDS: LORAZEPAM 1 MG TAB PO SCH ×4 (05:06→23:17)
[2017-06-09] MEDS: ACETAMINOPHEN 325 MG TAB GTB PRN (05:06)
[2017-06-09] MEDS: MULTIVITAMINS THERAPEUTIC TAB PO SCH (09:22)
[2017-06-09] MEDS: PHENOBARBITAL 32.4 MG TAB GTB SCH ×2 (09:23→21:44)
[2017-06-09] MEDS: BISACODYL 10 MG SUPP PR SCH (09:23)
[2017-06-09] MEDS: SENNA (PO SYG) GTB SCH ×2 (09:23→21:47)
[2017-06-09] MEDS: FISH OIL 1,000 MG CAP PO SCH ×3 (09:23→21:44)
[2017-06-09] MEDS: POLYETHYLENE GLYCOL 17 GM PACKET PO SCH (09:24)
[2017-06-09] MEDS: DOCUSATE SODIUM 10 MG/ML (10ML CUP) PO SCH (09:24)
[2017-06-09] MEDS: BALSAM PERU/CASTOR OIL 60 GM TUBE TOP SCH (09:25)
[2017-06-09] MEDS: ASCORBIC ACID 500 MG TAB PO SCH (09:35)
[2017-06-09] MEDS: COLISTIMETHATE 100 MG in SOD CHLORIDE 0.9% 100 ML IVPB SCH ×2 (09:35→21:52)
[2017-06-09] MEDS: BACLOFEN 10 MG TAB GTB SCH ×3 (09:36→21:44)
[2017-06-09] MEDS: METOPROLOL 25 MG TAB GTB SCH ×2 (09:37→21:47)
--- NOTE | 2017-06-09 11:17 | CONS ---
Date/Time of Note Date/Time of Note DATE: 06/09/17 TIME: 11:15 Assessment/Plan Assessment/Plan Additional Assessment/Plan Data setting; AC of 14, tidal volume 600, PEEP of 5, 30% FiO2. Assessment and recommendations; 1. Patient admitted with sepsis with multiple organisms grown from blood culture, clinically improved. 2. Chronic respiratory failure which is ventilator dependent. 3. History of traumatic brain injury. With severe anoxic brain injury. Continue current supportive care. Consultation Date/Type/Reason Admit Date/Time May 29, 2017 at 21:56 Initial Consult Date 05/30/17 Type of Consultation: Pulmonary 24 HR Interval Summary Free Text/Dictation Patient's condition remains stable. Remains chronically ventilator dependent. Has remained hemodynamically stable. General exam; young male, on ventilator via tracheostomy, unresponsive, currently in no distress. Exam/Review of Systems Vital Signs Vitals Vital Signs Date Time Temp Pulse Resp B/P Pulse Ox O2 Delivery O2 Flow Rate FiO2 06/09/17 08:16 99.8 95 17 126/76 100 06/09/17 05:42 30 06/08/17 00:00 Mechanical Ventilator Intake and Output 06/08/17 06/08/17 06/09/17 14:59 22:59 06:59 Intake Total 1150 ml 856 ml Output Total 1200 ml 1500 ml Balance -50 ml -644 ml Exam HEENT exam; supple neck, no JVD. No lymphadenopathy. Midline trachea. No thyromegaly. Tracheostomy in place. Patient is a fair dentition. Multiple well-healed cranial scars are present. Chest; diminished but clear breath sounds. S1-S2 audible, no murmurs. Regular rhythm. Abdomen exam; soft, nondistended. No organomegaly. G-tube in place. Bowel sounds audible. Extremity exam; no edema. Patient does have contractures involving all 4 extremities. UI APPLICATION DEVELOPER exam; patient remains unresponsive. Results Result Diagram: 06/08/17 1411 06/08/17 1411 Results 24 hrs Laboratory Tests Test 06/08/17 12:21 06/08/17 14:11 06/08/17 17:26 06/08/17 21:45 Bedside Glucose 101 103 92 White Blood Count 12.0 #H Red Blood Count 4.36 L Hemoglobin 9.9 L Hematocrit 30.8 L Mean Corpuscular Volume 70.6 L Mean Corpuscular Hemoglobin 22.7 L Mean Corpuscular Hemoglobin Concent 32.1 Red Cell Distribution Width 15.2 H Platelet Count 403 # Mean Platelet Volume 10.7 H Neutrophils % 78.1 H Lymphocytes % 15.2 Monocytes % 4.9 Eosinophils % 0.7 Basophils % 0.3 Nucleated Red Blood Cells % 0.0 Neutrophils # 9.4 H Lymphocytes # 1.8 Monocytes # 0.6 Eosinophils # 0.1 Basophils # 0.0 Nucleated Red Blood Cells # 0.0 Sodium Level 128 L Potassium Level 4.8 Chloride Level 96 L Carbon Dioxide Level 22 Anion Gap 15 Blood Urea Nitrogen 12 Creatinine 0.46 L Glucose Level 106 Calcium Level 8.8 Test 06/09/17 00:47 06/09/17 05:55 Bedside Glucose 101 98 Medications Medications Current Medications Hydromorphone HCl (Dilaudid) 1.5 mg ONCE PRN IV PAIN Last administered on 02:24; Admin Dose 1.5 MG; Start 05/30/17 at 02:07 Lorazepam (Ativan) 2 mg Q6H PRN PO SEIZURES Last administered on 05/30/17 09: 40; Admin Dose 2 MG; Start 05/30/17 at 02:30 Ondansetron HCl (Zofran Inj) 4 mg Q6H PRN IV NAUSEA AND/OR VOMITING; Start at 03:00 Acetaminophen (Tylenol Tab) 1,000 mg Q6H PRN PO PAIN LEVEL 6-10; Start at 03:00 Ascorbic Acid (Vitamin C) 500 mg DAILY PO Last administered on 06/09/17 09:35 ; Admin Dose 500 MG; Start 05/30/17 at 09:00 Bisacodyl (Dulcolax Supp) 10 mg DAILY MS Last administered on 06/09/17 09:23; Admin Dose 10 MG; Start 05/30/17 at 09:00 Docusate Sodium (Colace Liquid Cup) 200 mg DAILY PO Last administered on 09:24; Admin Dose 200 MG; Start 05/30/17 at 09:00 Insulin Glargine (Lantus) 8 unit QHS SC Last administered on 06/08/17 21:55; Admin Dose 8 UNIT; Start 05/30/17 at 21:00 Multivitamins Therapeutic (Theragran) 1 tab DAILY PO Last administered on 09:22; Admin Dose 1 TAB; Start 05/30/17 at 09:00 Polyethylene Glycol (Miralax) 17 gm DAILY PO Last administered on 06/09/17 09: 24; Admin Dose 17 GM; Start 05/30/17 at 09:00 Miscellaneous Information 1 ea NOTE XX ; Start 05/30/17 at 07:30 Glucose (Glutose) 15 gm Q15M PRN PO DECREASED GLUCOSE; Start 05/30/17 at 07:30 Glucose (Glutose) 22.5 gm Q15M PRN PO DECREASED GLUCOSE; Start 05/30/17 at 07: 30 Dextrose (D50w Syringe) 25 ml Q15M PRN IV DECREASED GLUCOSE; Start 05/30/17 at 07:30 Dextrose (D50w Syringe) 50 ml Q15M PRN IV DECREASED GLUCOSE; Start 05/30/17 at 07:30 Glucagon (Glucagen) 1 mg Q15M PRN IM DECREASED GLUCOSE; Start 05/30/17 at 07:30 Glucose (Glutose) 15 gm Q15M PRN BUCCAL DECREASED GLUCOSE; Start 05/30/17 at 07 :30 Lorazepam (Ativan) 1 mg Q1H PRN IV SEIZURES Last administered on 06/08/17 14: 01; Admin Dose 1 MG; Start 05/30/17 at 15:00 IV Flush (NS 10 ml) 10 ml PRN PRN IV IV PROTOCOL; Start 05/30/17 at 18:30 Insulin Aspart (Novolog Insulin Pen) NOVOLOG *MILD* ALGORI... Q6 SC Last administered on 05/31/17 11:43; Admin Dose 1 UNIT; Start 05/31/17 at 00:00 Fish Oil (Fish Oil) 1,000 mg TID PO Last administered on 06/09/17 09:23; Admin Dose 1,000 MG; Start 05/31/17 at 10:00 Morphine Sulfate (morphine) 2 mg Q4H PRN IV breakthrough pain Last administered on 06/01/17 13:22; Admin Dose 2 MG; Start 06/01/17 at 12:00 Acetaminophen/ Hydrocodone Bitart 1 tab 1 tab Q4H PRN PO PAIN LEVEL 8-10; Start 06/01/17 at 11:30 Ertapenem/Sodium Chloride (Invanz/NS) 100 ml @ 200 mls/hr Q24H IVPB Last administered on 06/08/17 17:26; Admin Dose 200 MLS/HR; Start 06/02/17 at 17:00 Baclofen (Lioresal) 10 mg TID GTB Last administered on 06/09/17 09:36; Admin Dose 10 MG; Start 06/03/17 at 21:00 Metoprolol Tartrate (Lopressor) 25 mg BID GTB Last administered on 06/09/17 09 :37; Admin Dose 25 MG; Start 06/03/17 at 21:00 Phenobarbital (Luminal) 64.8 mg BID GTB Last administered on 06/09/17 09:23; Admin Dose 64.8 MG; Start 06/03/17 at 21:00 Enoxaparin Sodium (Lovenox) 100 mg Q24H SC Last administered on 06/08/17 13:01 ; Admin Dose 100 MG; Start 06/04/17 at 13:00 Acetaminophen (Tylenol Tab) 650 mg Q6H PRN GTB PAIN LEVEL 1-3 OR FEVER Last administered on 06/09/17 05:06; Admin Dose 650 MG; Start 06/06/17 at 09:00 Senna 5 ml 5 ml BID GTB Last administered on 06/09/17 09:23; Admin Dose 5 ML; Start 06/07/17 at 21:00 Colistimethate Sodium/Sodium Chloride (Coly-Mycin/NS) 100 ml @ 200 mls/hr Q12 IVPB Last administered on 06/09/17 09:35; Admin Dose 200 MLS/HR; Start at 21:00 Lorazepam (Ativan) 2 mg Q6H PO Last administered on 06/09/17 11:08; Admin Dose 2 MG; Start 06/08/17 at 17:00 DONOVAN NULL Jun 09, 2017 11:17
[2017-06-09] MEDS: ENOXAPARIN 100 MG/ML SYG SC SCH (12:44)
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
[2017-06-09 15:08] LABS: BASOPHILS % 0.4 % (0.0-2.0); EOSINOPHILS # 0.2 10^3/ul (0.0-0.5); EOSINOPHILS % 2.3 % (0.0-7.0); HEMATOCRIT 29.7 % (42.0-52.0); HEMOGLOBIN 9.6 g/dl (14.0-18.0); LYMPHOCYTES # 2.9 10^3/ul (0.8-2.9); LYMPHOCYTES % 28.8 % (15.0-51.0); MEAN CORPUSCULAR HEMOGLOBIN 22.6 pg (29.0-33.0); MEAN CORPUSCULAR HGB CONC 32.3 g/dl (32.0-37.0); MEAN PLATELET VOLUME 11.1 fl (7.4-10.4); MONOCYTE # 0.7 10^3/ul (0.3-0.9); MONOCYTES % 6.6 % (0.0-11.0); NEUTROPHIL # 6.1 10^3/ul (1.6-7.5); NEUTROPHILS % 61.2 % (39.0-77.0); PLATELET COUNT 429 10^3/UL (140-415); POSITIVE DIFF @See below; RED BLOOD COUNT 4.24 10^6/ul (4.70-6.10)
[2017-06-09 15:28] LABS: CALCIUM 8.8 mg/dl (8.4-10.2); CREATININE 0.41 mg/dl (0.61-1.24); POTASSIUM 4.3 mmol/L (3.5-5.1)
--- NOTE | 2017-06-09 16:34 | RADRPT ---
PROCEDURE: XR Chest. CLINICAL INDICATION: Shortness of breath. TECHNIQUE: Single frontal view. COMPARISON: 05/30/2017. FINDINGS: The right arm PICC line tip is in the right subclavian vein. Tracheostomy tube is in the midline. Le ft IJ catheter tip is in the lower left internal jugular vein. There is atelectasis at the lung base s, improved. The lungs are otherwise clear. The heart is enlarged. There is a small right pleural effusion and no left pleural effusion. There is no pneumothorax. IMPRESSION: 1. Improved appearance of the lung bases. 2. No other change from 05/30/2017. RPTAT: QQ .Quirino Valera MD, MD Date Time Electronically viewed and signed by .Quirino Valera MD, on 06/09/2017 16:34 .R/
--- NOTE | 2017-06-09 17:23 | PN ---
DATE: 06/09/2017 SUBJECTIVE DATA: No acute changes. Patient is spiking fevers, with a T-max yesterday 101.9, T-current 100, pulse 101, respirations 16, blood pressure 132/78, saturation 100 on 30 FiO2. LABORATORY AND DIAGNOSTIC DATA: WBC yesterday was 12. No labs this morning. MICROBIOLOGY: Blood culture on admission grew E coli, ESBL. Repeat blood culture on June 04 grew multidrug-resistant Klebsiella pneumoniae. Repeat blood culture and urine culture since June 05 negative. DIAGNOSTICS: No new labs. ANTIMICROBIALS: Patient is on IV Colistin, Invanz. INDWELLINGS: Trach, PEG, and Rodriguez. Patient also has PICC line placed on May 30. PHYSICAL EXAMINATION: GENERAL: This is a chronically ill-appearing, obese, middle-aged vegetative man, who is in no distress. HEENT: Head atraumatic, normocephalic. Sclerae anicteric. Buccal mucosa dry. NECK: Supple. Tracheostomy present. CHEST: Rise symmetrical. Breath sounds diminished at the bases. HEART: S1, S2. ABDOMEN: Soft, bowel sounds present. EXTREMITIES: With bilateral edema. ASSESSMENT: 1. Ongoing fevers, etiology unclear, rule out pneumonia. 2. Status post Escherichia coli extended-spectrum beta- lactamase urinary tract infection, with bacteremia. Repeat blood culture on June 04 grew multidrug-resistant Klebsiella pneumoniae. Patient was started on colistin, repeat blood cultures being negative. 3. Quadriplegia. 4. Persistent vegetative state. 5. Diabetes. 6. Left subclavian deep venous thrombosis. PLAN: We are going to repeat cultures and chest x-ray. Continue antibiotics. Monitor renal function. Follow Urology recommendations and recommendations of other consultants. Dictated By: Chau Swartz NP [email or web address] /Document#: [id number]
[2017-06-09] MEDS: FERROUS SULFATE (EC) 325 MG TAB PO SCH ×2 (17:34→21:44)
[2017-06-09] MEDS: ERTAPENEM SODIUM 1 GM in SOD CHLORIDE 0.9% 100 ML IVPB SCH (17:35)
[2017-06-09] MEDS: INSULIN GLARGINE [LANtus] 3 ML PEN SC SCH (22:08)
[2017-06-10] VITALS (24 sets, daily range): BP systolic 102–118; BP diastolic 57–72; PULSE 95–112; RESP 14–21
[2017-06-10] MEDS: ALBUTEROL 18 GM INHALER INH SCH ×4 (01:31→19:18)
[2017-06-10] MEDS: IPRATROPIUM (HFA) 12.9 GM INHALER INH SCH ×4 (01:31→19:18)
[2017-06-10] MEDS: INSULIN ASPART [NOVOLOG] 3 ML PEN SC SCH ×4 (05:10→23:29)
[2017-06-10] MEDS: LORAZEPAM 1 MG TAB PO SCH ×4 (05:11→23:16)
[2017-06-10 08:03] LABS: BASOPHILS % 0.4 % (0.0-2.0); EOSINOPHILS # 0.2 10^3/ul (0.0-0.5); EOSINOPHILS % 2.4 % (0.0-7.0); HEMOGLOBIN 9.9 g/dl (14.0-18.0); LYMPHOCYTES # 2.1 10^3/ul (0.8-2.9); LYMPHOCYTES % 22.9 % (15.0-51.0); MEAN CORPUSCULAR HEMOGLOBIN 22.5 pg (29.0-33.0); MEAN CORPUSCULAR HGB CONC 31.9 g/dl (32.0-37.0); MEAN CORPUSCULAR VOLUME 70.5 fl (82.0-101.0); MEAN PLATELET VOLUME 11.2 fl (7.4-10.4); MONOCYTE # 0.6 10^3/ul (0.3-0.9); NEUTROPHIL # 6.1 10^3/ul (1.6-7.5); NEUTROPHILS % 66.8 % (39.0-77.0); PLATELET COUNT 441 10^3/UL (140-415); RED CELL DISTRIBUTION WIDTH 15.1 % (11.5-14.5); WHITE BLOOD COUNT 9.1 10^3/ul (4.8-10.8)
[2017-06-10 08:38] LABS: CALCIUM 8.8 mg/dl (8.4-10.2); CREATININE 0.42 mg/dl (0.61-1.24); MAGNESIUM 1.4 mg/dl (1.7-2.5); PHOSPHORUS 4.5 mg/dl (2.5-4.9); POTASSIUM 4.5 mmol/L (3.5-5.1)
[2017-06-10] MEDS: POLYETHYLENE GLYCOL 17 GM PACKET PO SCH (09:50)
[2017-06-10] MEDS: DOCUSATE SODIUM 10 MG/ML (10ML CUP) PO SCH (09:50)
[2017-06-10] MEDS: MULTIVITAMINS THERAPEUTIC TAB PO SCH (09:51)
[2017-06-10] MEDS: FISH OIL 1,000 MG CAP PO SCH ×3 (09:51→20:46)
[2017-06-10] MEDS: BISACODYL 10 MG SUPP PR SCH (09:51)
[2017-06-10] MEDS: PHENOBARBITAL 32.4 MG TAB GTB SCH ×2 (09:51→21:08)
[2017-06-10] MEDS: ASCORBIC ACID 500 MG TAB PO SCH (09:51)
[2017-06-10] MEDS: METOPROLOL 25 MG TAB GTB SCH ×2 (09:51→20:47)
[2017-06-10] MEDS: SENNA (PO SYG) GTB SCH ×2 (09:51→20:48)
[2017-06-10] MEDS: BACLOFEN 10 MG TAB GTB SCH ×3 (09:51→20:46)
[2017-06-10] MEDS: FERROUS SULFATE (EC) 325 MG TAB PO SCH ×2 (09:52→20:46)
[2017-06-10] MEDS: BALSAM PERU/CASTOR OIL 60 GM TUBE TOP SCH (09:52)
[2017-06-10] MEDS: COLISTIMETHATE 100 MG in SOD CHLORIDE 0.9% 100 ML IVPB SCH ×2 (09:54→20:48)
--- NOTE | 2017-06-10 10:24 | CONS ---
Date/Time of Note Date/Time of Note DATE: 06/10/17 TIME: 10:22 Assessment/Plan Assessment/Plan Additional Assessment/Plan Ventilator setting; AC of 14, tidal volume 600, PEEP of 5, 30% FiO2. Assessment and recommendations; 1. Patient admitted with sepsis due to gram-negative and gram-positive bacteremia currently on appropriate antibiotic regimen with significant clinical improvement. 2. Chronic respiratory failure due to traumatic brain injury with severe anoxic encephalopathy. Continue current treatment. Consultation Date/Type/Reason Admit Date/Time May 29, 2017 at 21:56 Initial Consult Date 05/30/17 Type of Consultation: Pulmonary 24 HR Interval Summary Free Text/Dictation Patient's condition remains stable. Has remained hemodynamically stable. Remains awake but unresponsive to any commands. Also remains chronically ventilator dependent. General exam; young male, on ventilator via tracheostomy, awake, unresponsive to any commands, currently no distress. Exam/Review of Systems Vital Signs Vitals Vital Signs Date Time Temp Pulse Resp B/P Pulse Ox O2 Delivery O2 Flow Rate FiO2 06/10/17 09:00 111 14 98 30 06/10/17 07:41 98.6 117/68 06/09/17 20:00 Mechanical Ventilator Intake and Output 06/09/17 06/09/17 06/10/17 15:00 23:00 07:00 Intake Total 100 ml 1150 ml 800 ml Output Total 850 ml 1500 ml Balance 100 ml 300 ml -700 ml Exam HEENT exam; supple neck, no JVD. No lymphadenopathy. Midline trachea. No thyromegaly. Patient has fair dentition. Multiple well-healed cranial scars are present. Tracheostomy in place with clean insertion site. Chest exam; diminished but clear breath sounds. S1-S2 audible, no murmurs. Regular rhythm. Abdomen exam; soft, G-tube in place. Nondistended. Bowel sounds audible. Extremity exam; no edema. Patient does have contractures involving all 4 extremities. STRATEGIC DEVELOPMENT MANAGER exam; patient is awake but does not follow any commands. Results Result Diagram: 06/10/17 0721 06/10/17 0721 Results 24 hrs Laboratory Tests Test 06/09/17 12:05 06/09/17 14:29 06/09/17 14:30 06/09/17 17:28 Bedside Glucose 96 95 Sodium Level 127 L Potassium Level 4.3 Chloride Level 93 L Carbon Dioxide Level 26 Anion Gap 12 Blood Urea Nitrogen 13 Creatinine 0.41 L Glucose Level 84 Calcium Level 8.8 White Blood Count 10.0 Red Blood Count 4.24 L Hemoglobin 9.6 L Hematocrit 29.7 L Mean Corpuscular Volume 70.0 L Mean Corpuscular Hemoglobin 22.6 L Mean Corpuscular Hemoglobin Concent 32.3 Red Cell Distribution Width 15.0 H Platelet Count 429 H Mean Platelet Volume 11.1 H Neutrophils % 61.2 Lymphocytes % 28.8 Monocytes % 6.6 Eosinophils % 2.3 Basophils % 0.4 Nucleated Red Blood Cells % 0.0 Neutrophils # 6.1 Lymphocytes # 2.9 Monocytes # 0.7 Eosinophils # 0.2 Basophils # 0.0 Nucleated Red Blood Cells # 0.0 Test 06/09/17 22:03 06/09/17 23:24 06/10/17 05:09 06/10/17 07:21 Bedside Glucose 93 100 107 White Blood Count 9.1 Red Blood Count 4.40 L Hemoglobin 9.9 L Hematocrit 31.0 L Mean Corpuscular Volume 70.5 L Mean Corpuscular Hemoglobin 22.5 L Mean Corpuscular Hemoglobin Concent 31.9 L Red Cell Distribution Width 15.1 H Platelet Count 441 H Mean Platelet Volume 11.2 H Neutrophils % 66.8 Lymphocytes % 22.9 Monocytes % 7.0 Eosinophils % 2.4 Basophils % 0.4 Nucleated Red Blood Cells % 0.0 Neutrophils # 6.1 Lymphocytes # 2.1 Monocytes # 0.6 Eosinophils # 0.2 Basophils # 0.0 Nucleated Red Blood Cells # 0.0 Sodium Level 125 L Potassium Level 4.5 Chloride Level 93 L Carbon Dioxide Level 25 Anion Gap 12 Blood Urea Nitrogen 15 Creatinine 0.42 L Glucose Level 91 Calcium Level 8.8 Phosphorus Level 4.5 Magnesium Level 1.4 L Medications Medications Current Medications Hydromorphone HCl (Dilaudid) 1.5 mg ONCE PRN IV PAIN Last administered on 02:24; Admin Dose 1.5 MG; Start 05/30/17 at 02:07 Lorazepam (Ativan) 2 mg Q6H PRN PO SEIZURES Last administered on 05/30/17 09: 40; Admin Dose 2 MG; Start 05/30/17 at 02:30 Ondansetron HCl (Zofran Inj) 4 mg Q6H PRN IV NAUSEA AND/OR VOMITING; Start at 03:00 Acetaminophen (Tylenol Tab) 1,000 mg Q6H PRN PO PAIN LEVEL 6-10; Start at 03:00 Ascorbic Acid (Vitamin C) 500 mg DAILY PO Last administered on 06/10/17 09:51 ; Admin Dose 500 MG; Start 05/30/17 at 09:00 Bisacodyl (Dulcolax Supp) 10 mg DAILY HI Last administered on 06/10/17 09:51; Admin Dose 10 MG; Start 05/30/17 at 09:00 Docusate Sodium (Colace Liquid Cup) 200 mg DAILY PO Last administered on 09:50; Admin Dose 200 MG; Start 05/30/17 at 09:00 Insulin Glargine (Lantus) 8 unit QHS SC Last administered on 06/09/17 22:08; Admin Dose 8 UNIT; Start 05/30/17 at 21:00 Multivitamins Therapeutic (Theragran) 1 tab DAILY PO Last administered on 09:51; Admin Dose 1 TAB; Start 05/30/17 at 09:00 Polyethylene Glycol (Miralax) 17 gm DAILY PO Last administered on 06/10/17 09: 50; Admin Dose 17 GM; Start 05/30/17 at 09:00 Miscellaneous Information 1 ea NOTE XX ; Start 05/30/17 at 07:30 Glucose (Glutose) 15 gm Q15M PRN PO DECREASED GLUCOSE; Start 05/30/17 at 07:30 Glucose (Glutose) 22.5 gm Q15M PRN PO DECREASED GLUCOSE; Start 05/30/17 at 07: 30 Dextrose (D50w Syringe) 25 ml Q15M PRN IV DECREASED GLUCOSE; Start 05/30/17 at 07:30 Dextrose (D50w Syringe) 50 ml Q15M PRN IV DECREASED GLUCOSE; Start 05/30/17 at 07:30 Glucagon (Glucagen) 1 mg Q15M PRN IM DECREASED GLUCOSE; Start 05/30/17 at 07:30 Glucose (Glutose) 15 gm Q15M PRN BUCCAL DECREASED GLUCOSE; Start 05/30/17 at 07 :30 Lorazepam (Ativan) 1 mg Q1H PRN IV SEIZURES Last administered on 06/08/17 14: 01; Admin Dose 1 MG; Start 05/30/17 at 15:00 IV Flush (NS 10 ml) 10 ml PRN PRN IV IV PROTOCOL; Start 05/30/17 at 18:30 Insulin Aspart (Novolog Insulin Pen) NOVOLOG *MILD* ALGORI... Q6 SC Last administered on 05/31/17 11:43; Admin Dose 1 UNIT; Start 05/31/17 at 00:00 Fish Oil (Fish Oil) 1,000 mg TID PO Last administered on 06/10/17 09:51; Admin Dose 1,000 MG; Start 05/31/17 at 10:00 Morphine Sulfate (morphine) 2 mg Q4H PRN IV breakthrough pain Last administered on 06/01/17 13:22; Admin Dose 2 MG; Start 06/01/17 at 12:00 Acetaminophen/ Hydrocodone Bitart 1 tab 1 tab Q4H PRN PO PAIN LEVEL 8-10; Start 06/01/17 at 11:30 Ertapenem/Sodium Chloride (Invanz/NS) 100 ml @ 200 mls/hr Q24H IVPB Last administered on 06/09/17 17:35; Admin Dose 200 MLS/HR; Start 06/02/17 at 17:00 Baclofen (Lioresal) 10 mg TID GTB Last administered on 06/10/17 09:51; Admin Dose 10 MG; Start 06/03/17 at 21:00 Metoprolol Tartrate (Lopressor) 25 mg BID GTB Last administered on 06/10/17 09 :51; Admin Dose 25 MG; Start 06/03/17 at 21:00 Phenobarbital (Luminal) 64.8 mg BID GTB Last administered on 06/10/17 09:51; Admin Dose 64.8 MG; Start 06/03/17 at 21:00 Enoxaparin Sodium (Lovenox) 100 mg Q24H SC Last administered on 06/09/17 12:44 ; Admin Dose 100 MG; Start 06/04/17 at 13:00 Acetaminophen (Tylenol Tab) 650 mg Q6H PRN GTB PAIN LEVEL 1-3 OR FEVER Last administered on 06/09/17 05:06; Admin Dose 650 MG; Start 06/06/17 at 09:00 Senna 5 ml 5 ml BID GTB Last administered on 06/10/17 09:51; Admin Dose 5 ML; Start 06/07/17 at 21:00 Colistimethate Sodium/Sodium Chloride (Coly-Mycin/NS) 100 ml @ 200 mls/hr Q12 IVPB Last administered on 06/10/17 09:54; Admin Dose 200 MLS/HR; Start at 21:00 Lorazepam (Ativan) 2 mg Q6H PO Last administered on 06/10/17 10:01; Admin Dose 2 MG; Start 06/08/17 at 17:00 Ferrous Sulfate (Ferrous Sulfate (Ec)) 325 mg BID PO Last administered on 09:52; Admin Dose 325 MG; Start 06/09/17 at 14:30 DONOVAN NULL Jun 10, 2017 10:24
[2017-06-10] MEDS: ENOXAPARIN 100 MG/ML SYG SC SCH (12:18)
[2017-06-10] MEDS: ACETAMINOPHEN 325 MG TAB GTB PRN (12:18)
[2017-06-10 12:37] LABS: ADD UMIC YES; UR ASCORBIC ACID NEGATIVE (NEGATIVE); UR BILIRUBIN (Dip) NEGATIVE (NEGATIVE); UR BLOOD (Dip) 3+ mg/dL (NEGATIVE); UR CLARITY SLIGHTLY CLOUDY (CLEAR); UR COLOR YELLOW (YELLOW); UR GLUCOSE (Dip) NEGATIVE (NEGATIVE); UR KETONES (Dip) NEGATIVE (NEGATIVE); UR LEUKOCYTE ESTERASE (Dip) TRACE Leu/ul (NEGATIVE); UR NITRITE (Dip) NEGATIVE (NEGATIVE); UR RBC > 182 /HPF (0-5); UR SPECIFIC GRAVITY (Dip) 1.013 (1.003-1.030); UR TOTAL PROTEIN (Dip) 3+ mg/dl (NEGATIVE); UR UROBILINOGEN (Dip) 2+ mg/dL (NEGATIVE)
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
[2017-06-10] MEDS ORDERED: MAGNESIUM SULFATE 3 GM in SOD CHLORIDE 0.9% 100 ML IVPB ONE (13:00)
[2017-06-10 13:17] LABS: ADD UMIC YES; UR ASCORBIC ACID 40 mg/dL (NEGATIVE); UR BILIRUBIN (Dip) NEGATIVE (NEGATIVE); UR BLOOD (Dip) 3+ mg/dL (NEGATIVE); UR CLARITY SLIGHTLY CLOUDY (CLEAR); UR COLOR AMBER (YELLOW); UR GLUCOSE (Dip) NEGATIVE (NEGATIVE); UR KETONES (Dip) NEGATIVE (NEGATIVE); UR LEUKOCYTE ESTERASE (Dip) TRACE Leu/ul (NEGATIVE); UR MUCUS FEW /HPF (NONE SEEN); UR NITRITE (Dip) NEGATIVE (NEGATIVE); UR RBC 178 /HPF (0-5); UR SPECIFIC GRAVITY (Dip) 1.015 (1.003-1.030); UR SQUAMOUS EPITHELIAL CELL FEW /HPF (FEW); UR TOTAL PROTEIN (Dip) 3+ mg/dl (NEGATIVE); UR UROBILINOGEN (Dip) 2+ mg/dL (NEGATIVE)
[2017-06-10] MEDS: SODIUM CHLORIDE 1 GM TAB PO SCH ×2 (14:17→21:08)
--- NOTE | 2017-06-10 14:19 | PDOCDIS ---
Discharge Instructions CONDITION Patient Condition: Stable HOME CARE INSTRUCTIONS: Special Diet: THERESA POWELL Jun 10, 2017 14:19
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
[2017-06-10] MEDS: ERTAPENEM SODIUM 1 GM in SOD CHLORIDE 0.9% 100 ML IVPB SCH (17:28)
[2017-06-10] MEDS: INSULIN GLARGINE [LANtus] 3 ML PEN SC SCH (20:56)
--- NOTE | 2017-06-10 22:00 | CONS ---
Date/Time of Note Date/Time of Note DATE: 06/10/17 TIME: 21:57 Assessment/Plan Assessment/Plan Chief Complaint/Hosp Course SUBJECTIVE DATA: Low grade fevers, nad, looks comfortable, no v/d Blood cultures repeated on June 04 + MDR Kleb Antimicrobials patient is on IV vancomycin and Invanz INDWELLINGS: Trach, PEG, Rodriguez, PICC line. OBJECTIVE DATA: GENERAL: Chronically ill-appearing, middle-aged man, who is in persistent vegetative state. HEENT: Head atraumatic, normocephalic. Sclerae anicteric. NECK: Obese. CHEST: Rise symmetrical. Breath sounds diminished at the bases. HEART: S1, S2. ABDOMEN: Soft, bowel sounds present. EXTREMITIES: With bilateral edema. ASSESSMENT: 1. Sepsis with bacteremia 2. Escherichia coli extended-spectrum beta-lactamase urinary tract infection. 3. Chronic respiratory failure. 4. Anoxic brain injury. 5. Diabetes. 6. Left subclavian DVT 7. Coag negative staph bacteremia, consistent with contaminant PLAN: Clinically unchanged, repeat bld and urine cx negative, dc Invanz, complete 7 more days treatment with Colistin, monitor kidney f-n Problems: Consultation Date/Type/Reason Admit Date/Time May 29, 2017 at 21:56 Initial Consult Date 05/30/17 Type of Consultation: id Exam/Review of Systems Vital Signs Vitals Vital Signs Date Time Temp Pulse Resp B/P Pulse Ox O2 Delivery O2 Flow Rate FiO2 06/10/17 21:51 107 16 98 30 06/10/17 20:13 99.4 114/66 06/09/17 20:00 Mechanical Ventilator Intake and Output 06/09/17 06/09/17 06/10/17 15:00 23:00 07:00 Intake Total 100 ml 1150 ml 800 ml Output Total 850 ml 1500 ml Balance 100 ml 300 ml -700 ml Results Result Diagram: 06/10/17 0706/10/17720 Results 24 hrs Laboratory Tests Test 06/09/17 22:03 06/09/17 23:24 06/10/17 02:25 06/10/17 05:09 Bedside Glucose 93 100 107 Urine Color YELLOW Urine Clarity SLIGHTLY CLOUDY A Urine pH 8.0 Urine Specific [place] 1.013 Urine Ketones NEGATIVE Urine Nitrite NEGATIVE Urine Bilirubin NEGATIVE Urine Urobilinogen 2+ H Urine Leukocyte Esterase TRACE A Urine Microscopic RBC > 182 H Urine Microscopic WBC 40 H Urine Hemoglobin 3+ H Urine Glucose NEGATIVE Urine Total Protein 3+ H Test 06/10/17 07:21 06/10/17 11:57 06/10/17 12:55 06/10/17 17:04 White Blood Count 9.1 Red Blood Count 4.40 L Hemoglobin 9.9 L Hematocrit 31.0 L Mean Corpuscular Volume 70.5 L Mean Corpuscular Hemoglobin 22.5 L Mean Corpuscular Hemoglobin Concent 31.9 L Red Cell Distribution Width 15.1 H Platelet Count 441 H Mean Platelet Volume 11.2 H Neutrophils % 66.8 Lymphocytes % 22.9 Monocytes % 7.0 Eosinophils % 2.4 Basophils % 0.4 Nucleated Red Blood Cells % 0.0 Neutrophils # 6.1 Lymphocytes # 2.1 Monocytes # 0.6 Eosinophils # 0.2 Basophils # 0.0 Nucleated Red Blood Cells # 0.0 Sodium Level 125 L Potassium Level 4.5 Chloride Level 93 L Carbon Dioxide Level 25 Anion Gap 12 Blood Urea Nitrogen 15 Creatinine 0.42 L Glucose Level 91 Calcium Level 8.8 Phosphorus Level 4.5 Magnesium Level 1.4 L Bedside Glucose 97 95 Urine Color SHAYAN Urine Clarity SLIGHTLY CLOUDY A Urine pH 6.0 Urine Specific [place] 1.015 Urine Ketones NEGATIVE Urine Nitrite NEGATIVE Urine Bilirubin NEGATIVE Urine Urobilinogen 2+ H Urine Leukocyte Esterase TRACE A Urine Microscopic RBC 178 H Urine Microscopic WBC 17 H Urine Squamous Epithelial Cells FEW Urine Mucus FEW A Urine Hemoglobin 3+ H Urine Glucose NEGATIVE Urine Total Protein 3+ H Test 06/10/17 20:52 Bedside Glucose 99 Medications Medications Current Medications Hydromorphone HCl (Dilaudid) 1.5 mg ONCE PRN IV PAIN Last administered on 02:24; Admin Dose 1.5 MG; Start 05/30/17 at 02:07 Lorazepam (Ativan) 2 mg Q6H PRN PO SEIZURES Last administered on 05/30/17 09: 40; Admin Dose 2 MG; Start 05/30/17 at 02:30 Ondansetron HCl (Zofran Inj) 4 mg Q6H PRN IV NAUSEA AND/OR VOMITING; Start at 03:00 Acetaminophen (Tylenol Tab) 1,000 mg Q6H PRN PO PAIN LEVEL 6-10; Start at 03:00 Ascorbic Acid (Vitamin C) 500 mg DAILY PO Last administered on 06/10/17 09:51 ; Admin Dose 500 MG; Start 05/30/17 at 09:00 Bisacodyl (Dulcolax Supp) 10 mg DAILY [place] Last administered on 06/10/17 09:51; Admin Dose 10 MG; Start 05/30/17 at 09:00 Docusate Sodium (Colace Liquid Cup) 200 mg DAILY PO Last administered on 09:50; Admin Dose 200 MG; Start 05/30/17 at 09:00 Insulin Glargine (Lantus) 8 unit QHS SC Last administered on 06/10/17 20:56; Admin Dose 8 UNIT; Start 05/30/17 at 21:00 Multivitamins Therapeutic (Theragran) 1 tab DAILY PO Last administered on 09:51; Admin Dose 1 TAB; Start 05/30/17 at 09:00 Polyethylene Glycol (Miralax) 17 gm DAILY PO Last administered on 06/10/17 09: 50; Admin Dose 17 GM; Start 05/30/17 at 09:00 Miscellaneous Information 1 ea NOTE XX ; Start 05/30/17 at 07:30 Glucose (Glutose) 15 gm Q15M PRN PO DECREASED GLUCOSE; Start 05/30/17 at 07:30 Glucose (Glutose) 22.5 gm Q15M PRN PO DECREASED GLUCOSE; Start 05/30/17 at 07: 30 Dextrose (D50w Syringe) 25 ml Q15M PRN IV DECREASED GLUCOSE; Start 05/30/17 at 07:30 Dextrose (D50w Syringe) 50 ml Q15M PRN IV DECREASED GLUCOSE; Start 05/30/17 at 07:30 Glucagon (Glucagen) 1 mg Q15M PRN IM DECREASED GLUCOSE; Start 05/30/17 at 07:30 Glucose (Glutose) 15 gm Q15M PRN BUCCAL DECREASED GLUCOSE; Start 05/30/17 at 07 :30 Lorazepam (Ativan) 1 mg Q1H PRN IV SEIZURES Last administered on 06/08/17 14: 01; Admin Dose 1 MG; Start 05/30/17 at 15:00 IV Flush (NS 10 ml) 10 ml PRN PRN IV IV PROTOCOL; Start 05/30/17 at 18:30 Insulin Aspart (Novolog Insulin Pen) NOVOLOG *MILD* ALGORI... Q6 SC Last administered on 05/31/17 11:43; Admin Dose 1 UNIT; Start 05/31/17 at 00:00 Fish Oil (Fish Oil) 1,000 mg TID PO Last administered on 06/10/17 20:46; Admin Dose 1,000 MG; Start 05/31/17 at 10:00 Morphine Sulfate (morphine) 2 mg Q4H PRN IV breakthrough pain Last administered on 06/01/17 13:22; Admin Dose 2 MG; Start 06/01/17 at 12:00 Acetaminophen/ Hydrocodone Bitart 1 tab 1 tab Q4H PRN PO PAIN LEVEL 8-10; Start 06/01/17 at 11:30 Ertapenem/Sodium Chloride (Invanz/NS) 100 ml @ 200 mls/hr Q24H IVPB Last administered on 06/10/17 17:28; Admin Dose 200 MLS/HR; Start 06/02/17 at 17:00 Baclofen (Lioresal) 10 mg TID GTB Last administered on 06/10/17 20:46; Admin Dose 10 MG; Start 06/03/17 at 21:00 Metoprolol Tartrate (Lopressor) 25 mg BID GTB Last administered on 06/10/17 20 :47; Admin Dose 25 MG; Start 06/03/17 at 21:00 Phenobarbital (Luminal) 64.8 mg BID GTB Last administered on 06/10/17 21:08; Admin Dose 64.8 MG; Start 06/03/17 at 21:00 Enoxaparin Sodium (Lovenox) 100 mg Q24H SC Last administered on 06/10/17 12:18 ; Admin Dose 100 MG; Start 06/04/17 at 13:00 Acetaminophen (Tylenol Tab) 650 mg Q6H PRN GTB PAIN LEVEL 1-3 OR FEVER Last administered on 06/10/17 12:18; Admin Dose 650 MG; Start 06/06/17 at 09:00 Senna 5 ml 5 ml BID GTB Last administered on 06/10/17 20:48; Admin Dose 5 ML; Start 06/07/17 at 21:00 Colistimethate Sodium/Sodium Chloride (Coly-Mycin/NS) 100 ml @ 200 mls/hr Q12 IVPB Last administered on 06/10/17 20:48; Admin Dose 200 MLS/HR; Start at 21:00 Lorazepam (Ativan) 2 mg Q6H PO Last administered on 06/10/17 17:28; Admin Dose 2 MG; Start 06/08/17 at 17:00 Ferrous Sulfate (Ferrous Sulfate (Ec)) 325 mg BID PO Last administered on 20:46; Admin Dose 325 MG; Start 06/09/17 at 14:30 Sodium Chloride (Nacl) 1 gm TID PO Last administered on 06/10/17 21:08; Admin Dose 1 GM; Start 06/10/17 at 13:00 MIKE TRACY NP Jun 10, 2017 22:00
[2017-06-11] VITALS (18 sets, daily range): BP systolic 119–146; BP diastolic 61–72; PULSE 94–105; RESP 14–20
[2017-06-11] MEDS: IPRATROPIUM (HFA) 12.9 GM INHALER INH SCH ×3 (01:30→13:24)
[2017-06-11] MEDS: ALBUTEROL 18 GM INHALER INH SCH ×3 (01:30→13:24)
[2017-06-11] MEDS: LORAZEPAM 1 MG TAB PO SCH ×3 (05:40→16:25)
[2017-06-11] MEDS: INSULIN ASPART [NOVOLOG] 3 ML PEN SC SCH ×3 (06:00→16:25)
[2017-06-11 08:31] LABS: BASOPHILS % 0.5 % (0.0-2.0); EOSINOPHILS # 0.2 10^3/ul (0.0-0.5); EOSINOPHILS % 2.7 % (0.0-7.0); HEMATOCRIT 31.9 % (42.0-52.0); HEMOGLOBIN 9.9 g/dl (14.0-18.0); LYMPHOCYTES # 2.1 10^3/ul (0.8-2.9); LYMPHOCYTES % 25.5 % (15.0-51.0); MEAN CORPUSCULAR HEMOGLOBIN 21.9 pg (29.0-33.0); MEAN CORPUSCULAR VOLUME 70.4 fl (82.0-101.0); MEAN PLATELET VOLUME 11.2 fl (7.4-10.4); MONOCYTE # 0.7 10^3/ul (0.3-0.9); MONOCYTES % 8.2 % (0.0-11.0); NEUTROPHIL # 5.3 10^3/ul (1.6-7.5); NEUTROPHILS % 62.7 % (39.0-77.0); PLATELET COUNT 440 10^3/UL (140-415); RED BLOOD COUNT 4.53 10^6/ul (4.70-6.10); RED CELL DISTRIBUTION WIDTH 15.2 % (11.5-14.5); WHITE BLOOD COUNT 8.4 10^3/ul (4.8-10.8)
[2017-06-11] MEDS: DOCUSATE SODIUM 10 MG/ML (10ML CUP) PO SCH (08:37)
[2017-06-11] MEDS: SENNA (PO SYG) GTB SCH (08:37)
[2017-06-11] MEDS: COLISTIMETHATE 100 MG in SOD CHLORIDE 0.9% 100 ML IVPB SCH (08:37)
[2017-06-11] MEDS: FISH OIL 1,000 MG CAP PO SCH ×2 (08:38→12:29)
[2017-06-11] MEDS: MULTIVITAMINS THERAPEUTIC TAB PO SCH (08:38)
[2017-06-11] MEDS: POLYETHYLENE GLYCOL 17 GM PACKET PO SCH (08:38)
[2017-06-11] MEDS: FERROUS SULFATE (EC) 325 MG TAB PO SCH (08:38)
[2017-06-11] MEDS: PHENOBARBITAL 32.4 MG TAB GTB SCH (08:38)
[2017-06-11] MEDS: SODIUM CHLORIDE 1 GM TAB PO SCH ×2 (08:38→12:29)
[2017-06-11] MEDS: BISACODYL 10 MG SUPP PR SCH (08:38)
[2017-06-11] MEDS: BACLOFEN 10 MG TAB GTB SCH ×2 (08:38→12:29)
[2017-06-11] MEDS: METOPROLOL 25 MG TAB GTB SCH (08:38)
[2017-06-11] MEDS: ASCORBIC ACID 500 MG TAB PO SCH (08:38)
[2017-06-11] MEDS: BALSAM PERU/CASTOR OIL 60 GM TUBE TOP SCH (08:39)
[2017-06-11 09:08] LABS: CALCIUM 9.1 mg/dl (8.4-10.2); CREATININE 0.51 mg/dl (0.61-1.24); POTASSIUM 3.9 mmol/L (3.5-5.1)
--- NOTE | 2017-06-11 10:08 | CONS ---
Date/Time of Note Date/Time of Note DATE: 06/11/17 TIME: 10:06 Assessment/Plan Assessment/Plan Additional Assessment/Plan Ventilator setting; AC of 14, tidal volume 600, PEEP of 5, 30% FiO2. Assessment and recommendations; 1. Patient admitted with severe sepsis from gram-negative and gram-positive bacteremia, clinically improved. 2. Status post severe anoxic brain injury patient remains chronically ventilator dependent. Continue current treatment. Consultation Date/Type/Reason Admit Date/Time May 29, 2017 at 21:56 Initial Consult Date 05/30/17 Type of Consultation: Pulmonary 24 HR Interval Summary Free Text/Dictation Patient's condition remains stable. Remains essentially unresponsive due to severe anoxic brain injury. Remains ventilator dependent. Has remained hemodynamically stable. General exam; young male, on ventilator via tracheostomy, awake but unresponsive to any commands. Currently in no distress. Exam/Review of Systems Vital Signs Vitals Vital Signs Date Time Temp Pulse Resp B/P Pulse Ox O2 Delivery O2 Flow Rate FiO2 06/11/17 09:13 91 14 100 30 06/11/17 07:42 99.9 146/72 06/09/17 20:00 Mechanical Ventilator Intake and Output 06/10/17 06/10/17 06/11/17 15:00 23:00 07:00 Intake Total 100 ml 1150 ml 950 ml Output Total 650 ml 1000 ml Balance 100 ml 500 ml -50 ml Exam HEENT exam; supple neck, no JVD. No lymphadenopathy. Midline trachea. No thyromegaly. Tracheostomy placed. Patient has fair dentition. Multiple well- healed cranial scars are present. Chest exam; clear to auscultation. S1-S2 audible, no murmurs. Regular rhythm. Abdomen exam; soft, G-tube in place. Nondistended. Bowel sounds audible. Extremity exam; no edema. Patient does have contractures involving all 4 extremities. 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 Results Result Diagram: 06/11/17 0753 06/11/17 0753 Results 24 hrs Laboratory Tests Test 06/10/17 11:57 06/10/17 12:55 06/10/17 17:04 06/10/17 20:52 Bedside Glucose 97 95 99 Urine Color SHAYAN Urine Clarity SLIGHTLY CLOUDY A Urine pH 6.0 Urine Specific [place] 1.015 Urine Ketones NEGATIVE Urine Nitrite NEGATIVE Urine Bilirubin NEGATIVE Urine Urobilinogen 2+ H Urine Leukocyte Esterase TRACE A Urine Microscopic RBC 178 H Urine Microscopic WBC 17 H Urine Squamous Epithelial Cells FEW Urine Mucus FEW A Urine Hemoglobin 3+ H Urine Glucose NEGATIVE Urine Total Protein 3+ H Test 06/10/17 23:27 06/11/17 05:39 06/11/17 07:53 Bedside Glucose 105 110 White Blood Count 8.4 Red Blood Count 4.53 L Hemoglobin 9.9 L Hematocrit 31.9 L Mean Corpuscular Volume 70.4 L Mean Corpuscular Hemoglobin 21.9 L Mean Corpuscular Hemoglobin Concent 31.0 L Red Cell Distribution Width 15.2 H Platelet Count 440 H Mean Platelet Volume 11.2 H Neutrophils % 62.7 Lymphocytes % 25.5 Monocytes % 8.2 Eosinophils % 2.7 Basophils % 0.5 Nucleated Red Blood Cells % 0.0 Neutrophils # 5.3 Lymphocytes # 2.1 Monocytes # 0.7 Eosinophils # 0.2 Basophils # 0.0 Nucleated Red Blood Cells # 0.0 Sodium Level 129 L Potassium Level 3.9 Chloride Level 94 L Carbon Dioxide Level 26 Anion Gap 13 Blood Urea Nitrogen 16 Creatinine 0.51 L Glucose Level 94 Calcium Level 9.1 Medications Medications Current Medications Hydromorphone HCl (Dilaudid) 1.5 mg ONCE PRN IV PAIN Last administered on 02:24; Admin Dose 1.5 MG; Start 05/30/17 at 02:07 Lorazepam (Ativan) 2 mg Q6H PRN PO SEIZURES Last administered on 05/30/17 09: 40; Admin Dose 2 MG; Start 05/30/17 at 02:30 Ondansetron HCl (Zofran Inj) 4 mg Q6H PRN IV NAUSEA AND/OR VOMITING; Start at 03:00 Acetaminophen (Tylenol Tab) 1,000 mg Q6H PRN PO PAIN LEVEL 6-10; Start at 03:00 Ascorbic Acid (Vitamin C) 500 mg DAILY PO Last administered on 06/11/17 08:38 ; Admin Dose 500 MG; Start 05/30/17 at 09:00 Bisacodyl (Dulcolax Supp) 10 mg DAILY [place] Last administered on 06/11/17 08:38; Admin Dose 10 MG; Start 05/30/17 at 09:00 Docusate Sodium (Colace Liquid Cup) 200 mg DAILY PO Last administered on 08:37; Admin Dose 200 MG; Start 05/30/17 at 09:00 Insulin Glargine (Lantus) 8 unit QHS SC Last administered on 06/10/17 20:56; Admin Dose 8 UNIT; Start 05/30/17 at 21:00 Multivitamins Therapeutic (Theragran) 1 tab DAILY PO Last administered on 08:38; Admin Dose 1 TAB; Start 05/30/17 at 09:00 Polyethylene Glycol (Miralax) 17 gm DAILY PO Last administered on 06/11/17 08: 38; Admin Dose 17 GM; Start 05/30/17 at 09:00 Miscellaneous Information 1 ea NOTE XX ; Start 05/30/17 at 07:30 Glucose (Glutose) 15 gm Q15M PRN PO DECREASED GLUCOSE; Start 05/30/17 at 07:30 Glucose (Glutose) 22.5 gm Q15M PRN PO DECREASED GLUCOSE; Start 05/30/17 at 07: 30 Dextrose (D50w Syringe) 25 ml Q15M PRN IV DECREASED GLUCOSE; Start 05/30/17 at 07:30 Dextrose (D50w Syringe) 50 ml Q15M PRN IV DECREASED GLUCOSE; Start 05/30/17 at 07:30 Glucagon (Glucagen) 1 mg Q15M PRN IM DECREASED GLUCOSE; Start 05/30/17 at 07:30 Glucose (Glutose) 15 gm Q15M PRN BUCCAL DECREASED GLUCOSE; Start 05/30/17 at 07 :30 Lorazepam (Ativan) 1 mg Q1H PRN IV SEIZURES Last administered on 06/08/17 14: 01; Admin Dose 1 MG; Start 05/30/17 at 15:00 IV Flush (NS 10 ml) 10 ml PRN PRN IV IV PROTOCOL; Start 05/30/17 at 18:30 Insulin Aspart (Novolog Insulin Pen) NOVOLOG *MILD* ALGORI... Q6 SC Last administered on 05/31/17 11:43; Admin Dose 1 UNIT; Start 05/31/17 at 00:00 Fish Oil (Fish Oil) 1,000 mg TID PO Last administered on 06/11/17 08:38; Admin Dose 1,000 MG; Start 05/31/17 at 10:00 Morphine Sulfate (morphine) 2 mg Q4H PRN IV breakthrough pain Last administered on 06/01/17 13:22; Admin Dose 2 MG; Start 06/01/17 at 12:00 Acetaminophen/ Hydrocodone Bitart ([place] (7.5-325)) 1 tab Q4H PRN PO PAIN LEVEL 8-10; Start 06/01/17 at 11:30 Baclofen (Lioresal) 10 mg TID GTB Last administered on 06/11/17 08:38; Admin Dose 10 MG; Start 06/03/17 at 21:00 Metoprolol Tartrate (Lopressor) 25 mg BID GTB Last administered on 06/11/17 08 :38; Admin Dose 25 MG; Start 06/03/17 at 21:00 Phenobarbital (Luminal) 64.8 mg BID GTB Last administered on 06/11/17 08:38; Admin Dose 64.8 MG; Start 06/03/17 at 21:00 Enoxaparin Sodium (Lovenox) 100 mg Q24H SC Last administered on 06/10/17 12:18 ; Admin Dose 100 MG; Start 06/04/17 at 13:00 Acetaminophen (Tylenol Tab) 650 mg Q6H PRN GTB PAIN LEVEL 1-3 OR FEVER Last administered on 06/10/17 12:18; Admin Dose 650 MG; Start 06/06/17 at 09:00 Senna 5 ml 5 ml BID GTB Last administered on 06/11/17 08:37; Admin Dose 5 ML; Start 06/07/17 at 21:00 Colistimethate Sodium/Sodium Chloride (Coly-Mycin/NS) 100 ml @ 200 mls/hr Q12 IVPB Last administered on 06/11/17 08:37; Admin Dose 200 MLS/HR; Start at 21:00 Lorazepam (Ativan) 2 mg Q6H PO Last administered on 06/11/17 05:40; Admin Dose 2 MG; Start 06/08/17 at 17:00 Ferrous Sulfate (Ferrous Sulfate (Ec)) 325 mg BID PO Last administered on 08:38; Admin Dose 325 MG; Start 06/09/17 at 14:30 Sodium Chloride (Nacl) 1 gm TID PO Last administered on 06/11/17t 08:38; Admin Dose 1 GM; Start 06/10/17 at 13:00 DONOVAN NULL Jun 11, 2017 10:08
[2017-06-11] MEDS: ENOXAPARIN 100 MG/ML SYG SC SCH (12:33)
--- NOTE | 2017-06-11 13:10 | CONS ---
Date/Time of Note Date/Time of Note DATE: 06/11/17 TIME: 13:09 Assessment/Plan Assessment/Plan Chief Complaint/Hosp Course SUBJECTIVE DATA: Acute changes per report spiking low-grade fevers. T-max 101.9 T-current 99.1 pulse 96 respirations 17 blood pressure 129/69 saturation 90-100 FiO2 WBC 8.4 no shift no bands BUN 16 creatinine 0.51 Blood cultures repeated on June 04 + MDR Kleb Antimicrobials: Colistin INDWELLINGS: Trach, PEG, Rodriguez, PICC line. OBJECTIVE DATA: GENERAL: Chronically ill-appearing, middle-aged man, who is in persistent vegetative state. HEENT: Head atraumatic, normocephalic. Sclerae anicteric. NECK: Obese. CHEST: Rise symmetrical. Breath sounds diminished at the bases. HEART: S1, S2. ABDOMEN: Soft, bowel sounds present. EXTREMITIES: With bilateral edema. ASSESSMENT: 1. Sepsis with bacteremia on admission and ongoing fevers 2. Escherichia coli extended-spectrum beta-lactamase urinary tract infection. 3. Chronic respiratory failure. 4. Anoxic brain injury. 5. Diabetes. 6. Left subclavian DVT 7. Coag negative staph bacteremia, consistent with contaminant PLAN: Clinically unchanged, continues to spike fevers, repeat bld and urine cx negative, will order CT abdomen, pelvis, chest DW staff Problems: Consultation Date/Type/Reason Admit Date/Time May 29, 2017 at 21:56 Initial Consult Date 05/30/17 Type of Consultation: id Exam/Review of Systems Vital Signs Vitals Vital Signs Date Time Temp Pulse Resp B/P Pulse Ox O2 Delivery O2 Flow Rate FiO2 06/11/17 12:34 96 06/11/17 11:38 99.1 17 129/69 92 06/11/17 11:13 30 06/09/17 20:00 Mechanical Ventilator Intake and Output 06/10/17 06/10/17 06/11/17 15:00 23:00 07:00 Intake Total 100 ml 1150 ml 950 ml Output Total 650 ml 1000 ml Balance 100 ml 500 ml -50 ml Results Result Diagram: 06/11/17 0753 06/11/17 0753 Results 24 hrs Laboratory Tests Test 06/10/17 17:04 06/10/17 20:52 06/10/17 23:27 06/11/17 05:39 Bedside Glucose 95 99 105 110 Test 06/11/17 07:53 06/11/17 12:25 White Blood Count 8.4 Red Blood Count 4.53 L Hemoglobin 9.9 L Hematocrit 31.9 L Mean Corpuscular Volume 70.4 L Mean Corpuscular Hemoglobin 21.9 L Mean Corpuscular Hemoglobin Concent 31.0 L Red Cell Distribution Width 15.2 H Platelet Count 440 H Mean Platelet Volume 11.2 H Neutrophils % 62.7 Lymphocytes % 25.5 Monocytes % 8.2 Eosinophils % 2.7 Basophils % 0.5 Nucleated Red Blood Cells % 0.0 Neutrophils # 5.3 Lymphocytes # 2.1 Monocytes # 0.7 Eosinophils # 0.2 Basophils # 0.0 Nucleated Red Blood Cells # 0.0 Sodium Level 129 L Potassium Level 3.9 Chloride Level 94 L Carbon Dioxide Level 26 Anion Gap 13 Blood Urea Nitrogen 16 Creatinine 0.51 L Glucose Level 94 Calcium Level 9.1 Bedside Glucose 99 Medications Medications Current Medications Hydromorphone HCl (Dilaudid) 1.5 mg ONCE PRN IV PAIN Last administered on 02:24; Admin Dose 1.5 MG; Start 05/30/17 at 02:07 Lorazepam (Ativan) 2 mg Q6H PRN PO SEIZURES Last administered on 05/30/17 09: 40; Admin Dose 2 MG; Start 05/30/17 at 02:30 Ondansetron HCl (Zofran Inj) 4 mg Q6H PRN IV NAUSEA AND/OR VOMITING; Start at 03:00 Acetaminophen (Tylenol Tab) 1,000 mg Q6H PRN PO PAIN LEVEL 6-10; Start at 03:00 Ascorbic Acid (Vitamin C) 500 mg DAILY PO Last administered on 06/11/17 08:38 ; Admin Dose 500 MG; Start 05/30/17 at 09:00 Bisacodyl (Dulcolax Supp) 10 mg DAILY [place] Last administered on 06/11/17 08:38; Admin Dose 10 MG; Start 05/30/17 at 09:00 Docusate Sodium (Colace Liquid Cup) 200 mg DAILY PO Last administered on 08:37; Admin Dose 200 MG; Start 05/30/17 at 09:00 Insulin Glargine (Lantus) 8 unit QHS SC Last administered on 06/10/17 20:56; Admin Dose 8 UNIT; Start 05/30/17 at 21:00 Multivitamins Therapeutic (Theragran) 1 tab DAILY PO Last administered on 08:38; Admin Dose 1 TAB; Start 05/30/17 at 09:00 Polyethylene Glycol (Miralax) 17 gm DAILY PO Last administered on 06/11/17 08: 38; Admin Dose 17 GM; Start 05/30/17 at 09:00 Miscellaneous Information 1 ea NOTE XX ; Start 05/30/17 at 07:30 Glucose (Glutose) 15 gm Q15M PRN PO DECREASED GLUCOSE; Start 05/30/17 at 07:30 Glucose (Glutose) 22.5 gm Q15M PRN PO DECREASED GLUCOSE; Start 05/30/17 at 07: 30 Dextrose (D50w Syringe) 25 ml Q15M PRN IV DECREASED GLUCOSE; Start 05/30/17 at 07:30 Dextrose (D50w Syringe) 50 ml Q15M PRN IV DECREASED GLUCOSE; Start 05/30/17 at 07:30 Glucagon (Glucagen) 1 mg Q15M PRN IM DECREASED GLUCOSE; Start 05/30/17 at 07:30 Glucose (Glutose) 15 gm Q15M PRN BUCCAL DECREASED GLUCOSE; Start 05/30/17 at 07 :30 Lorazepam (Ativan) 1 mg Q1H PRN IV SEIZURES Last administered on 06/08/17 14: 01; Admin Dose 1 MG; Start 05/30/17 at 15:00 IV Flush (NS 10 ml) 10 ml PRN PRN IV IV PROTOCOL; Start 05/30/17 at 18:30 Insulin Aspart (Novolog Insulin Pen) NOVOLOG *MILD* ALGORI... Q6 SC Last administered on 05/31/17 11:43; Admin Dose 1 UNIT; Start 05/31/17 at 00:00 Fish Oil (Fish Oil) 1,000 mg TID PO Last administered on 06/11/17 12:29; Admin Dose 1,000 MG; Start 05/31/17 at 10:00 Morphine Sulfate (morphine) 2 mg Q4H PRN IV breakthrough pain Last administered on 06/01/17 13:22; Admin Dose 2 MG; Start 06/01/17 at 12:00 Acetaminophen/ Hydrocodone Bitart ([place] (7.5-325)) 1 tab Q4H PRN PO PAIN LEVEL 8-10; Start 06/01/17 at 11:30 Baclofen (Lioresal) 10 mg TID GTB Last administered on 06/11/17 12:29; Admin Dose 10 MG; Start 06/03/17 at 21:00 Metoprolol Tartrate (Lopressor) 25 mg BID GTB Last administered on 06/11/17 08 :38; Admin Dose 25 MG; Start 06/03/17 at 21:00 Phenobarbital (Luminal) 64.8 mg BID GTB Last administered on 06/11/17 08:38; Admin Dose 64.8 MG; Start 06/03/17 at 21:00 Enoxaparin Sodium (Lovenox) 100 mg Q24H SC Last administered on 06/11/17 12:33 ; Admin Dose 100 MG; Start 06/04/17 at 13:00 Acetaminophen (Tylenol Tab) 650 mg Q6H PRN GTB PAIN LEVEL 1-3 OR FEVER Last administered on 06/10/17 12:18; Admin Dose 650 MG; Start 06/06/17 at 09:00 Senna 5 ml 5 ml BID GTB Last administered on 06/11/17 08:37; Admin Dose 5 ML; Start 06/07/17 at 21:00 Colistimethate Sodium/Sodium Chloride (Coly-Mycin/NS) 100 ml @ 200 mls/hr Q12 IVPB Last administered on 06/11/17 08:37; Admin Dose 200 MLS/HR; Start at 21:00 Lorazepam (Ativan) 2 mg Q6H PO Last administered on 06/11/17 11:10; Admin Dose 2 MG; Start 06/08/17 at 17:00 Ferrous Sulfate (Ferrous Sulfate (Ec)) 325 mg BID PO Last administered on 08:38; Admin Dose 325 MG; Start 06/09/17 at 14:30 Sodium Chloride (Nacl) 1 gm TID PO Last administered on 06/11/17 12:29; Admin Dose 1 GM; Start 06/10/17 at 13:00 MIKE TRACY NP Jun 11, 2017 13:10
[2017-06-11] MEDS ORDERED: BARIUM SULF 2% 450 ML BTL (BERRY SMOOTHIE) PO ONE (13:30)
--- NOTE | 2017-06-11 15:44 | RADRPT ---
PROCEDURE: CT Chest, Abdomen and Pelvis with intravenous contrast CLINICAL INDICATION: Pneumonia, infection, pain. TECHNIQUE: CT of the chest, abdomen and pelvis was performed on a multidetector scanner following the uncomplicated IV administration of 100 cc of Omnipaque 300. Coronal and sagittal images were re formatted from the axial data set. One or more of the following dose reduction techniques were used : automated exposure control, adjustment of the mA and/or kV according to patient size, use of iter ative reconstruction technique. CTDI = 16.17 mGy. DLP = 1365.74 mGy-cm. COMPARISON: CT, 05/30/2017 FINDINGS: CT chest: Dense consolidation is identified within the right lower lobe. Retained secretions are present withi n right lower lobe bronchi. Trace amount of right pleural fluid is present. No pulmonary edema or pn eumothorax is identified. Tracheostomy tube tip is in the mid trachea. No gross evidence of pulmonar y nodule or mass is identified. The heart size is normal without pericardial effusion. There is no thoracic aortic aneurysm or disse ction. No mediastinal, hilar, axillary or supraclavicular lymphadenopathy is identified. Right-sided PICC line tip is in the right subclavian vein. CT abdomen and pelvis: Cholelithiasis is seen without evidence for cholecystitis. Liver, biliary tree, pancreas, spleen and adrenal glands are unremarkable except for benign hepatic cysts. Heterogeneously enhancing 3.0 cm m ass is seen in the lateral left renal mid pole (3-128), concerning for primary renal neoplasm. Bilat eral benign appearing renal cysts are seen as well. No urolithiasis or obstructive uropathy is ident ified. Gastrostomy tube tip is within the stomach. There is no abdominal aortic aneurysm or dissection. There is no retroperitoneal lymphadenopathy. The crystal hepatis region is clear. There is mild diffuse dilatation of large and small bowel, suggestive of ileus. The patient is statu s post partial small bowel resection, with grossly appearance of the surgical staple line. No divert iculosis, diverticulitis, colitis or appendicitis is identified. Urinary bladder is collapsed around a Rodriguez catheter balloon. No pelvic mass, free fluid or lymphadenopathy is identified. Severe osteopenia is noted. There is diffuse degenerative enthesopathy of the spine. No gross eviden ce of focal osteolytic or osteoblastic lesion is identified. There is severe bilateral hip joint ost eoarthrosis. IMPRESSION: 1. Heterogeneously enhancing 3.0 cm mass is seen arising from the lateral left renal mid pole, conc erning for primary renal neoplasm. 2. Dense consolidation is again noted within the right lower lobe, similar to the prior CT - consid erations include atelectasis and pneumonia. Retained secretions are present within right lower lobe bronchi. 3. There is diffuse dilatation of large and small bowel, suggestive of ileus. No evidence of bowel obstruction or perforation is identified. 4. Right-sided PICC line tip is in the subclavian vein. 5. Tracheostomy tube, gastrostomy tube, and Rodriguez catheter are in appropriate position. 6. Cholelithiasis is seen without evidence for cholecystitis. 7. Severe osteopenia is again noted. RPTAT: AAOO .Ralph Herrera MD, Date Time Electronically viewed and signed by .Rlaph Herrera MD, on 06/11/2017 15:44 .R/
[2017-06-11] MEDS ORDERED: IODIXANOL LOCM 100 ML BTL ONE (17:54)
[2017-06-11] MEDS ORDERED: SOD CHLORIDE 0.9% 100 ML ONE (17:54)
[2017-06-11] MEDS ORDERED: IOHEXOL 300MG/ML 150 ML BTL ONE (17:55)
--- NOTE | 2017-06-14 16:24 | OPR ---
DATE OF OPERATION: 06/05/2017 PREOPERATIVE DIAGNOSIS: Urinary stricture. POSTOPERATIVE DIAGNOSIS: Urinary stricture. PROCEDURE: Cystoscopic examination, insertion of urethral catheter and removal of suprapubic catheter. ANESTHESIA: general. OPERATING SURGEON: Bishop Gifford MD INDICATIONS FOR PROCEDURE: This is a very unfortunate quadriplegic male who has a chronic indwelling Rodriguez. Attempt was made to put a Rodriguez in on the floor and there was damage done to the urethra, such that a catheter could not be placed. A suprapubic catheter was placed. The patient is brought down to the operating room now to insert a Rodriguez catheter under direct vision. PROCEDURE: The patient was taken to the operating room. After smooth induction of anesthesia, he was prepped and draped in a sterile fashion. He was done in the supine position. He had severe contractures of his lower extremities. Flexible cystoscopic examination was carried out and the area of injury in the urethra was bypassed and a guidewire was then placed under direct vision into the bladder. A Rodriguez catheter was then inserted over the guidewire into the bladder. Its position was confirmed and the balloon was inflated. The bladder was irrigated. The suprapubic catheter was then removed and a sterile dressing was applied. The patient tolerated the procedure well. He left the operating room in good condition. Dictated By: Bishop Gifford MD /[email or web address] /Document#: [id number]
== END 2017-06-11 17:50 | DRG 870 ==
LOC: E/R 18:18 → TEL 21:56
PROVIDERS: ADMIT Internal Medicine; ATTEND Internal Medicine
PROC: 5A1955Z Respiratory Ventilation, Greater than 96 Consecutive Hours (ICD-10-PCS; principal; 2017-05-30)
PROC: 0T9B30Z Drainage of Bladder with Drainage Device, Percutaneous Approach (ICD-10-PCS; 2017-06-05)
PROC: 0TPBX0Z Removal of Drainage Device from Bladder, External Approach (ICD-10-PCS; 2017-06-05)
DX: A41.51 Sepsis due to Escherichia coli [E. coli] (principal); G82.50 Quadriplegia, unspecified; R40.3 Persistent vegetative state; Z99.11 Dependence on respirator [ventilator] status; J18.9 Pneumonia, unspecified organism; J96.10 Chronic respiratory failure, unspecified whether with hypoxia or hypercapnia; I82.623 Acute embolism and thrombosis of deep veins of upper extremity, bilateral; N39.0 Urinary tract infection, site not specified; N13.9 Obstructive and reflux uropathy, unspecified; Z16.12 Extended spectrum beta lactamase (ESBL) resistance; R13.10 Dysphagia, unspecified; E11.9 Type 2 diabetes mellitus without complications; D50.9 Iron deficiency anemia, unspecified; Y84.6 Urinary catheterization as the cause of abnormal reaction of the patient, or of later complication, without mention of misadventure at the time of the procedure; Y92.238 Other place in hospital as the place of occurrence of the external cause; R31.0 Gross hematuria; N35.9 Urethral stricture, unspecified; Z87.820 Personal history of traumatic brain injury; Z93.0 Tracheostomy status; G40.909 Epilepsy, unspecified, not intractable, without status epilepticus
CPT/HCPCS: 36415; 36569; 36600; 71010; 71260; 74176; 74177; 75820; 76705; 76937; 80048; 80053; 80184; 80202; 81001; 82565; 82803; 82962; 83036; 83540; 83605; 83735; 84100; 84484; 84520; 85014; 85018; 85025; 85610; 85730; 87040; 87081; 87086; 93005; 93970; 94002; 94003; 94640; 96374; 96375; C1769; J0692; J1170; J1335; J1650; J1815; J2060; J2185; J2270; J2916; J3370; J3475; J3480; J7030; J7040; J7050; Q9967